=== PATIENT | female | born 1965 | race Caucasian/White ===

== ENCOUNTER 2022-08-30 11:29 | Outpatient (OUT) | payer OTHER, SELFPAY ==
--- NOTE | 2022-08-30 11:44 | XR_ITS ---
The [address] [address] Patient Name: CLARISSA BANEGAS MRN: [id number] date: 1965 Sex: F Assigned Patient Location: [facility] Current Patient Location: [facility] Accession/Order Number: [id number] Exam Date: 08/30/2022 11:44 Report Date: 08/30/2022 13:13 At the request of: EFRAIN RDZ Procedure: XR foot LT min 3V PROCEDURE: XR foot LT min 3V HISTORY: LEFT FOOT PAIN ; acute left heel pain; no known injury COMPARISON: None. FINDINGS: BONES:Small degenerative enthesophyte at the Achilles tendon insertion into the calcaneus. No calcaneal plantar spur. Mild degenerative changes of the tarsal-metatarsal joints and the first metatarsophalangeal joint. No fracture, dislocation, bone lesion. SOFT TISSUES:No visible soft tissue swelling. EFFUSION:None visible. OTHER: Negative. IMPRESSION: 1. Small Achilles tendon degenerative enthesophyte of uncertain clinical significance. 2. No acute or specific findings to account for patient's symptoms. Electronically authenticated by: YARITZA BOYER Date: 08/30/2022 13:13
== END 2022-08-30 11:30 ==
LOC: RAD 11:29
PROVIDERS: PCP Family Medicine; Visit Provider Student in an Organized Health Care Education/Training Program
DX: M79.672 Pain in left foot (principal)
CPT/HCPCS: 73630

== ENCOUNTER 2022-09-01 06:58 | Outpatient (RCR) | payer OTHER, SELFPAY | END 2022-09-22 13:20 | disposition home or self-care (01) | LOC: PT 06:58 | PROVIDERS: PCP Family Medicine; Visit Provider Student in an Organized Health Care Education/Training Program | DX: M79.672 Pain in left foot (principal) | CPT/HCPCS: 97010; 97035; 97110; 97140; 97161; 97530 ==

== ENCOUNTER 2024-01-03 08:55 | Outpatient (OUT) | payer OTHER, SELFPAY ==
[2024-01-03 09:27] LABS: Basophils Percent Auto 1.2 % (0.2-2.0); Eosinophils Absolute Auto 0.2 10^3/uL (0.0-0.7); Eosinophils Percent Auto 4.9 % (0.9-7.0); Hematocrit 40.1 % (36.0-48.0); Hemoglobin 12.9 g/dL (12.0-16.0); Immature Granulocytes Abs Auto 0.01 10^3/uL (0.00-0.03); Immature Granulocytes Pct Auto 0.3 % (0.0-0.5); Lymphocytes Absolute Auto 1.7 10^3/uL (1.2-3.8); Lymphocytes Percent Auto 48.1 % (20.5-60.0); Mean Corpuscular HGB Conc 32.2 g/dL (29.9-35.2); Mean Corpuscular Hemoglobin 29.9 pg (26.7-34.0); Mean Platelet Volume 10.3 fL (9.5-13.5); Monocytes Absolute Auto 0.4 10^3/uL (0.3-0.8); Monocytes Percent Auto 11.5 % (1.7-12.0); Neutrophils Absolute Auto 1.2 10^3/uL (1.4-6.5); Platelet Count 256 10^3/uL (150-450); Red Blood Count 4.31 10^6/uL (4.20-5.40); Red Cell Distribution Width 12.4 % (11.0-15.0); White Blood Count 3.5 10^3/uL (4.0-11.0)
[2024-01-03 10:28] LABS: Alanine Aminotransferase 21 U/L (14-59); Albumin Level 3.6 g/dL (3.4-5.0); Alkaline Phosphatase 130 U/L (46-116); Anion Gap 12.7; Aspartate Amino Transferase 20 U/L (15-37); BUN Creatinine Ratio 28.4; Bilirubin Direct 0.2 mg/dL (0.0-0.2); Calcium 9.5 mg/dL (8.5-10.1); Carbon Dioxide 28.4 mmol/L (21.0-32.0); Chloride 107 mmol/L (98-107); Chol HDL Ratio 2.9; Cholesterol 151 mg/dL (<=200); Estimated GFR (African America >60 (>=60 mL/min/1.73m^2); Estimated GFR (Non-African Ame >60 (>=60 mL/min/1.73m^2); Globulin 3.6 g/dL; Glucose 87 mg/dL (74-106); HDL Cholesterol 52 mg/dL (40-60); LDL Cholesterol Calculated 83.6 mg/dL; Potassium 4.1 mmol/L (3.5-5.1); Sodium 144 mmol/L (136-145); Thyroid Stimulating Hormone 1.369 uIU/mL (0.358-3.740); Total Protein 7.2 g/dL (6.4-8.2); Triglycerides 77 mg/dL (<=150); VLDL CHOLESTEROL 15.4 mg/dL
[2024-01-03 10:41] LABS: Bilirubin Total 0.8 mg/dL (0.2-1.0)
[2024-01-03 11:49] LABS: Estimated Average Glucose 105 mg/dL; Glycohemoglobin A1C 5.3 % (4.5-6.2)
== END 2024-01-03 08:56 | disposition home or self-care (01) ==
LOC: LAB 08:57
PROVIDERS: PCP Family Medicine; Visit Provider Family Medicine
DX: Z00.00 Encounter for general adult medical examination without abnormal findings (principal); E55.9 Vitamin D deficiency, unspecified
CPT/HCPCS: 36415; 80048; 80061; 80076; 82306; 83036; 84443; 85025

== ENCOUNTER 2024-03-18 10:41 | Outpatient (OUT) | payer OTHER, SELFPAY ==
--- NOTE | 2024-03-18 | XR_ITS ---
The [address] [address] Patient Name: CLARISSA BANEGAS MRN: [id number] date: 1965 Sex: F Assigned Patient Location: [facility] Current Patient Location: Accession/Order Number: [id number] Exam Date: 03/18/2024 10:42 Report Date: 03/19/2024 06:49 At the request of: SEPIDEH LIAO Procedure: XR foot LT min 3V PROCEDURE: XR foot LT min 3V HISTORY: LEFT FOOT PAIN ; first metatarsophalangeal joint pain COMPARISON: XR foot left 08/30/2022 FINDINGS: BONES:No fracture, acute abnormality, or significant arthropathy. Calcaneal plantar spur. SOFT TISSUES:No visible soft tissue swelling. EFFUSION:None visible. OTHER: Negative. XR/XR foot LT min 3V IMPRESSION: 1. No acute abnormality or significant degenerative joint disease. Electronically authenticated by: YARITZA BOYER Date: 03/19/2024 06:49
== END 2024-03-18 10:42 | disposition home or self-care (01) ==
LOC: RAD 10:41
PROVIDERS: PCP Family Medicine; Visit Provider Podiatrist Foot & Ankle Surgery
DX: M79.672 Pain in left foot (principal)
CPT/HCPCS: 73630

== ENCOUNTER 2024-04-16 12:48 | Outpatient (OUT) | payer OTHER, SELFPAY ==
[2024-04-16 13:05] LABS: Hematocrit 39.9 % (36.0-48.0); Hemoglobin 12.6 g/dL (12.0-16.0); Mean Corpuscular HGB Conc 31.6 g/dL (29.9-35.2); Mean Corpuscular Hemoglobin 29.9 pg (26.7-34.0); Mean Corpuscular Volume 94.8 fL (81.0-99.0); Mean Platelet Volume 10.4 fL (9.5-13.5); Platelet Count 232 10^3/uL (150-450); Red Blood Count 4.21 10^6/uL (4.20-5.40); Red Cell Distribution Width 12.2 % (11.0-15.0); White Blood Count 2.8 10^3/uL (4.0-11.0)
--- OUTSIDE RECORDS SUMMARY | 2024-04-16 13:05 | XMS_ITS | CCD ---
Author Organization [facility] ion Partnership [employer] [facility] [employer] [facility] Care Team Providers Care Historical Site Guide Name Role Phone DR KEN LARRY Admitting Unavailable NADERER, DR KEN Weiner Attending Unavailable NADERER, DR KEN Weiner Primary Care Unavailable ZIEBER, DR YARITZA White Consulting Unavailable NADERER, DR KEN Weiner Consulting Unavailable ARIEL, OTTO Referring Unavailable ARIEL, OTTO Referring Unavailable ARIEL, OTTO Referring Unavailable ARIEL, OTTO Referring Unavailable RATNA, NASHEED Referring Unavailable ARIEL, OTTO Attending Unavailable ARIEL, OTTO Admitting Unavailable ARIEL, OTTO Attending Unavailable RATNA, NASHEED Attending Unavailable ARIEL, OTTO Attending Unavailable ARIEL, OTTO Attending Unavailable Ken Larry MD Primary Care Provider [phone] Ken Larry MD Unavailable Kolanna DO, Emir Unavailable Unavailable Kolich, Emir Attending Unavailable Kolich, Emir Referring Unavailable Naderejerson, Ken Weiner Primary Care Unavailable Kolich, Emir Attending Unavailable Kolich, Emir Referring Unavailable Naderer, Ken Weiner Primary Care Unavailable Kolich DO, Emir Unavailable Unavailable Kolich DO, Emir Unavailable Unavailable Kolich DO, Emir Unavailable Unavailable NADERER, KEN Attending Unavailable NADERER, KEN Attending Unavailable NADERER, KEN Attending Unavailable Allergies Allergy Classification Reported Allergen(s) Allergy Type Date of Onset Reaction(s) Facility (1 source) TETANUS AND DIPHTHER. TOX (PF); Translations: [TETANUS AND DIPHTHER. TOX (PF)] Propensity to adverse reactions to drug (disorder) 3 [facility]ository (15 sources) Tetanus vaccine Drug Allergy 4 Unknown [facility] Healthcare (4 sources) Tetanus Vaccines and Toxoid; Translations: [Tetanus Vaccines and Toxoid] propensity to adverse reactions to drug [facility] Medications Current Medications Medication Drug Class(es) Dates Sig (Normalized) Sig (Original) acetaminophen 325 mg / HYDROcodone bitartrate 5 mg oral tablet (15 sources) Opioid Agonist Start: 03-10-2024 End: 05-01-2024 take 1 tablet by mouth four times daily as needed for pain HYDROcodone-acetami nophen ([place]) 5-325 MG tablet Indications: Fibromyalgia syndrome Take 1 tablet by mouth 4 (four) times a day as needed for severe pain for up to 15 days 60 tablet 04/16/2024 05/01/2024 Active Start: 01-07-2024 End: 01-14-2024 take 1 tablet by mouth four times daily as needed for pain HYDROcodone-acetaminophen ([place]) 5-325 MG tablet Indications: Fibromyalgia syndrome Take 1 tablet by mouth 4 (four) times a day as needed for severe pain for up to 7 days 28 tablet 01/07/2024 01/14/2024 Active [id number] 200 actuat albuterol 0.09 mg/actuat metered dose inhaler (8 sources) beta2-Adrenergic Agonist Start: 03-25-2024 take 2 puff(s) by inhalation every four hours for wheezing albuterol HFA 90 mcg/act inhaler Indications: Acute bronchitis due to other specified organisms Inhale 2 puffs every 4 (four) hours if needed for shortness of breath or wheezing 18 g 2 03/25/2024 Active amitriptyline hydrochloride 25 mg oral tablet (2 sources) Tricyclic Antidepressant Start: 04-16-2024 take 1 tablet by mouth at bedtime amitriptyline (Elavil) 25 MG tablet Indications: Fibromyalgia syndrome Take 1 tablet (25 mg) by mouth at bedtime 30 tablet 3 04/16/2024 Active Start: 04-16-2024 take 1 tablet by noah th at bedtime amitriptyline (Elavil) 25 MG tablet Indications: Fibromyalgia syndrome Take 1 tablet (25 mg) by mouth at bedtime 30 tablet 3 04/16/2024 Active amLODIPine 2.5 mg oral tablet (15 sources) Dihydropyridine Calcium Channel Suresh Start: 08-21-2023 End: 08-20-2024 take 1 tablet by mouth twice daily at bedtime amLODIPine (Norvasc) 2.5 MG tablet Indications: Essential hypertension, benign (CMS/HCC) TAKE 1 TABLET BY MOUTH TWICE DAILY IN THE MORNING and BEFORE bedtime 60 tablet 3 02/11/2024 Active atorvastatin 10 mg oral tablet (15 sources) HMG-CoA Reductase Inhibitor Start: 10-03-2023 take 1 tablet by mouth once daily atorvastatin (Lipitor) 10 MG tablet Indications: Dyslipidemia (CMS/HCC) Take 1 tablet (10 mg) by mouth Daily 90 tablet 3 10/03/2023 Active benzonatate 200 mg oral capsule (8 sources) Non-narcotic Antitussive Start: 03-25-2024 take 1 capsule by mouth three times daily as needed for cough benzonatate (Tessalon) 200 MG capsule Indications: Acute bronchitis due to other specified organisms Take 1 capsule (200 mg) by mouth 3 (three) times a day as needed for cough Do not crush or chew. 20 capsule 1 03/25/2024 Active cefdinir 300 mg oral capsule (2 sources) Cephalosporin Antibacterial Start: 03-13-2024 End: 03-25-2024 take 1 capsule by mouth in the morning cefdinir (Omnicef) 300 MG capsule Indications: Upper respiratory tract infection, unspecified type Take 1 capsule (300 mg) by mouth in the morning and 1 capsule (300 mg) before bedtime. Do all this for 10 days. 20 capsule 03/13/2024 03/25/2024 Discontinued celecoxib 200 mg oral capsule (16 sources) Nonsteroidal Anti-inflammatory Drug Start: 04-14-2024 take 1 capsule by mouth twice daily as needed for pain celecoxib (CeleBREX) 200 MG capsule Indications: Chronic pain syndrome Take 1 capsule (200 mg) by mouth 2 (two) times a day as needed for mild pain or moderate pain 180 capsule 3 04/14/2024 Active Start: 11-27-2023 End: 04-14-2024 take 1 capsule by mouth once daily celecoxib (CeleBREX) 200 MG capsule Indications: Chronic pain syndrome Take 1 capsule (200 mg) by mouth Daily 180 capsule 1 11/27/2023 04/14/2024 Discontinued (Reorder) cholecalciferol 0.05 mg oral capsule (15 sources) Vitamin D Start: 08-21-2023 End: 08-20-2024 take 1 capsule by mouth once daily cholecalciferol (Vitamin D-3) 50 MCG (1999) capsule Indications: Vitamin D deficiency Take 1 capsule (50 mcg) by mouth Daily 30 capsule 11 08/21/2023 08/20/2024 Active FLUoxetine 40 mg oral capsule (15 sources) Serotonin Reuptake Inhibitor Start: 05-21-2023 End: 05-20-2024 take 1 capsule by mouth in the morning FLUoxetine (PROzac) 40 MG capsule Indications: Generalized anxiety disorder (CMS/HCC) Take 1 capsule (40 mg) by mouth in the morning. 30 capsule 11 05/21/2023 05/20/2024 Active gabapentin 600 mg oral tablet (17 sources) Anti-epileptic Agent Start: 04-16-2024 take 1 tablet by mouth in the morning gabapentin (Neurontin) 600 MG tablet Indications: Fibromyalgia syndrome Take 1 tablet (600 mg) by mouth in the morning and 1 tablet (600 mg) before bedtime. 180 tablet 2 04/16/2024 Active Start: 04-16-2024 take 1 tablet by noah th in the morning gabapentin (Neurontin) 600 MG tablet Indications: Fibromyalgia syndrome Take 1 tablet (600 mg) by mouth in the morning and 1 tablet (600 mg) before bedtime. 180 tablet 2 04/16/2024 Active Start: 08-20-2023 End: 04-16-2024 take 1 tablet by mouth at bedtime gabapentin (Neurontin) 600 MG tablet Indications: Chronic pain syndrome take 1 tablet by mouth at bedtime 90 tablet 2 08/20/2023 04/16/2024 Discontinued (Reorder) levoFLOXacin 750 mg oral tablet (3 sources) Quinolone Antimicrobial Start: 03-25-2024 End: 04-01-2024 take 1 tablet by mouth once daily levoFLOXacin (Levaquin) 750 MG tablet Indications: Acute bronchitis due to other specified organisms Take 1 tablet (750 mg) by mouth Daily for 7 days 7 tablet 03/25/2024 04/01/2024 Active meloxicam 15 mg oral tablet (4 sources) Nonsteroidal Anti-inflammatory Drug Start: 11-13-2023 take 1 tablet by mouth once daily meloxicam 15 mg tablet take 1 tablet by oral route daily - Active metoprolol tartrate 50 mg oral tablet (15 sources) beta-Adrenergic Suresh Start: 07-17-2023 End: 07-16-2024 take 1 tablet by mouth in the morning metoprolol tartrate (Lopressor) 50 MG tablet Indications: Essential hypertension, benign (CMS/HCC) Take 1 tablet (50 mg) by mouth in the morning and 1 tablet (50 mg) before bedtime. 180 tablet 3 07/17/2023 07/16/2024 Active predniSONE 10 mg oral tablet (5 sources) Start: 04-16-2024 take 6 tablets by mouth once daily, then take 4 tablets by mouth once daily, then take 2 tablets by mouth once daily, then take 1 tablet by mouth once daily predniSONE (Deltasone) 10 MG tablet Indications: Fibromyalgia syndrome 6 PO daily x 3 days, 4 PO daily x 3 days, 2 PO daily x 3 days, 1 PO daily x 3 days 39 tablet 04/16/2024 Active Start: 04-16-2024 take 6 tablets by mo uth once daily, then take 4 tablets by mouth once daily, then take 2 tablets by mouth once daily, then take 1 tablet by mouth once daily predniSONE (Deltasone) 10 MG tablet Indications: Fibromyalgia syndrome 6 PO daily x 3 days, 4 PO daily x 3 days, 2 PO daily x 3 days, 1 PO daily x 3 days 39 tablet 04/16/2024 Active Start: 03-25-2024 End: 03-31-2024 take 1 tablet by mouth once daily predniSONE (Deltasone) 50 MG tablet Indications: Acute bronchitis due to other specified organisms Take 1 tablet (50 mg) by mouth Daily for 6 days 6 tablet 03/25/2024 03/31/2024 Active tiZANidine 4 mg oral tablet (16 sources) Central alpha-2 Adrenergic Agonist Start: 08-21-2023 End: 02-25-2024 take 2 tablets by mouth at bedtime tiZANidine (Zanaflex) 4 MG tablet Indications: Fibromyalgia syndrome Take 2 tablets (8 mg) by mouth at bedtime 60 tablet 5 02/25/2024 Active Completed/Discontinued Medications Medication Drug Class(es) Dates Sig (Normalized) Sig (Original) ibuprofen 800 mg oral tablet (3 sources) Nonsteroidal Anti-inflammatory Drug Start: 10-03-2023 End: 10-02-2024 take 1 tablet by mouth every eight hours ibuprofen 800 MG tablet Indications: Fibromyalgia syndrome Take 1 tablet (800 mg) by mouth every 8 (eight) hours 90 tablet 5 10/03/2023 01/07/2024 Discontinued Problems Active Problems Problem Classification Problem Date Documented Date Episodic/Chronic Anxiety disorders (17 sources) Generalized anxiety disorder; Translations: [Generalized anxiety disorder] Onset: 07-31-2023 07-31-2023 Chronic Disorders of lipid metabolism (15 sources) Dyslipidemia; Translations: [Hyperlipidemia, unspecified] Onset: 07-31-2023 07-31-2023 Chronic E Codes: Fall (2 sources) Unspecified fall, initial encounter; Translations: [Unspecified fall, initial encounter] Onset: 12-26-2022 Episodic Essential hypertension (19 sources) Benign essential hypertension; Translations: [Essential (primary) hypertension] Onset: 07-31-2023 07-31-2023 Chronic Fracture of upper limb (2 sources) Fracture of unspecified carpal bone, right wrist, initial encounter for open fracture; Translations: [Fracture of unspecified carpal bone, right wrist, initial encounter for open fracture] Onset: 12-29-2022 Episodic Fracture of upper limb (4 sources) Other extraarticular fracture of lower end of left radius, initial encounter for closed fracture; Translations: [Fracture of unspecified carpal bone, left wrist, initial encounter for closed fracture] Onset: 12-26-2022 Episodic Genitourinary symptoms and ill-defined conditions (15 sources) Genuine stress incontinence; Translations: [Stress incontinence (female) (male)] Onset: 02-27-2023 02-27-2023 Chronic Malaise and fatigue (15 sources) Fatigue; Translations: [Chronic fatigue, unspecified] Onset: 02-27-2023 02-27-2023 Chronic Menopausal disorders (15 sources) Atrophic vaginitis; Translations: [Postmenopausal atrophic vaginitis] Onset: 02-27-2023 02-27-2023 Chronic Nutritional deficiencies (15 sources) Vitamin D deficiency; Translations: [Vitamin D deficiency, unspecified] Onset: 02-27-2023 02-27-2023 Chronic Osteoarthritis (8 sources) Unilateral primary osteoarthritis, right hip Onset: 11-13-2023 11-13-2023 Chronic Other aftercare (4 sources) Long-term current use of drug therapy; Translations: [Other extermination supervisor (current) drug therapy] Onset: 04-16-2024 04-16-2024 Episodic Other connective tissue disease (20 sources) Fibromyalgia; Translations: [Fibromyalgia] Onset: 02-27-2023 02-27-2023 Episodic Other nervous system disorders (16 sources) Chronic pain syndrome; Translations: [Chronic pain syndrome] Onset: 02-27-2023 02-27-2023 Chronic Other non-traumatic joint disorders (8 sources) Other specified joint disorders, right hip Onset: 11-13-2023 11-13-2023 Episodic Other non-traumatic joint disorders (8 sources) Pain in right hip Onset: 11-13-2023 11-13-2023 Episodic Other non-traumatic joint disorders (4 sources) Joint pain; Translations: [Pain in unspecified joint] Onset: 04-16-2024 04-16-2024 Episodic Other nutritional; endocrine; and metabolic disorders (1 source) Morbid obesity; Translations: [Morbid (severe) obesity due to excess calories] Onset: 02-27-2023 02-27-2023 Chronic Other nutritional; endocrine; and metabolic disorders (18 sources) Severe obesity; Translations: [Class 3 severe obesity without serious comorbidity with body mass index (BMI) of 40.0 to 44.9 in adult] Onset: 02-27-2023 01-07-2024 Chronic Residual codes; unclassified (2 sources) Pain, unspecified; Translations: [Pain, unspecified] Onset: 01-02-2023 Episodic Sprains and strains (8 sources) Strain of muscle, fascia and tendon of right hip, initial encounter Episodic Thyroid disorders (20 sources) Adriane thyroiditis; Translations: [Autoimmune thyroiditis] Onset: 02-27-2023 02-27-2023 Chronic Unclassified (2 sources) Post-op; Translations: [Post-op] Onset: 01-12-2023 Past or Other Problems Problem Classification Problem Date Documented Da te Episodic/Chronic Acute bronchitis (10 sources) Acute infective bronchitis; Translations: [Acute bronchitis due to other specified organisms] Onset: 03-25-2024 Resolved: 04-16-2024 03-25-2024 Episodic Deficiency and other anemia (15 sources) Iron deficiency anemia; Translations: [Iron deficiency anemia, unspecified] Onset: 02-27-2023 02-27-2023 Episodic Lymphadenitis (15 sources) Lymphoid hyperplasia; Translations: [Enlarged lymph nodes, unspecified] Onset: 02-27-2023 02-27-2023 Episodic Other connective tissue disease (15 sources) Pain in right foot; Translations: [Pain in right foot] Onset: 07-31-2023 07-31-2023 Episodic Other non-traumatic joint disorders (15 sources) Pain in right knee; Translations: [Pain in joint, lower leg] Onset: 07-31-2023 07-31-2023 Episodic Other upper respiratory infections (15 sources) Acute pansinusitis; Translations: [Acute pansinusitis, unspecified] Onset: 07-31-2023 Resolved: 01-07-2024 07-31-2023 Episodic Results Test Name Value Interpretation Reference Range Facility ALL CBC WITH AUTO DIFFon BASOPHILS ABSOLUTE AUTO 0 [facility] Basophils/100 WBC (Bld) 1.2 % 0.2 - 2.0 % [facility] Eosinophils/100 WBC (Bld) 4.9 % 0.9 - 7.0 % [facility] Erythrocyte distribution width (RBC) [Ratio] 12.4 % 11.0 - 15.0 % [facility] Hematocrit (Bld) [Volume fraction] 40.1 % 36.0 - 48.0 % [facility] Hemoglobin (Bld) [Mass/Vol] 12.9 g/dL 12.0 - 16.0 g/dL [facility] IMMATURE GRANULOCYTES ABS AUTO 0.01 [facility] Immature granulocytes/100 WBC (Bld) 0.3 % 0.0 - 0.5 % [facility] Interpretation and review of laboratory results Abnormal [facility] LYMPHOCYTES ABSOLUTE AUTO 1.7 [facility] Lymphocytes/100 WBC (Bld) 48.1 % 20.5 - 60.0 % [facility] MCH (RBC) [Entitic mass] 29.9 pg 26.7 - 34.0 pg [facility] MCHC (RBC) [Mass/Vol] 32.2 g/dL 29.9 - 35.2 g/dL [facility] MCV (RBC) [Entitic vol] 93 fL 81.0 - 99.0 fL [facility] MONOCYTES ABSOLUTE AUTO 0.4 [facility] Monocytes/100 WBC (Bld) 11.5 % 1.7 - 12.0 % [facility] NEUTROPHILS ABSOLUTE AUTO 1.2 Low [facility] Neutrophils/100 WBC (Bld) 34 % Low 43.0 - 75.0 % [facility] Platelet mean volume (Bld) [Entitic vol] 10.3 fL 9.5 - 13.5 fL [facility] EO # 0.2 [facility] PLT 256 [facility] RBC 4.31 [facility] WBC 3.5 Low [facility] No Panel InformationOrdered By: Emir Watts on 11-20-2023 MRI Hip WO Contrast Right 1 [facility] Follow-Upon 02-08-2023 Follow-Up [id number] Danuta Hernandez 1965 F Date Provider Department Center 02/08/2023 AMBER CASTANEDA [facility] No family history on file Level of Service:09226 ID POSTOP FOLLOW UP VISIT RELATED TO ORIGINAL PX Reason for Visit and Comments: Follow-up [073608] [facility] 36on 01-29-2023 36 Patient stated that her incision has puss coming out, its red and irritate. Theres no fever. And has been going on for a few days now. Please call her back with further instructions. [facility] Orders Onlyon 01-29-2023 Orders Only [id number] Danuta Hernandez 1965 F Date Provider Department Center 01/29/2023 RENETTA PINTO MP ORTHO MPORTHO No family history on file [facility] Telephoneon 01-29-2023 Telephone [id number] Danuta Hernandez 1965 F Date Provider Department Center 01/29/2023 COLETTE DICKERSON MP ORTHO MPORTHO No family history on file Reason for Visit and Comments: Post-op Problem [[id number]] [facility] Follow-Upon 01-12-2023 Follow-Up [id number] Danuta Hernandez 1965 F Date Provider Department Center 01/12/2023 AMBER CASTANEDA [facility] No family history on file Level of Service:81044 ID POSTOP FOLLOW UP VISIT RELATED TO ORIGINAL PX Reason for Visit and Comments: Post-op [483] [facility] HPon 01-02-2023 HP H&P reviewed. The patient was examined and there are no changes to the H&P. [facility] OPNOTEon 01-02-2023 OPNOTE ORIF, FRACTURE, WRIST, distal (L) Operative Note Date: 01/02/2023 Location: [facility] OR Name: Danuta Hernandez, : 1965, Diagnosis Pre-op Diagnosis * Open fracture of right wrist, initial encounter [S62.101B] Post-op Diagnosis * Open fracture of right wrist, initial encounter [S62.101B] Procedures * ORIF, FRACTURE, WRIST, distal Surgeons * Otto Ariel - Primary Procedure Summary Anesthesia: Regional ASA: III Estimated Blood Loss: 10 mL Implants Type Name Action Serial No. Plate PLATE,DSTL-RADUS,2. 4M,6H/3H,LT - [id number] Implanted Screw SCREW,LOCKING,2.4M, 16M,STAR - [id number] Implanted Screw SCREW,LOCKING,2.4M, 18M,STAR - [id number] Implanted Screw SCREW,LOCKING,2.4M, 20M,STAR - [id number] Implanted Screw SCREW,SLF-TPNG,ED EX,2.4M,24M - [id number] Wasted Screw SCREW,CORTEX,2.7M,T 8,12M - [id number] Implanted Screw SCREW,CORTEX,2.7M,T 8,14M - [id number] Implanted Pin K-WIRE,TROCAR PT,1.11Y198GY - [id number] Used, Not Implanted Pin K-WIRE,#1,[id number] - [id number] Used, Not Implanted Staff: Operator Automated Process: Liseth Mathews RN Scrub Person: Leola Maloney Indications: Danuta Hernandez is an 57 y.o. female who is having surgery for Open fracture of right wrist, initial encounter [S62.101B]. Procedure Details: The patient was seen in the preoperative area. The risks, benefits, complications, treatment options, non-operative alternatives, expected recovery and outcomes were discussed with the patient. The possibilities of reaction to medication, pulmonary aspiration, injury to surrounding structures, bleeding, recurrent infection, the need for additional procedures, failure to diagnose a condition, and creating a complication requiring transfusion or operation were discussed with the patient. The patient concurred with the proposed plan, giving informed consent. The site of surgery was properly noted/marked if necessary per policy. The patient has been actively warmed in preoperative area. Preoperative antibiotics have been ordered and given within 1 hours of incision. Venous thrombosis prophylaxis are not indicated. Findings: Comminution at the metaphyseal level of the distal radius with significant loss of the appropriate volar tilt as well as radial translation of the distal fragment Under regional anesthetic, patient's left upper extremity was prepped and draped for the proposed procedure. Tourniquet applied to the proximal humerus was inflated to 250 mmHg following examination of the limb for application of an Esmarch bandage. Standard FCR approach was used. A longitudinal incision was made along the course of the FCR, hemostasis obtained with cautery. FCR subsheath incised and the FCR was retracted ulnarly to protect the median nerve. Pronator quadratus was then elevated from the radial border. Fracture site was then irrigated and debrided. Provisional open reduction was achieved with traction and manipulation of the fracture and provisionally secured with a 0.062 inch Isaac wire. A [employer] distal radius plate was then positioned and secured with 2 pins. Radiographs confirmed excellent positioning of the plate and fixation achieved to the shaft followed with a cortical nonlocking screw distally to bring the distal fragment against the plate. As it was tightened the 2 pins to the plate as well as the transfixion pin were removed. Excellent reduction was achieved restoring volar tilt. At this time the remaining screws were filled in appropriate fashion and final radiographs demonstrated excellent fixation have been achieved with essentially anatomical reduction. Wound irrigated with normal saline solution and closed subcutaneous tissue with 0 Vicryl and skin closed with a 4-0 Biosyn. Sterile bulky hand dressing was applied. Complications: None; patient tolerated the procedure well. Disposition: PACU - hemodynamically stable. Condition: stable Otto Ariel Normal [facility] POCT GLUCOSE METER UNSOLICIT ED RESULTSon 01-02-2023 Glucose [Mass/Vol] 80 mg/dL Normal 70-105 [facility] Comment on above: Order Comment: Waive d Testing in the ED is performed under the ED CLIA certificate #[id number]. Result Comment: jenc [email or web address] Performed By: #### L [id number] ####[facility] ([facility])[address] [place] [address] on 12-29-2022 HP ---- Attestation signed by Otto George MD at 01/02/2023 9:05 AM I personally saw and examined the patient on the same date of service as resident/fellow . I discussed the findings and therapeutic plan with the resident/fellow . I agree with the documentation, except for any edits/updates below. Teaching Physician's Revisions: ---- Orthopedic Surgery Subjective Follow-up of the Left Wrist (ED follow up ) 12/29/22 Danuta Hernandez is a 57 y.o. year old female presenting for evaluation of left distal radius fracture after a fall sustained on . Radiographs at that time showed a distal radius fracture with apex volar angulation and dorsal comminution. The fracture was well reduced and splinted in the ED in neutral position. Patient denies any new concerns at this time. Patient has noted decrease in her swelling in her fingers. Patient denies any new pains or other injuries. Patient denies any numbness or tingling or fevers. Patient History Past Surgical History: Procedure Laterality Date APPENDECTOMY CHOLECYSTECTOMY JOINT REPLACEMENT TONSILLECTOMY Past Medical History: Diagnosis Date Hypertension Allergies Allergen Reactions Tetanus And Diphther. Tox (Pf) Current Outpatient Medications Medication Instructions amLODIPine (NORVASC) 2.5 mg, oral, 2 times daily RT atorvastatin (Lipitor) 10 mg tablet Take 1 (one) Tablet by mouth at bedtime celecoxib (CeleBREX) 200 mg capsule take 1 capsule by mouth twice a day if needed cholecalciferol, vitamin D3, 50 mcg (2,000 unit) capsule 1 capsule, oral, Daily FLUoxetine (PROZAC) 40 mg, oral, Daily gabapentin (NEURONTIN) 600 mg, oral, Nightly HYDROcodone-acetami nophen ([place]) 5-325 mg tablet 1 tablet, oral, Every 6 hours PRN ibuprofen 600 mg, oral, Every 6 hours PRN metoprolol tartrate (LOPRESSOR) 50 mg, oral, 2 times daily RT tiZANidine (ZANAFLEX) 8 mg, oral, Nightly traMADol (Ultram) 50 mg tablet take 1 tablet by mouth four times a day if needed Objective General: Body mass index is 44.48 kg/m???. 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 year old female with Open fracture of right wrist, initial encounter Plan: - Plan for OR on Sunday01/02/23 for ORIF Left distal radius - Patient educated on procedure, benefits and risks. Patient is amenable to the procedure and was consented in clinic - Continue Pain control - Patient educated on splint care and NWB LUE - Patient educated on preoperative instructions including no thing by mouth after midnight, arrive 2 hours prior to procedure, keep site clean and dry. Renetta Kinsey MD Orthopaedic Surgery PGY-[address] [facility] 12/29/22 10:57 AM [facility] Labon 12-29-2022 Lab [id number] Danuta Hernandez 1965 F Date Provider Department [facility] 12/29/2022 [id number] MP LAB RESOURCE MP DRAW Medical Pavi No family history on file [facility] MRSA/MSSA DNA NASALon 2022 MRSA DNA Negative Normal Negative [facility] Comment on above: Order Comment: Testi ng methodology is an automated qualitative in vitro diagnostic test for the directdetection and differentiation of Staphylococcus aureus (SA) DNA and methicillin-resistant Staphylococcus aureus (MRSA) DNA from nasal swabs in patients at risk for nasal colonization. The test utilizes real-time polymerase chain reaction (PCR) for the amplification of MRSA/SA DNA and fluorogenic target-specific hybridization probes for the detection of the amplified DNA. A negative result does not preclude nasal colonization. Performed By: #### L [id number] ####[facility] [place] [address] MSSA DNA Positive Abnormal Negative [facility] Comment on above: Order Comment: Testi ng methodology is an automated qualitative in vitro diagnostic test for the directdetection and differentiation of Staphylococcus aureus (SA) DNA and methicillin-resistant Staphylococcus aureus (MRSA) DNA from nasal swabs in patients at risk for nasal colonization. The test utilizes real-time polymerase chain reaction (PCR) for the amplification of MRSA/SA DNA and fluorogenic target-specific hybridization probes for the detection of the amplified DNA. A negative result does not preclude nasal colonization. Performed By: #### L [id number] ####[facility] [place] [address] Office Visiton 12-29-2022 Follow-up visit [id number] Danuta Hernandez 1965 F Date Provider Department Center 12/29/2022 [facility] No family history on file Level of Service:[id number] ID OFFICE/OUTPATIENT [facility] 30-44 MINUTES Reason for Visit and Comments: Follow-up [999676] - ED follow up [facility] EDNURSon 12-26-2022 EDNURS Mode of arrival (squad #, walk in, police, etc): private auto Chief complaint(s): possible left wrist broken Arrival Note (brief scenario, treatment 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 Pt also states her left hip is hurting. Pt had sling at home put that on and is icing her wrist. [facility] EDPROVon 12-26-2022 EDPROV HPI Chief Complaint Patient presents with Wrist Injury Initial evaluation completed by Dr. Moncada at 9:15 PM. Danuta Hernandez is a 57 y/o female presenting to the ED with c/o wrist injury. The pt states that she had a fall around 5:30 PM today tripping on the crevice between her concrete driveway and sidewalk, after which her daughter brought her in to the ER. She notes pain with movement, as well as, not being able to rotate her left wrist. Additionally, the pt notes an obvious deformity and right hip pain. The pt denies numbness or tingling, nausea, vomiting, anticoagulants, and leg pain. The pt notes right hip pain, able to bear weight, and a Hx of high blood pressure. The pt notes taking acetaminophen at 6:00 PM. History provided by: Patient Wrist Injury Location: Wrist Wrist location: L wrist Injury: yes Time since incident: 4 hours Mechanism of injury: fall Fall: Fall occurred: Tripped Impact surface: [place] Point of impact: Hands Entrapped after fall: no Pain details: Severity: Moderate Onset quality: Sudden Duration: 4 hours Timing: Constant Dislocation: no Foreign body present: No foreign bodies Relieved by: Acetaminophen Associated symptoms: no fever [place] Coma Scale Score: 15 Patient History Past Medical History: Diagnosis Date Hypertension Past Surgical History: Procedure Laterality Date APPENDECTOMY CHOLECYSTECTOMY JOINT REPLACEMENT TONSILLECTOMY No family history on file. Social History Tobacco Use Smoking status: Never Smokeless tobacco: Never Vaping Use Vaping Use: Never used Substance Use Topics Alcohol use: Not Currently Drug use: Never Review of Systems Review of Systems Constitutional: Negative for chills and fever. HENT: Negative for ear discharge and ear pain. Eyes: Negative for discharge and redness. Respiratory: Negative for cough and shortness of breath. Cardiovascular: Negative for chest pain and palpitations. Gastrointestinal: Negative for nausea and vomiting. Genitourinary: Negative for dysuria and frequency. Musculoskeletal: Positive for arthralgias (right hip pain, left wrist pain with obvious deformity). Negative for myalgias. Obvious deformity Skin: Negative for color change and wound. Neurological: Negative for dizziness and numbness. Physical Exam ED Triage Vitals Temp Heart Rate Resp BP 12/26/22194612/26/22194812/26/22194612/26/221948 (!) 2.7 ???C (36.8 ???F) 67 20 (!) 193/97 SpO2 Temp Source Heart Rate Source Patient Position 12/26/22194812/26/221946 -- 12/26/221946 100 % Oral Sitting BP Location FiO2 (%) 12/26/221946 -- Left arm Physical Exam Procedures ED Course & MDM Diagnoses as of 01/01/23722 Fall, initial encounter Closed fracture of left wrist, initial encounter I, Sophie Richmond scribe, documented on behalf of Dr. Moncada. Chief complaint wrist injury Differential Diagnosis includes but is not limited to Wrist sprain, wrist fracture, other orthopedic injury. Plan of Care: inpatient consult to orthopaedic surgery, apply ice, ibuprofen tablet 800 mg, and Xray of left wrist. Medical Decision Making Attestation: Provider Statement DIOGENES: Provider Statement 2nd Scribe. By electronically signing this emergency patient record, the Emergency Physician/UPPER CUTTER/PA-C attests that all entries made into the electronic medical record by the scribe prior to the Physician/UPPER CUTTER/PA-C signature reflect an accurate accounting of the evaluation and care rendered by that Emergency Physician/UPPER CUTTER/PA-C. The Emergency Physician/UPPER CUTTER/PA-C assumes full responsibility for those entries. The Emergency Physician/UPPER CUTTER/PA-C also attests that any patient testing or treatment that was instituted by nursing staff. Bandar Moncada MD 01/01/23 0741 [facility] MM screening mammo BI w/CADo n 08-19-2021 MM screening mammo BI w/CAD [facility] [address] Mammography Report Signed Patient: Danuta Hernandez MR#: [id number] 802 : 1965 Acct:[id number] Age/Sex: 56 / F ADM Date: 08/18/21 Loc: IN Room: Type: [facility] Attending Dr: Abhi Glass DO Ordering Provider: Abhi Glass DO Date of Service: 08/18/21 MM/MM screening mammo BI w/CAD: screening;Encounter for screening mammogram for malignant ne Copies to: MD Abhi Wade DO CLINICAL DATA: Screening for malignancy. BILATERAL SCREENING MAMMOGRAMS - FULL FIELD DIGITAL WITH TOMOSYNTHESIS AND CAD Tomosynthesis craniocaudal and mediolateral oblique views of both breasts were obtained using low- dose digital technique. Comparison is made to prior studies from 07/15/2020, 10/09/2017, 08/27/2016, and 01/05/2015. This examination was reviewed with the aid of CAD. The breast parenchyma has been largely replaced by fat. There is a similar focal asymmetry in the upper outer right breast. Scattered punctate benign-appearing calcifications are present bila terally. There are no dominant masses, typically malignant calcifications or architectural distortion. There has been no significant interval change. MM/MM screening mammo BI w/CAD IMPRESSION: NO MAMMOGRAPHIC EVIDENCE OF MALIGNANCY. ROUTINE FOLLOW-UP IS RECOMMENDED IN ONE YEAR. RESULT CODE: 2 Benign Findings(s) DENSITY CODE: 1 (<25% glandular) FOLLOW UP: 1YR The false-negative rate of mammography is approximately 10-percent. Management of a palpable abnormality must be based on clinical grounds. Patient was entered into a reminder system with a target due date for the next mammogram. Impression dictated by: Emir Elizondo M.D.08/19/2021 9:21 AM Dictation Location: [facility] Transcribed By: [facility] 08/19/21920 Dictated By: Emir Elizondo II, MD 08/19/21914 Signed By: 08/19/21920 [facility] Vital Signs Date Time Vital Sign Value Performing Clinician Facility 04-16-2024 08:010500 Body height 177.8 cm Ken Larry MD Work Phone: [facility] 04-16-2024 08:01-0500 Body mass index (BMI) [Ratio] 45.05 kg/m2 Ken Larry MD Work Phone: [facility] 04-16-2024 08:01-0500 Body temperature 97.11 [degF] Ken Larry MD Work Phone: [facility] 04-16-2024 08:01-0500 Body weight 142.43 kg Ken Larry MD Work Phone: [facility] 04-16-2024 08:01-0500 Diastolic blood pressure 90 mm[Hg] Ken Larry MD Work Phone: [facility] 04-16-2024 08:01-0500 Heart rate 76 /min Ken Larry MD Work Phone: [facility] 04-16-2024 08:01-0500 Respiratory rate 22 /min Ken Larry MD Work Phone: [facility] 04-16-2024 08:01-0500 SaO2% (BldA) [Mass fraction] 96 % Ken Larry MD Work Phone: [facility] 04-16-2024 08:01-0500 Systolic blood pressure 164 mm[Hg] Ken Larry MD Work Phone: [facility] 03-25-2024 10:22-0500 Body height 177.8 cm Ken Larry MD Work Phone: [facility] 03-25-2024 10:22-0500 Body mass index (BMI) [Ratio] 44.19 kg/m2 Ken Larry MD Work Phone: [facility] 03-25-2024 10:22-0500 Body temperature 96.6 [degF] Ken Larry MD Work Phone: [facility] 03-25-2024 10:22-0500 Body weight 139.71 kg Ken Larry MD Work Phone: [facility] 03-25-2024 10:22-0500 Diastolic blood pressure 86 mm[Hg] Ken Larry MD Work Phone: [facility] 03-25-2024 10:22-0500 Heart rate 93 /min Ken Larry MD Work Phone: [facility] 03-25-2024 10:22-0500 Respiratory rate 20 /min Ken Larry MD Work Phone: [facility] 03-25-2024 10:22-0500 SaO2% (BldA) [Mass fraction] 98 % Ken Larry MD Work Phone: [facility] 03-25-2024 10:22-0500 Systolic blood pressure 140 mm[Hg] Ken Larry MD Work Phone: [facility] 01-07-2024 14:19-0400 Body height 177.8 cm Ken Larry MD Work Phone: [facility] 01-07-2024 14:19-0400 Body mass index (BMI) [Ratio] 44.48 kg/m2 Ken Larry MD Work Phone: [facility] 01-07-2024 14:19-0400 Body temperature 97.11 [degF] Ken Larry MD Work Phone: [facility] 01-07-2024 14:19-0400 Body weight 140.62 kg Ken Larry MD Work Phone: [facility] 01-07-2024 14:19-0400 Diastolic blood pressure 70 mm[Hg] Ken Larry MD Work Phone: [facility] 01-07-2024 14:19-0400 Heart rate 57 /min Ken Larry MD Work Phone: [facility] 01-07-2024 14:19-0400 Respiratory rate 22 /min Ken Larry MD Work Phone: [facility] 01-07-2024 14:19-0400 SaO2% (BldA) [Mass fraction] 99 % Ken Larry MD Work Phone: [facility] 01-07-2024 14:19-0400 Systolic blood pressure 124 mm[Hg] Ken Larry MD Work Phone: [facility] 11-13-2023 11:55-0400 Body height 176.53 cm Emir Watts DO [facility] 11-13-2023 11:55-0400 Body mass index (BMI) [Ratio] 45.35 kg/m2 Emir Watts DO [facility] 11-13-2023 11:55-0400 Body weight 141.34 kg Emir Watts DO [facility] Encounters Encounter Date Encounter Type Care Provider Facility Start: 04-16-2024 End: 04-16-2024 Bamboo flowsheet Ken Larry MD Work Phone: [facility] Start: 04-16-2024 End: 04-16-2024 Bamboo flowsheet Ken Larry MD Work Phone: [facility] Start: 04-16-2024 End: 04-16-2024 Office outpatient visit 25 minutes Ken Larry MD Work Phone: [facility] Comment on above: Essential hypertensi on, benign (CMS/HCC) (Primary Dx); Fibromyalgia syndrome; Generalized anxiety disorder (CMS/HCC); Arthralgia, unspecified joint; Class 3 severe obesity due to excess calories without serious comorbidity with body mass index (BMI) of 40.0 to 44.9 in adult (CMS/HCC); Encounter for long-term (current) use of medications Start: 04-14-2024 End: 04-14-2024 Refill Ken Larry MD Work Phone: [facility] Comment on above: Chronic pain syndrom e Start: 04-04-2024 End: 04-04-2024 Refill Ken Larry MD Work Phone: [facility] Comment on above: Fibromyalgia syndrom e Start: 03-25-2024 End: 03-25-2024 Bamboo flowschristophe Larry MD Work Phone: [facility] Start: 03-25-2024 End: 03-25-2024 Bamboo flowsheet Ken Larry MD Work Phone: [facility] Start: 03-25-2024 End: 03-25-2024 Office outpatient visit 15 minutes Ken Larry MD Work Phone: [facility] Comment on above: Acute bronchitis due to other specified organisms (Primary Dx); Class 3 severe obesity due to excess calories without serious comorbidity with body mass index (BMI) of 40.0 to 44.9 in adult (CMS/HCC) Start: 03-25-2024 End: 03-25-2024 Refill Ken Larry MD Work Phone: [facility] Comment on above: Fibromyalgia syndrom e Start: 03-11-2024 End: 03-13-2024 Refill Ken Larry MD Work Phone: [facility] Comment on above: Fibromyalgia syndrom e Start: 03-10-2024 End: 03-10-2024 Refill Ken Larry MD Work Phone: [facility] Comment on above: Fibromyalgia syndrom e Start: 02-25-2024 End: 02-25-2024 Refill Ken Larry MD Work Phone: [facility] Comment on above: Fibromyalgia syndrom e Start: 01-08-2024 End: 01-08-2024 Encounter identifier Emir Watts Work Phone: [facility] Start: 01-08-2024 ambulatory Emir Watts [facility] Start: 01-08-2024 End: 01-08-2024 Encounter identifier Emir Watts Work Phone: [facility] Start: 01-08-2024 ambulatory Emir Watts [facility] Start: 01-07-2024 End: 01-07-2024 Periodic preventive med est patient 40-64yrs Ken Larry MD Work Phone: [facility] Comment on above: Annual physical exam (Primary Dx); Essential hypertension, benign (CMS/[facility]); Fibromyalgia syndrome Start: 01-07-2024 End: 01-07-2024 ambulatory KEN LARRY Not Available Start: 01-07-2024 End: 01-07-2024 Patient encounter procedure Ken Larry MD Work Phone: [facility] Work Phone: Start: 01-03-2024 End: 01-03-2024 Clinisync Result Encounter Ken Larry MD Work Phone: [facility] Unsolicited Start: 01-03-2024 End: 01-03-2024 Clinisync Result Encounter Ken Larry MD Work Phone: [facility] Unsolicited Start: 11-20-2023 End: 11-20-2023 Encounter identifier Emir Watts Work Phone: [facility] Start: 11-13-2023 End: 11-13-2023 Office outpatient new 45 minutes Emir Watts Work Phone: [facility] Start: 07-31-2023 End: 07-31-2023 ambulatory KEN LARRY Not Available Start: 02-08-2023 End: 02-09-2023 ambulatory [facility] Start: 01-12-2023 End: 01-12-2023 ambulatory [facility] Start: 01-02-2023 End: 01-03-2023 ambulatory [facility] Start: 01-02-2023 End: 01-02-2023 ambulatory [facility] Start: 12-29-2022 ambulatory [facility] Start: 12-29-2022 End: 12-29-2022 ambulatory [facility] Start: 12-27-2022 Emergency department patient visit [facility] Start: 12-26-2022 End: 12-27-2022 Emergency department patient visit [facility] Start: 12-19-2021 End: 12-20-[address] KEN LARRY Facility:[facility]1 Procedures Date Procedure Procedure Detail Performing Clinician Start: 01-03-2024 ALL CBC WITH AUTO DIFF Ken Larry MD Work Phone: Start: 11-20-2023 End: 11-20-2023 MRI Lwr Ext Joint wo Contrast Emir Watts DO Start: 11-13-2023 End: 11-13-2023 Radex hip unilateral with pelvis 2-3 views Emir Watts DO Start: 08-19-2021 Mammography Ken melton MD Work Phone: Start: 08-18-2019 Colonoscopy Ken melton MD Work Phone: Plan of Treatment Date Care Activity Detail Author Start: 08-17-2029 Screening for malign ant neoplasm of colon [facility] Start: 07-15-2026 Screening for malign ant neoplasm of cervix [facility] Start: 07-08-2024 End: 07-08-2024 Patient encounter procedure 07/08/2024 1:00 PM EDT Office Visit [facility] [address] [place] [phone] Ken Larry MD [address] [place] [phone] [facility] Start: 05-12-2024 End: 05-12-2024 Patient encounter procedure 05/12/2024 8:45 AM EST Office Visit [facility] [address] [place] [phone] eKn Larry MD [address] [place] [phone] [facility] Start: 04-16-2024 End: 04-16-2025 Basic metabolic 1998 panel - Serum or Plasma Basic metabolic panel Lab Routine Encounter for long-term (current) use of medications Expected: 04/16/2024 (Approximate), Expires: 04/16/2025 [facility] Comment on above: Expected: 04/16/2024 (Approximate), Expires: 04/16/2025 Start: 04-16-2024 End: 04-16-2025 C reactive protein [Mass/volume] in Serum or Plasma C-reactive protein Lab Routine Arthralgia, unspecified joint Expected: 04/16/2024 (Approximate), Expires: 04/16/2025 [facility] Comment on above: Expected: 04/16/2024 (Approximate), Expires: 04/16/2025 Start: 04-16-2024 End: 04-16-2025 CBC W Auto Differential panel - Blood CBC and differential Lab Routine Encounter for long-term (current) use of medications Expected: 04/16/2024 (Approximate), Expires: 04/16/2025 [facility] Comment on above: Expected: 04/16/2024 (Approximate), Expires: 04/16/2025 Start: 04-16-2024 End: 04-16-2025 Erythrocyte sedimentation rate Sedimentation rate, automated Lab Routine Arthralgia, unspecified joint Expected: 04/16/2024 (Approximate), Expires: 04/16/2025 [facility] Work Phone: Comment on above: Expected: 04/16/2024 (Approximate), Expires: 04/16/2025 Start: 04-16-2024 End: 04-16-2025 Nuclear Ab [Titer] in Serum by Immunofluorescence KRISTIN Lab Routine Arthralgia, unspecified joint Expected: 04/16/2024 (Approximate), Expires: 04/16/2025 [facility] Comment on above: Expected: 04/16/2024 (Approximate), Expires: 04/16/2025 Start: 04-16-2024 End: 04-16-2025 Rheumatoid factor [Units/volume] in Serum or Plasma Rheumatoid factor Lab Routine Arthralgia, unspecified joint Expected: 04/16/2024 (Approximate), Expires: 04/16/2025 [facility] Comment on above: Expected: 04/16/2024 (Approximate), Expires: 04/16/2025 Start: 04-16-2024 End: 04-16-2025 TSH W/REFLEX TO FT4 TSH W/REFLEX TO FT4 Lab Routine Class 3 severe obesity due to excess calories without serious comorbidity with body mass index (BMI) of 40.0 to 44.9 in adult ([facility]) Expected: 04/16/2024 (Approximate), Expires: 04/16/2025 [facility] Comment on above: Expected: 04/16/2024 (Approximate), Expires: 04/16/2025 Start: 04-16-2024 End: 04-16-2025 Urate [Mass/volume] in Serum or Plasma Uric acid Lab Routine Arthralgia, unspecified joint Expected: 04/16/2024 (Approximate), Expires: 04/16/2025 [facility] Comment on above: Expected: 04/16/2024 (Approximate), Expires: 04/16/2025 Start: 04-16-2024 End: 04-16-2024 Patient encounter procedure 04/16/2024 7:45 AM EST Office Visit [facility] [address] [place] [address] Ken Larry MD [address] [place] [phone] [facility] Start: 03-25-2024 End: 03-25-2024 Patient encounter procedure 03/25/2024 10:15 AM EST Office Visit [facility] [address] [place] [address] Ken Larry MD [address] [place] [phone] [facility] Comment on above: Arrived Start: 01-07-2024 End: 01-07-2024 Patient encounter procedure 01/07/2024 2:15 PM EDT Office Visit [facility] [address] [place] [address] Ken Larry MD [address] [place] [phone] [facility] Start: 11-11-2023 Influenza vaccination Influenza Vacc ine (#1) [facility] Start: 08-19-2022 Screening for malign ant neoplasm of breast Mammogram [facility] Start: 1986 Screening for malign ant neoplasm of cervix Pap Smear [facility] Start: 1965 Screening for malign ant neoplasm of colon [facility] Immunizations Immunization Date Immunization Notes Care Provider Fa cility 12-12-2018 influenza virus vacc ine, unspecified formulation Ken Larry MD Work Phone: [facility] Payers Date Payer Category Payer Private Health Insurance [employer] [id number] 1965 Unknown [id number] 1965 Unknown [id number] 1965 Unknown [id number] 1965 Unknown [id number] .[id number] 1965 Unknown [id number] .[id number] 1965 Unknown [id number] 1959 Unknown [id number] Social History Date Type Detail Facility Start: 07-31-2023 Tobacco smoking stat [facility] Never smoked tobacco [facility] Start: 07-31-2023 Tobacco use and exposure Smokeless tobacco non-user [facility] Start: 07-31-2023 End: 04-16-2024 History of Social function [facility] Start: 07-31-2023 End: 04-16-2024 Social connection and isolation panel [facility] Do you belong to any clubs or organizations such as jewish groups, unions, fraternal or athletic groups, or school groups? Yes [facility] Are you now , , , , never or living with a partner? [facility] How often to you hav e a drink containing alcohol? Never [facility] How many standard drinks containing alcohol do you have on a typical day? Patient does not drink [facility] Do you feel stress - tense, restless, nervous, or anxious, or unable to sleep at night because your mind is troubled all the time - these days [OSQ] Not at all [facility] (I/We) worried wheth er (my/our) food would run out before (I/we) got money to buy more. Never true [facility] In the past 12 month s, was there a time when you were not able to pay the mortgage or rent on time? No [facility] Start: 1965 Sex assigned at Not on file [facility] Sex Assigned At Female [facility] Tobacco smoking stat us NHIS Unknown if ever smoked [facility] Work Phone: Start: 08-07-2023 Sexual Orientation Choose not to disclose [facility] Start: 11-13-2023 Alcohol intake Alcohol Use Details [facility] Start: 11-13-2023 Tobacco use and exposure Non-Smoking Tobacco Use Details [facility] NEGATED: Highlighted rowStart: 11-13-2023 Tobacco smoking status NHIS Never smoker [facility] Functional Status Date Assessment Result Facility 11-13-2023 Pain severity - 0-10 verbal numeric rating [Score] - Reported 08/19 [facility] Clinical Notes 12-19-2021 to 04-16-2024 Ken Larry MD - 04/16/2024 8:36 AM Jeancarlos Larry MD - 04/16/2024 8:36 AM Jeancarlos Larry MD - 04/16/2024 8:36 AM Jeancarlos Larry MD - 04/16/2024 8:35 AM EST Note Date & Type Note Facility 04-16-2024 History of Presen t illness Narrative Associated Problem(s): Generalized anxiety disorder (CMS/HCC) Symptoms stable and continue prozac. Associated Problem(s): Fibromyalgia syndrome Worsening pain and treat with prednisone. Increase neurontin to BID and add elavil. Associated Problem(s): Essential hypertension, benign ([facility]) BP elevated but previously controlled and monitor PRN. Associated Problem(s): Class 3 severe obesity due to excess calories without serious comorbidity with body mass index (BMI) of 40.0 to 44.9 in adult ([facility]) Weight loss indicated. Images from the original note were not included. Subjective Patient ID: Danuta Hernandez is a 59 y.o. female who presents for Follow-up (Wide spread pain ). Follow up HTN, fibromyalgia, and anxiety. Patient not doing well today. C/o overall worsening pain since pneumonia. Increased pain in hips, legs, back, shoulders, and neck. Following with chiropractor. Increased sensitivity to touch and light touch causes severe pain. Severe pain having BP checked today. Taking neurontin and mild relief. Checking BP PRN and typically controlled. BP elevated today. Taking medication daily and tolerating without side effects. Anxiety stable. Not as stressed out or overwhelmed. Not as nervous or worry as much. Not as aparicio or irritable. Weight up 6 pounds. Not as active and not exercising. Review of Systems Respiratory: Negative for cough, shortness of breath and wheezing. Cardiovascular: Negative for chest pain and palpitations. Gastrointestinal: Negative for abdominal pain, diarrhea, nausea and vomiting. Genitourinary: Negative for dysuria. Objective Physical Exam Constitutional: General: She is not in acute distress. Appearance: Normal appearance. HENT: Head: Normocephalic. Right Ear: Tympanic membrane normal. Left Ear: Tympanic membrane normal. Eyes: Extraocular Movements: Extraocular movements intact. Pupils: Pupils are equal, round, and reactive to light. Cardiovascular: Rate and Rhythm: Normal rate and regular rhythm. Heart sounds: No murmur heard. No friction rub. No gallop. Pulmonary: Effort: Pulmonary effort is normal. Breath sounds: Normal breath sounds. No wheezing, rhonchi or rales. Abdominal: General: Bowel sounds are normal. There is no distension. Palpations: Abdomen is soft. Tenderness: There is no abdominal tenderness. There is no guarding or rebound. Musculoskeletal: Cervical back: Neck supple. Right lower leg: No edema. Left lower leg: No edema. Neurological: Mental Status: She is alert. Assessment/Plan Problem List Items Addressed This Visit Fibromyalgia syndrome Worsening pain and treat with prednisone. Increase neurontin to BID and add elavil. Relevant Medications gabapentin (Neurontin) 600 MG tablet amitriptyline (Elavil) 25 MG tablet HYDROcodone-acetaminophen ([place]) 5-325 MG tablet predniSONE (Deltasone) 10 MG tablet Class 3 severe obesity due to excess calories without serious comorbidity with body mass index (BMI) of 40.0 to 44.9 in adult ([facility]) Weight loss indicated. Relevant Orders TSH W/REFLEX TO FT4 Essential hypertension, benign ([facility]/HCC) - Primary BP elevated but previously controlled and monitor PRN. Generalized anxiety disorder ([facility]) Symptoms stable and continue prozac. Arthralgia Relevant Orders Sedimentation rate, automated C-reactive protein KRISTIN Rheumatoid factor Uric acid Encounter for long-term (current) use of medications Relevant Orders Basic metabolic panel CBC and differential documented in this encounter [facility] 04-04-2024 Telephone encounter Note Form atting of this note might be different from the original. [facility] 04-04-2024 Miscellaneous Notes Formattin g of this note might be different from the original. documented in this encounter [facility] 03-25-2024 History of Presen t illness Narrative Associated Problem(s): Class 3 severe obesity due to excess calories without serious comorbidity with body mass index (BMI) of 40.0 to 44.9 in adult ([facility]) Weight loss indicated. Associated Problem(s): Acute bronchitis due to other specified organisms Take antibiotics for 7 days. Use prednisone for inflammation. Use sudafed or other decongestants as needed. Use Robitussin or Robitussin-DM for cough. Can use afrin for congestion but no longer than 3 days. Can use Mucinex to bring up phlegm. Use Motrin or Tylenol as needed for fever, aches, or pains. Increase fluid intake and rest. Should improve over next 5-7 days and if no better or worse call for re-evaluation. Images from the original note were not included. Subjective Patient ID: Danuta Hernandez is a 58 y.o. female who presents for Cough and Hip Pain (Right hip down leg). C/o cough, congestion, and rhinorrhea for almost 3 weeks. Afebrile. Severe fatigue and no energy. Frequent cough productive green sputum. Chest tight and SOB. PLUNKETT and sinus pressure in forehead and cheeks along with postnasal drip. Ears plugged and popping. Sore throat and pain to swallow. Mild nausea. Grandson recently sick. Using OTC medication and mild relief. Started cefdinir 1/2 and seemed to help then symptoms worsened. No improvement in symptoms since onset and frequent coughing spells. Sciatica much worse with continued cough. Review of Systems Respiratory: Negative for cough, shortness of breath and wheezing. Cardiovascular: Negative for chest pain and palpitations. Gastrointestinal: Negative for abdominal pain, diarrhea, nausea and vomiting. Genitourinary: Negative for dysuria. Objective Physical Exam Constitutional: General: She is not in acute distress. Appearance: Normal appearance. HENT: Head: Normocephalic. Right Ear: Tympanic membrane normal. Left Ear: Tympanic membrane normal. Eyes: Extraocular Movements: Extraocular movements intact. Pupils: Pupils are equal, round, and reactive to light. Cardiovascular: Rate and Rhythm: Normal rate and regular rhythm. Heart sounds: No murmur heard. No friction rub. No gallop. Pulmonary: Effort: Pulmonary effort is normal. Breath sounds: Normal breath sounds. No wheezing, rhonchi or rales. Abdominal: General: Bowel sounds are normal. There is no distension. Palpations: Abdomen is soft. Tenderness: There is no abdominal tenderness. There is no guarding or rebound. Musculoskeletal: Cervical back: Neck supple. Right lower leg: No edema. Left lower leg: No edema. Neurological: Mental Status: She is alert. Assessment/Plan Problem List Items Addressed This Visit Acute bronchitis due to other specified organisms - Primary Take antibiotics for 7 days. Use prednisone for inflammation. Use sudafed or other decongestants as needed. Use Robitussin or Robitussin-DM for cough. Can use afrin for congestion but no longer than 3 days. Can use Mucinex to bring up phlegm. Use Motrin or Tylenol as needed for fever, aches, or pains. Increase fluid intake and rest. Should improve over next 5-7 days and if no better or worse call for re-evaluation. Relevant Medications levoFLOXacin (Levaquin) 750 MG tablet predniSONE (Deltasone) 50 MG tablet albuterol HFA 90 mcg/act inhaler benzonatate (Tessalon) 200 MG capsule documented in this encounter [facility] 03-13-2024 Telephone encounter Note Form atting of this note might be different from the original. Patient called been sick since merced, cough, sore throat, congestion. Would like something called in. an [facility] 03-13-2024 Miscellaneous Notes Formattin g of this note might be different from the original. Patient called been sick since merced, cough, sore throat, congestion. Would like something called in. an documented in this encounter [facility] 01-07-2024 History of Presen t illness Narrative Associated Problem(s): Class 3 severe obesity without serious comorbidity with body mass index (BMI) of 40.0 to 44.9 in adult ([facility]) Discussed proper diet and regular aerobic exercise. Recommend Weight Watchers and need to limit calories and smaller portions. Need to increase activity and regular aerobic exercise several days a week for 30 minutes at a time. Associated Problem(s): Fibromyalgia syndrome Pain unchanged and use celebrex PRN. Add norco PRN. Associated Problem(s): Essential hypertension, benign (CMS/HCC) BP controlled and monitor PRN. Associated Problem(s): Annual physical exam Reviewed labs. Discussed proper diet and regular aerobic exercise. Need aerobic exercise 5-6 days a week for 30 minutes at a time. Smaller portions and limit total calories. Cologuard normal in July 2023. Tetanus every 10 years. Advised not to smoke. Discussed daily Aspirin therapy. Images from the original note were not included. Subjective Patient ID: Danuta Hernandez is a 58 y.o. female who presents for Follow-up (6m ) and Cough. Presents for annual PE. Patient feels well today. Weight unchanged over the past year. Active at work but no regular exercise or activity. Tries to watch diet and eat healthy. Increased fruits and vegetables. Smaller portions and limits snacking. Tries to limit total daily calories. Reviewed recent labs. Checking BP PRN and typically controlled. BP normal today. Taking medication daily and tolerating without side effects. Pain unchanged. Still pain in hip and seen by ortho. On celebrex and ortho added mobic. Ultram not helping. Review of Systems Respiratory: Negative for cough, shortness of breath and wheezing. Cardiovascular: Negative for chest pain and palpitations. Gastrointestinal: Negative for abdominal pain, diarrhea, nausea and vomiting. Genitourinary: Negative for dysuria. Objective Physical Exam Constitutional: General: She is not in acute distress. Appearance: Normal appearance. HENT: Head: Normocephalic. Right Ear: Tympanic membrane normal. Left Ear: Tympanic membrane normal. Eyes: Extraocular Movements: Extraocular movements intact. Pupils: Pupils are equal, round, and reactive to light. Cardiovascular: Rate and Rhythm: Normal rate and regular rhythm. Heart sounds: No murmur heard. No friction rub. No gallop. Pulmonary: Effort: Pulmonary effort is normal. Breath sounds: Normal breath sounds. No wheezing, rhonchi or rales. Abdominal: General: Bowel sounds are normal. There is no distension. Palpations: Abdomen is soft. Tenderness: There is no abdominal tenderness. There is no guarding or rebound. Musculoskeletal: General: No swelling or tenderness. Cervical back: Neck supple. Right lower leg: No edema. Left lower leg: No edema. Skin: Findings: No erythema or rash. Neurological: General: No focal deficit present. Mental Status: She is alert and oriented to person, place, and time. Cranial Nerves: No cranial nerve deficit. Motor: No weakness. Gait: Gait normal. Assessment/Plan Problem List Items Addressed This Visit Fibromyalgia syndrome Pain unchanged and use celebrex PRN. Add norco PRN. Relevant Medications HYDROcodone-acetaminophen ([place]) 5-325 MG tablet Essential hypertension, benign (CMS/HCC) BP controlled and monitor PRN. Annual physical exam - Primary Reviewed labs. Discussed proper diet and regular aerobic exercise. Need aerobic exercise 5-6 days a week for 30 minutes at a time. Smaller portions and limit total calories. Cologuard normal in July 2023. Tetanus every 10 years. Advised not to smoke. Discussed daily Aspirin therapy. documented in this encounter [facility] 11-13-2023 History of Presen t illness Narrative Encounter Date New Problem Right Hip The patient is a pleasant 58-year-old female presenting today in the office for evaluation of her right hip pain. Patient reports pain in her right hip at this point in time. She reports she has sustained several falls on her knees due to instability and brain related issues. Most of her pain is in the anterior groin region. She notes that she has fractured her arm during a recent fall. She also has limitations on hip flexion and internal rotation at this point in time. She states that the pain is affecting the quality of her life and activities of her daily living. Patient denies any recent injury, fall, fever, chills, numbness or tingling. [facility] Work Phone: [phone]) 673-738011-30-2023 Note Attestation signed by Otto George MD at 02/11/2023 10:09 AM I personally saw and examined the patient on the same date of service as resident/fellow . I discussed the findings and therapeutic plan with the resident/fellow . I agree with the documentation, except for any edits/updates below. Teaching Physician's Revisions: Orthopedic Surgery Subjective 01/02/2023 - ORIF, FRACTURE, WRIST, distal - Left 02/08/2023 Patient is following up for her left wrist ORIF distal radius on 12/29/2022. Patient reports she had some erythema and swelling of her wrist and called and was prescribed 10 days of doxycycline she completed her last dose yesterday. Incision appears to be healing appropriately with mild erythema. 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 No other reported concerns or problems. Patient radiographically has healed her fracture. 01/12/23 Danuta Hernandez is a 57 y.o. female 10 days s/p ORIF, FRACTURE, WRIST, distal - Left. Today she is doing well and has no unexpected complaints. Patient has been weightbearing no more than the weight of a coffee cup left upper extremity. Patient has been immobilized in a short arm splint. Patient has not started physical therapy. Denies fevers, chills and other constitutional symptoms. Denies drainage from incision. Patient History Past Surgical History: Procedure Laterality Date APPENDECTOMY CHOLECYSTECTOMY JOINT REPLACEMENT ORIF WRIST FRACTURE Left 01/02/2023 ORIF, FRACTURE, WRIST, distal TONSILLECTOMY Past Medical History: Diagnosis Date Hypertension Objective Exam: -Splint was removed. Incision clean, dry, and intact and healing appropriately. No drainage or erythema. - Reasonable post-surgical ROM, swelling, and tenderness - Sensation grossly intact distally - Brisk capillary refill -Right wrist flexion 30 degrees - Right wrist extension 45 degrees - Full pronation/supination Imaging X-rays left wrist today: Show well-maintained alignment following hardware fixation, appropriate radial height, volar tilt and radial inclination Assessment/Plan Danuta Hernandez is a 57 y.o. female s/p ORIF, FRACTURE, WRIST, distal - Left (01/02/2023). -Patient has made great progress following her surgery, do not believe she will need any formal therapy as she is regained significant range of motion. Radiographic findings show her fracture has healed and no concerns for any hardware pullout. Patient can follow-up as needed Umberto Barrientos, DO Orthopedic Surgery, PGY1 Ortho Pager [phone] 02/08/23 2:49 PM I am available via [employer] 6a-6p. May contact the on-call resident with any concerns via the Orthopaedic pager at any time. By using the attestations below, the signing clinician agrees that I have read and verify that the documentation has been personally reviewed by me and ensure that the documentation accurately reflects the encounter. GC: I personally saw this patient on the day of the encounter, performed the khan portion(s) of the service and participated in the management and confirm the resident's documentation. Please note there may be an additional personal documentation from me.[facility]11-03-2023 Note Attestation signed by Otto George MD at 01/14/2023 10:14 AM I personally saw and examined the patient on the same date of service as resident/fellow . I discussed the findings and therapeutic plan with the resident/fellow . I agree with the documentation, except for any edits/updates below. Teaching Physician's Revisions: Orthopedic Surgery Subjective 01/02/2023 - ORIF, FRACTURE, WRIST, distal - Left 01/12/23 Danuta Hernandez is a 57 y.o. female 10 days s/p ORIF, FRACTURE, WRIST, distal - Left. Today she is doing well and has no unexpected complaints. Patient has been weightbearing no more than the weight of a coffee cup left upper extremity. Patient has been immobilized in a short arm splint. Patient has not started physical therapy. Denies fevers, chills and other constitutional symptoms. Denies drainage from incision. Patient History Past Surgical History: Procedure Laterality Date APPENDECTOMY CHOLECYSTECTOMY JOINT REPLACEMENT ORIF WRIST FRACTURE Left 01/02/2023 ORIF, FRACTURE, WRIST, distal TONSILLECTOMY Past Medical History: Diagnosis Date Hypertension Objective Exam: -Splint was removed. Incision clean, dry, and intact and healing appropriately. No drainage or erythema. - Reasonable post-surgical ROM, swelling, and tenderness - Sensation grossly intact distally - Brisk capillary refill Imaging None taken today Assessment/Plan Danuta Hernandez is a 57 y.o. female s/p ORIF, FRACTURE, WRIST, distal - Left (01/02/2023). -Discussed the patient's clinical findings in detail and answered all questions. We are very pleased with the patient's progress as she is healing appropriately postoperatively. At this time the patient is allowed to shower but we recommend that she not soak the incision in water. Patient no longer needs immobilization and we provided an Pavan wrap for comfort. We provided a work note with restrictions at no more than the weight of a laptop computer with the left upper extremity. -Follow up in in 4 weeks where she will obtain an x-ray of her left wrist before her appointment Nilson Christianson MD Orthopaedic Surgery PGY-2 01/12/23 11:05 AM By using the attestations below, the signing clinician agrees that I have read and verify that the documentation has been personally reviewed by me and ensure that the documentation accurately reflects the encounter. GC: I personally saw this patient on the day of the encounter, performed the khan portion(s) of the service and participated in the management and confirm the resident's documentation. Please note there may be an additional personal documentation from me.[facility]10-25-2023 NoteSpoke with patient regarding her recent procedure with Dr. George (01/02) and patient states that she is doing good . Patient denies any unusual drainage, major swelling, and/or fever at this time and states that she has been icing and elevating as recommended. Patient was also able to confirm her post-operative appointment with Dr. George on 01/12. I provided my contact information and encouraged the patient to call if any questions/concerns arise in the meantime. [facility]10-24-2023 NotePatient: Danuta Hernandez Procedure Summary Date: 01/02/23 Room / Location: [address] OR Anesthesia Start: 1218 Anesthesia Stop: 1350 Procedure: ORIF, FRACTURE, WRIST, distal (Left: Wrist) Diagnosis: Open fracture of right wrist, initial encounter (Open fracture of right wrist, initial encounter [S62.101B]) Surgeons: Otto George MD Responsible Provider: Mary Duenas MD Anesthesia Type: regional ASA Status: 3 Anesthesia Type: regional [id number] Value Taken Time BP 184/83 01/02/23 1422 Temp 35.5 01/02/23 1422 Pulse 73 01/02/23 1422 Resp 18 01/02/23 1422 SpO2 100 01/02/23 1422 Anesthesia Post Evaluation Patient location during evaluation: PACU Patient participation: complete - patient participated Level of consciousness: awake Pain score: 0 Pain management: adequate Airway patency: patent Cardiovascular status: acceptable Respiratory status: acceptable Patient is hemodynamically stable and is able to be discharged from PACU per anesthesia protocol. No notable events documented.[facility]10-24-2023 Note Peripheral Block Patient location during procedure: pre-op Start time: 01/02/2023 11:54 AM End time: 01/02/2023 12:05 PM Reason for block: primary anesthetic and at surgeon's request Staffing Performed: anesthesiologist Anesthesiologist: Mary Duenas MD Preanesthetic Checklist Completed: patient identified, IV checked, site marked, risks and benefits discussed, surgical consent, monitors and equipment checked, pre-op evaluation and timeout performed Peripheral Block Patient position: supine Prep: ChloraPrep Patient monitoring: continuous pulse ox Block type: axillary Laterality: left Injection technique: single-shot Guidance: ultrasound guided Needle Needle type: short-bevel Needle gauge: 22 G Needle length: 2 in Needle localization: ultrasound guidance Medications Administered bupivacaine HCl (Marcaine) 0.5 % (5 mg/mL) injection - injection 150 mg - 01/02/2023 11:54:00 AM fentaNYL (SUBLIMAZE) IV - intravenous 100 mcg - 01/02/2023 11:54:00 AM midazolam (VERSED) IV - intravenous 2 mg - 01/02/2023 11:54:00 AM Assessment Injection assessment: negative aspiration for heme, no paresthesia on injection, incremental injection and local visualized surrounding nerve on ultrasound Paresthesia pain: none Heart [facility] NotePatient: Danuta Hernandez Procedure Information Date/Time: 01/02/23 1215 Procedure: ORIF, FRACTURE, WRIST, distal (Left: Wrist) - C-arm, Synthes NOTIFIED 12/29 DINA Location: [facility] OR [address] [place] [address] OR Surgeons: Otto George MD Past Medical History: Diagnosis Date ??? Hypertension Relevant Problems No relevant active problems Clinical information reviewed: Tobacco Allergies Meds Med Hx Surg Hx Fam Hx Soc Hx Physical Exam Airway Mallampati: II TM distance: >3 FB Neck ROM: full Cardiovascular - normal exam Rhythm: regular Rate: normal Dental - normal exam Pulmonary - normal exam Abdominal - normal exam (+) obese Anesthesia Plan ASA 3 regional The patient is not a current smoker. Patient was not previously instructed to abstain from smoking on day of procedure. Patient did not smoke on day of procedure. Education provided regarding risk of obstructive sleep apnea. intravenous induction Anesthetic plan and risks discussed with patient. Plan discussed with BUSINESS ACCOUNT LEADER. [facility] Note Attestation signed by Otto George MD at 01/02/2023 9:05 AM I personally saw and examined the patient on the same date of service as resident/fellow . I discussed the findings and therapeutic plan with the resident/fellow . I agree with the documentation, except for any edits/updates below. Teaching Physician's Revisions: Orthopedic Surgery Subjective Follow-up of the Left Wrist (ED follow up ) 12/29/22 Danuta Hernandez is a 57 y.o. year old female presenting for evaluation of left distal radius fracture after a fall sustained on . Radiographs at that time showed a distal radius fracture with apex volar angulation and dorsal comminution. The fracture was well reduced and splinted in the ED in neutral position. Patient denies any new concerns at this time. Patient has noted decrease in her swelling in her fingers. Patient denies any new pains or other injuries. Patient denies any numbness or tingling or fevers. Patient History Past Surgical History: Procedure Laterality Date APPENDECTOMY CHOLECYSTECTOMY JOINT REPLACEMENT TONSILLECTOMY Past Medical History: Diagnosis Date Hypertension Allergies Allergen Reactions Tetanus And Diphther. Tox (Pf) Current Outpatient Medications Medication Instructions amLODIPine (NORVASC) 2.5 mg, oral, 2 times daily RT atorvastatin (Lipitor) 10 mg tablet Take 1 (one) Tablet by mouth at bedtime celecoxib (CeleBREX) 200 mg capsule take 1 capsule by mouth twice a day if needed cholecalciferol, vitamin D3, 50 mcg (2,000 unit) capsule 1 capsule, oral, Daily FLUoxetine (PROZAC) 40 mg, oral, Daily gabapentin (NEURONTIN) 600 mg, oral, Nightly HYDROcodone-acetaminophen ([place]alakekua) 5-325 mg tablet 1 tablet, oral, Every 6 hours PRN ibuprofen 600 mg, oral, Every 6 hours PRN metoprolol tartrate (LOPRESSOR) 50 mg, oral, 2 times daily RT tiZANidine (ZANAFLEX) 8 mg, oral, Nightly traMADol (Ultram) 50 mg tablet take 1 tablet by mouth four times a day if needed Objective General: Body mass index is 44.48 kg/m???. 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 year old female with Open fracture of right wrist, initial encounter Plan: - Plan for OR on Sunday01/02/23 for ORIF Left distal radius - Patient educated on procedure, benefits and risks. Patient is amenable to the procedure and was consented in clinic - Continue Pain control - Patient educated on splint care and NWB LUE - Patient educated on preoperative instructions including no thing by mouth after midnight, arrive 2 hours prior to procedure, keep site clean and dry. Renetta Kinsey MD Orthopaedic Surgery PGY-[address] [facility] 12/29/22 10[facility] Note[facility]thopedic Surgery Procedure Note: Pre-Procedure Diagnosis: closed distal radius fracture Post-Procedure Diagnosis: Reduced closed distal radius Procedure: Close reduction closed distal radius A closed reduction with manipulation is to be performed with fracture site hematoma block. Informed consent was obtained and proper patient and site were identified. The fracture site was identified and confirmed. Planned injection site was marked approximately 1cm proximal to the fracture site on the dorsal aspect of the forearm. Area was thoroughly cleaned and prepped with betadine. The fracture was then injected with 5mL Lidocaine 1% using a 25 needle. Once pain control was adequate the left wrist was reduced with standard reduction technique. A well padded sugar tong splint was placed with the patient being molded into appropriate position. Post reduction/splint X-Rays (AP and Lateral views) left wrist were obtained revealing satisfactory alignment of the left wrist fracture. Patient tolerated the procedure well. Patient was able to AROM 1-5 digits left hand s/p closed reduction. Motor innervation to AIN/PIN/M/U/R n.distriubtion intact. Intact sensation to light touch M/U/R nerve innervations left upper extremity s/p closed reduction. Fingers were pink and warm with cap refill < 2 seconds s/p closed. The patient tolerated the procedure well and there were no immediate apparent complications. Patient was extensively educated on concerning signs and symptoms including pain with passive range of motion, intolerable pain, new numbness/tingling, and increased swelling/redness. Quintin Priest II MD Orthopedic Surgery Resident, PGY-3 [facility] NoteORTHOPEDIC SURGERY CONSULTATION CHIEF COMPLAINT: Left distal radius fracture HPI: Danuta Hernandez is a 57 y.o. qejg-ibhn-uwwdpanp female with complaint of pain in left wrist after a fall. Pain began after she fell earlier this evening, patient sate she had uneven ground and just lost her footing. She has known low vitamin D and is on 2000 units per her PCP. They presented to the [facility] Emergency Department where x-rays were obtained which demonstrated comminuted displaced R distal radius fracture. Had 1 previous fracture on her right shoulder as a child. Otherwise she said she has never had any orthopedic injuries in the last 30 years. Has fibromyalgia and hypertension but is otherwise generally healthy. She denies any additional injuries, she said she did not her head and denies any weakness, numbness or tingling. PMH: Hypertension, fibromyalgia Pertinent Surgical Hx: Noncontributory Pertinent Social Hx: Noncontributory Currently taking any blood thinners: None Personal or family history of bleeding or clotting disorders: None Personal or family history of problems with anesthesia: None Past Medical History: Diagnosis Date Hypertension Past Surgical History: Procedure Laterality Date APPENDECTOMY CHOLECYSTECTOMY JOINT REPLACEMENT TONSILLECTOMY Allergies Allergen Reactions Tetanus And Diphther. Tox (Pf) No current facility-administered medications for this encounter. Current Outpatient Medications: HYDROcodone-acetaminophen (Kealakekua) 5-325 mg tablet, Take 1 tablet by mouth every 6 (six) hours if needed for severe pain (8-10 pain score) for up to 3 days., Disp: 12 tablet, Rfl: 0 ibuprofen 600 mg tablet, Take 1 tablet (600 mg) by mouth every 6 (six) hours if needed for mild pain (1-3 pain score) or moderate pain (4-7 pain score) for up to 10 days., Disp: 40 tablet, Rfl: 0 Social History Socioeconomic History Marital status: Spouse name: Not on file Number of children: Not on file Years of education: Not on file Highest education level: Not on file Occupational History Not on file Tobacco Use Smoking status: Never Smokeless tobacco: Never Vaping Use Vaping Use: Never used Substance and Sexual Activity Alcohol use: Not Currently Drug use: Never Sexual activity: Not on file Other Topics Concern Not on file Social History Narrative Not on file Social Determinants of Health Financial Resource Strain: Not on file Food Insecurity: Not on file Transportation Needs: Not on file Physical Activity: Not on file Stress: Not on file Social Connections: Not on file Intimate Partner Violence: Not on file Housing Stability: Not on file No family history on file. Pertinent review of systems negative except for what is documented in the HPI. Physical exam: Vitals: 12/26/221951 BP: Pulse: Resp: Temp: SpO2: 100% General: No acute distress, comfortable Respiratory: Unlabored breathing with normal rate, no cough Cardiovascular: Warm well perfused extremities Psych: Appropriate mood behavior MSK: LUE - swollen apex volar deformity distal radius, TTP - ROM: not tested at wrist, appropriate, shoulder, elbow, fingers/hand - Compartments of left forearm and hand are soft/compressible - SILT intact in median, ulnar, radial distributions - Motor function intact in median, ulnar, radial, AIN, PIN - 5/5 strength to EPL/FPL/IO - Hand is WWP with BCR x 5, 2+ RP Labs: No results found for: WBC, HGB, HCT, MCV, PLT No results found for: GLU, CALCIUM, NA, K, CO2, CL, BUN, CREATININE No results found for: INR, PROTIME Imaging: Radiographs of the Left distal radius were reviewed and demonstrate apex volar displaced, angulated, comminuted distal radius fracture, no obvious additional fractures, dislocations or acute bony pathology. Post reduction x-rays left distal radius, improved angulation, and reduction L distal radius fracture. No additional acute bony pathology appreciated Post Splint x-rays: personally reviewed demonstrating reduced, comminuted distal radius fracture Assessment: Danuta Hernandez is a 57 y.o.female with Left displaced comminuted distal radius fracture. Plan: -After speaking at length with patient regarding conservative and operative options including risks/benefits/alternatives/indications, she is agreeable to closed reduction and splinting with outpatient follow up with Dr. George. -She will undergo aggressice ice elevation LUE for the next several days -continue vitamin D supplementation, follow up with PCP for DEXA scan -Weight bearing & activity status: NWB LUE -Pain control, ice, and elevation of extremity -Keep splint clean, dry, intact -Pain control, norco, ibuprofen, tylenol. -Patient aware to return to ED with any new onset weakness, numbness, tingling, CP, SOB, pain out of proportion, cold fingers, additional/systemic symptoms This plan was discussed in detail with Dr. Jett (more content not included)... [facility]10-10-2022 NotePROCEDURE: XR FOOT RT MIN 3 VIEWS HISTORY: Pain in right foot ; acute anterior foot pain for 3 weeks COMPARISON: None. FINDINGS: BONES:No fracture, acute abnormality, or significant arthropathy. SOFT TISSUES:No visible soft tissue swelling. EFFUSION:None visible. OTHER: Negative. IMPRESSION: 1. No acute bone abnormality or significant degenerative changes. Electronically authenticated by: YARITZA BOYER Date: 2021-12-19 16:30[facility] note* Clinical Note Date No Information [facility] Work Phone: Discharge summary* Clinical Note Date No Information [facility] Work Phone: Evaluation note* Diagnosis Breast cancer screening by mammogram- Primary Annual physical exam Routine general medical examination at a health care facility Vitamin D deficiency Essential hypertension, benign (CMS/HCC) Essential hypertension, benign Fibromyalgia syndrome Unspecified myalgia and myositis Generalized anxiety disorder (CMS/HCC) Generalized anxiety disorder Acute non-recurrent pansinusitis Annual physical exam- Primary Routine general medical examination at a health care facility Essential hypertension, benign (CMS/HCC) Essential hypertension, benign Fibromyalgia syndrome Unspecified myalgia and myositis [facility] Type Assessment Date No Information [facility] Work Phone: Evaluation note* Diagnosis Breast cancer screening by mammogram- Primary Annual physical exam Routine general medical examination at a health care facility Vitamin D deficiency Essential hypertension, benign (CMS/HCC) Essential hypertension, benign Fibromyalgia syndrome Unspecified myalgia and myositis Generalized anxiety disorder (CMS/HCC) Generalized anxiety disorder Acute non-recurrent pansinusitis Annual physical exam- Primary Routine general medical examination at a health care facility Essential hypertension, benign (CMS/HCC) Essential hypertension, benign Fibromyalgia syndrome Unspecified myalgia and myositis Fibromyalgia syndrome Unspecified myalgia and myositis [facility]* Diagnosis Breast cancer screening by mammogram- Primary Annual physical exam Routine general medical examination at a health care facility Vitamin D deficiency Essential hypertension, benign (CMS/HCC) Essential hypertension, benign Fibromyalgia syndrome Unspecified myalgia and myositis Generalized anxiety disorder (CMS/HCC) Generalized anxiety disorder Acute non-recurrent pansinusitis Annual physical exam- Primary Routine general medical examination at a health care facility Essential hypertension, benign (CMS/HCC) Essential hypertension, benign Fibromyalgia syndrome Unspecified myalgia and myositis Fibromyalgia syndrome Unspecified myalgia and myositis [facility]* Diagnosis Breast cancer screening by mammogram- Primary Annual physical exam Routine general medical examination at a health care facility Vitamin D deficiency Essential hypertension, benign (CMS/HCC) Essential hypertension, benign Fibromyalgia syndrome Unspecified myalgia and myositis Generalized anxiety disorder (CMS/HCC) Generalized anxiety disorder Acute non-recurrent pansinusitis Annual physical exam- Primary Routine general medical examination at a health care facility Essential hypertension, benign (CMS/HCC) Essential hypertension, benign Fibromyalgia syndrome Unspecified myalgia and myositis Acute bronchitis due to other specified organisms- Primary Class 3 severe obesity due to excess calories without serious comorbidity with body mass index (BMI) of 40.0 to 44.9 in adult (CMS/HCC) documented [facility]* Diagnosis Breast cancer screening by mammogram- Primary Annual physical exam Routine general medical examination at a health care facility Vitamin D deficiency Essential hypertension, benign (CMS/HCC) Essential hypertension, benign Fibromyalgia syndrome Unspecified myalgia and myositis Generalized anxiety disorder (CMS/HCC) Generalized anxiety disorder Acute non-recurrent pansinusitis Annual physical exam- Primary Routine general medical examination at a health care facility Essential hypertension, benign (CMS/HCC) Essential hypertension, benign Fibromyalgia syndrome Unspecified myalgia and myositis Acute bronchitis due to other specified organisms- Primary Class 3 severe obesity due to excess calories without serious comorbidity with body mass index (BMI) of 40.0 to 44.9 in adult ([facility]) Fibromyalgia syndrome Unspecified myalgia and myositis [facility]* Diagnosis Breast cancer screening by mammogram- Primary Annual physical exam Routine general medical examination at a health care facility Vitamin D deficiency Essential hypertension, benign (CMS/HCC) Essential hypertension, benign Fibromyalgia syndrome Unspecified myalgia and myositis Generalized anxiety disorder (CMS/HCC) Generalized anxiety disorder Acute non-recurrent pansinusitis Annual physical exam- Primary Routine general medical examination at a health care facility Essential hypertension, benign (CMS/HCC) Essential hypertension, benign Fibromyalgia syndrome Unspecified myalgia and myositis Acute bronchitis due to other specified organisms- Primary Class 3 severe obesity due to excess calories without serious comorbidity with body mass index (BMI) of 40.0 to 44.9 in adult ([facility]) Fibromyalgia syndrome Unspecified myalgia and myositis documented [facility]* Diagnosis Breast cancer screening by mammogram- Primary Annual physical exam Routine general medical examination at a health care facility Vitamin D deficiency Essential hypertension, benign (CMS/HCC) Essential hypertension, benign Fibromyalgia syndrome Unspecified myalgia and myositis Generalized anxiety disorder ([facility]/HCC) Generalized anxiety disorder Acute non-recurrent pansinusitis Annual physical exam- Primary Routine general medical examination at a health care facility Essential hypertension, benign (CMS/HCC) Essential hypertension, benign Fibromyalgia syndrome Unspecified myalgia and myositis Acute bronchitis due to other specified organisms- Primary Class 3 severe obesity due to excess calories without serious comorbidity with body mass index (BMI) of 40.0 to 44.9 in adult ([facility]) Chronic pain syndrome documented in this encounter [facility]* Diagnosis Breast cancer screening by mammogram- Primary Annual physical exam Routine general medical examination at a health care facility Vitamin D deficiency Essential hypertension, benign (CMS/HCC) Essential hypertension, benign Fibromyalgia syndrome Unspecified myalgia and myositis Generalized anxiety disorder (CMS/HCC) Generalized anxiety disorder Acute non-recurrent pansinusitis Annual physical exam- Primary Routine general medical examination at a health care facility Essential hypertension, benign (CMS/HCC) Essential hypertension, benign Fibromyalgia syndrome Unspecified myalgia and myositis Acute bronchitis due to other specified organisms- Primary Class 3 severe obesity due to excess calories without serious comorbidity with body mass index (BMI) of 40.0 to 44.9 in adult ([facility]) Essential hypertension, benign (CMS/HCC)- Primary Essential hypertension, benign Fibromyalgia syndrome Unspecified myalgia and myositis Generalized anxiety disorder (CMS/HCC) Generalized anxiety disorder Arthralgia, unspecified joint Class 3 severe obesity due to excess calories without serious comorbidity with body mass index (BMI) of 40.0 to 44.9 in adult ([facility]) Encounter for long-term (current) use of medications Encounter for long-term (current) use of other medications documented [facility] this encounter [facility] Clinical Note Date No Information [facility] Phone: Instructions* Date Instruction Additional Infor mation No Information [facility] Phone: Progress note* Clinical Note Date No Information [facility] Phone: Reason for referral (narrative)* Reason For Referral No Information [facility] Phone: Summary Purpose Family History Family Member Type Diagnosis Age At Onset Mother Problem (finding) Cancer Brother Problem (finding) Family history of Blood clots Brother Problem (finding) Congenital heart diseas e Father Problem (finding) Congenital heart diseas e Brother Problem (finding) Cancer Advance Directives Directive Yes / No Effective Date File Name No Information Additional Source Comments INFORMATION SOURCE (unrecogn ized section and content) DATE CREATED AUTHOR 08/19/2021 [facility] DATE CREATED AUTHOR AUTHOR'S ORGANIZ ATION [facility]20[facility]2021 [facility] DATE CREATED AUTHOR AUTHOR'S ORGANIZ ATION 03/01/2023 [facility] DATE CREATED AUTHOR AUTHOR'S ORGANIZ ATION 01/09/2024 [facility] DATE CREATED AUTHOR AUTHOR'S ORGANIZ ATION 01/10/2024 [facility] DATE CREATED AUTHOR AUTHOR'S ORGANIZ ATION 03/28/2024 [facility] Care Teams (unrecognized sec tion and content) Historical Site Guide Relationship Specialty Start Date End Date Ken Larry MD [address] [place] [address] PCP - General Family Medicine 07/31/23 Ken Larry MD [address] [place] [phone] PCP - Medical [facility] 09/09/18 03/11/99 Historical Site Guide Relationship Specialty Start Date End Date Ken Larry MD [address] [place] [phone] PCP - General Family Medicine 07/31/23 Ken Larry MD [address] [place] [phone] PCP - Medical [facility] 09/09/18 03/11/99 Name Effective Dates (start - stop) Status Members No Information Historical Site Guide Relationship Specialty Start Date End Date Ken Larry MD [address] [place] [phone] PCP - General Family Medicine 07/31/23 Ken Larry MD [address] [place] [phone] PCP - Medical [facility] 09/09/18 03/11/99 Historical Site Guide Relationship Specialty Start Date End Date Ken Larry MD [address] [place] [phone] PCP - General Family Medicine 07/31/23 Ken Larry MD [address] [place] [address] PCP - Medical [facility] 09/09/18 03/11/99 Historical Site Guide Relationship Specialty Start Date End Date Ken Larry MD [address] [place] [address] PCP - General Family Medicine 07/31/23 Ken Larry MD [address] [place] [address] PCP - Medical [facility] 09/09/18 03/11/99 Historical Site Guide Relationship Specialty Start Date End Date Ken Larry MD [address] [place] [address] PCP - General Family Medicine 07/31/23 Ken Larry MD [address] [place] [address] PCP - Medical [facility] 09/09/18 03/11/99 Historical Site Guide Relationship Specialty Start Date End Date Ken Larry MD [address] [place] [address] PCP - General Family Medicine 07/31/23 Ken Larry MD [address] [place] [address] PCP - Medical [facility] 09/09/18 03/11/99 Historical Site Guide Relationship Specialty Start Date End Date Ken Larry MD [address] [place] [phone] PCP - General Family Medicine 07/31/23 Ken Larry MD [address] [place] [phone] PCP - [facility] 09/09/18 03/11/99 Historical Site Guide Relationship Specialty Start Date End Date Ken Larry MD [address] [place] [phone] PCP - General [facility] 07/31/23 Ken Larry MD [address] [place] [phone] PCP - [facility] 09/09/18 03/11/99 Historical Site Guide Relationship Specialty Start Date End Date Ken Larry MD [address] [place] [phone] PCP - General Family Medicine 07/31/23 Ken Larry MD [address] [place] [phone] PCP - [facility] 09/09/18 03/11/99 Reason for Visit (unrecogniz ed section and content) Reason Comments Follow-up 6m Cough Reason Onset Date Comments Med Refill 02/25/2024 Reason Onset Date Comments Med Refill 03/10/2024 Reason Onset Date Comments Med Refill 03/11/2024 Reason Comments Cough Hip Pain Right hip down leg Reason Onset Date Comments Med Refill 03/25/2024 Reason Onset Date Comments Med Refill 04/04/2024 Reason Onset Date Comments Med Refill 04/14/2024 Reason Comments Follow-up Wide spread pain FOR RECORDS PERTAINING TO PATIENTS WHO ARE OR HAVE BEEN ENROLLED IN A CHEMICAL DEPENDENCY/SUBSTANCEABUSE PROGRAM, SOME INFORMATION MAY BE OMITTED. This clinical summary was aggregated from multiple sources. Caution should be exercised in using it in the provision of clinical care. This summary normalizes information from multiple sources, and as a consequence, information in this document may materially change the coding, format and clinical context of patient data. In addition, data may be omitted in some cases. CLINICAL DECISIONS SHOULD BE BASED ON THE PRIMARY CLINICAL RECORDS. [facility] [facility]. provides no warranty or guarantee of the accuracy or completeness of information in this document.
[2024-04-16 13:24] LABS: Erythrocyte Sedimentation Rate 43 mm/hr (<=30)
[2024-04-16 13:31] LABS: Atypical Lymphocytes Abs Man 0.11; Eosinophils Absolute Manual 0.16 10^3/uL (0.00-0.70); Lymphocytes Absolute Manual 1.56 10^3/uL (1.20-3.80); Segmented Neut Absolute Manual 0.44 10^3/uL (1.4-6.5)
[2024-04-16 13:37] LABS: Anion Gap 8.3; BUN Creatinine Ratio 22.2; Calcium 9.1 mg/dL (8.5-10.1); Carbon Dioxide 33.7 mmol/L (21.0-32.0); Chloride 104 mmol/L (98-107); Estimated GFR (African America >60 (>=60 mL/min/1.73m^2); Estimated GFR (Non-African Ame >60 (>=60 mL/min/1.73m^2); Glucose 111 mg/dL (74-106); Sodium 142 mmol/L (136-145); TSH W/ REFLEX FT4 1.486 uIU/mL (0.358-3.740); Uric Acid 3.4 mg/dL (2.6-6.0)
[2024-04-17 08:10] LABS: Rheumatoid Factor (RF) 10.2 IU/mL (<14.0)
[2024-04-18 18:07] LABS: Antinuclear Antibodies, IFA Negative (.)
== END 2024-04-16 12:49 | disposition home or self-care (01) ==
LOC: LAB 12:52
PROVIDERS: PCP Family Medicine; Visit Provider Family Medicine
DX: M25.50 Pain in unspecified joint (principal); Z79.899 Other long term (current) drug therapy; E66.813 Obesity, class 3; E66.01 Morbid (severe) obesity due to excess calories; Z68.41 Body mass index [BMI] 40.0-44.9, adult
CPT/HCPCS: 36415; 80048; 84443; 84550; 85007; 85027; 85652; 86038; 86140; 86431

== ENCOUNTER 2025-01-29 08:03 | Outpatient (OUT) | payer OTHER, SELFPAY ==
--- OUTSIDE RECORDS SUMMARY | 2024-02-20 05:15 | XMS_ITS ---
Author Organization The [facility] in [place] Address [address] [place] [address] Care Team Providers Care Deicer Inspector Electric Name Role Phone Ken Evangelista MD Primary Care Provider Unavailab Stephane Berkowitz [phone] REASON FOR VISIT LT foot bunionette Encounters Encounter Location Date Provider Diagnosis [facility] (PODIATRY) [address] [place] [address] [place] [address] 02/20/2024 Stephane Palafox Pain in left foot M79.672 Assessments Encounter Date Diagnosis (ICD Code) Assessment Notes Treatment Notes Treatment Clinical Notes Section Notes 02/20/2024 Pain in left foot (ICD-10 - M79. 672) Plan Of Treatment Pending Test Test Name Order Date XR Foot LT (3 views) * 02/20/2024 Progress Notes * Danuta BANEGAS DinaDOB:[birth year] (59 yo F)Acc No.[id number]:02/20/2024 UNLOCKED PROGRESS NOTE Follow Up Patient: Danuta TURK :?Stephane Palafox DPM, MSDOB:1965???Age: 58 Y???Sex:FemaleDate:4Phone:[phone]:[address] [place] [address]Pcp:Ken Evangelista MD Subjective: * Chief Complaints: * 1 . LT foot bunionette. * Medical History: Objective: * Vitals: Assessment: * Assessment: 1.?Pain in left foot - M79.672??? Plan: * Treatment: ?Imaging: XR Foot LT (3 views) * * * Electronic signature of Stephane Palafox DPM on 01/29/2025 at 08:09 AM ESTSign off status: PendingVisit Status:?CANC (Cancelled) * Provider: Arturo Palafox DPM, MS Date: 1 04/22/2023 Generated for Printing/Faxing/eTransmitting on:?01/29/2025 08:09 AM EST
--- OUTSIDE RECORDS SUMMARY | 2024-03-19 05:30 | XMS_ITS ---
Author Organization The [facility] in [place] Address [address] [place] [address] Care Team Providers Care Governor Assembler Hydraulic Name Role Phone Ken Evangelista MD Primary Care Provider Unavailab Stephane Berkowitz Sanjuana [phone] REASON FOR VISIT LT foot bunion Encounters Encounter Location Date Provider Diagnosis [facility] (PODIATRY) [address] [place] [address] [place] [address] 03/19/2024 Stephane Palafox Pain in left foot M79.672 Assessments Encounter Date Diagnosis (ICD Code) Assessment Notes Treatment Notes Treatment Clinical Notes Section Notes 03/19/2024 Pain in left foot (ICD-10 - M79. 672) Plan Of Treatment Pending Test Test Name Order Date XR Foot LT (3 views) * 03/19/2024 Progress Notes * Danuta BANEGAS DinaDOB:[birth year] (59 yo F)Acc No.[id number]:03/19/2024 UNLOCKED PROGRESS NOTE Follow Up Patient: Danuta TURK :?Stephane Palafox DPM, MSDOB:1965???Age: 58 Y???Sex:FemaleDate:03/19/2024Phone:[phone]:[address] [place] [phone]:Ken Evangelista MD Subjective: * Chief Complaints: * 1 . LT foot bunion. * Medical History: Objective: * Vitals: Assessment: * Assessment: 1.?Pain in left foot - M79.672??? Plan: * Treatment: ?Imaging: XR Foot LT (3 views) * * * Electronic signature of Stephane Palafox DPM on 01/29/2025 at 08:09 AM ESTSign off status: PendingVisit Status:?CANC (Cancelled) * Provider: Arturo Palafox DPM, MS Date: 0 03/19/2024 Generated for Printing/Faxing/eTransmitting on:?01/29/2025 08:09 AM EST
--- OUTSIDE RECORDS SUMMARY | 2025-01-29 08:09 | XMS_ITS | Patient Health Record ---
Author Organization [facility] in [place] Address [address] [place] [address] Care Team Providers Care Pattern Hanger Name Role Phone Ken Evangelista MD Primary Care Provider UnavailSepideh Krishna [phone] Allergies Allergen (clinical drug ingredient) Drug/Non Drug Allergy documented on EMR Reaction Allergy Type Onset Date Status tetanus immune globulin Tetanus Immune Globulin Unknown Drug Allergy Active Results Component Value Reference Range Notes XR foot LT min 3V (Not yet r eviewed by provider) Interpretation: Performing Lab: Notes/Report: Source Facility: [place] [address] XRay Report Signed Patient: Flakita Banegas MR#: [id number] : 1965 Acct:[id number] Age/Sex: 58 / F ADM Date: 03/18/24 Loc: RAD Attending Dr: Sepideh Palafox D.P.M. Ordering Physician: Sepideh Palafox D.P.M. Date of Service: 03/18/24 Procedure(s): XR foot LT min 3V Accession Number(s): [id number] cc: Sepideh Palafox D.P.M.; Ken Evangelista M.D. [place] [address] Patient Name: FLAKITA BANEGAS MRN: [id number] date: 1965 Sex: F Assigned Patient Location: RAD Current Patient Location: Accession/Order Number: [id number] Exam Date: 03/18/2024 10:42 Report Date: 03/19/2024 06:49 At the request of: SEPIDEH PALAFOX Procedure: XR foot LT min 3V PROCEDURE: XR foot LT min 3V HISTORY: LEFT FOOT PAIN ; first metatarsophalangeal joint pain COMPARISON: XR foot left 08/30/2022 FINDINGS: BONES:No fracture, acute abnormality, or significant arthropathy. Calcaneal plantar spur. SOFT TISSUES:No visible soft tissue swelling. EFFUSION:None visible. OTHER: Negative. XR/XR foot LT min 3V IMPRESSION: 1. No acute abnormality or significant degenerative joint disease. Electronically authenticated by: CRAIG LEMONS Date: 03/19/2024 06:49 Dictated By: Craig Lemons M.D. 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 Take 2 tablets daily for 3 days. Take 1 tablet daily for 3 days.10/18/2022Not-TakingCeleBREXActiveVitamin D ActiveZanaflexActive Social History Tobacco Use: Social History Observation Description Date Details (start date - stop date) Never Smoker NA - NA Tobacco Use/Smoking Question Answer Notes Patient is a nonsmoker Problems Problem Type SNOMED Code ICD Code Onset Dates Problem Status W/U Status Risk Notes Problem Acquired hammer toe of left foot (1554578377382993) Other hammer toe(s) (acquired), left foot (M20.42) ActiveconfirmedProblemAcquired deformity of left lower leg (disorder) (748549526019135)Other specified acquired deformities of left lower leg (M21.862)ActiveconfirmedProblemPain in left foot (765844727186881)Pain in left foot (M79.672)Activeconfirmed Vital Signs Heart Rate 78 /min 03/18/2024 Vaozwbamicv20.7 degrees Hitrdiragc89/07/6598Dtvcybbv00 %03/18/20247062Aglloy13 in 03/18/2024 Encounters Encounter Location Date Provider Diagnosis [facility] (PODI[facility]) [address] [place] [address] [place] [address] 03/18/2024 Sepideh Romanander Bunionette of left foot M21.622 ; Other hammer toe(s) (acquired), left foot M20.42 ; Other specified disorders of the skin and subcutaneous tissue L98.8 and Pain in left foot M79.672 Assessments Encounter Date Diagnosis (ICD Code) Assessment Notes Treatment Notes Treatment Clinical Notes Section Notes 03/18/2024 Bunionette of left foot (ICD-10 - M21.622) Patient seen and evaluated. Patient education provided. Patient has had worsening pain over the lateral eminence of the fifth metatarsal head and associated with the fifth toe and skin lesion for over a year. I recommend a pumice stone and moisturizer for the porokeratosis which was trimmed without incident to patient satisfaction today. I provided a alternative net toe sleeve for her to try. Wide fitting shoes and OTC pain medicine asneeded. I did discuss potential need for surgical correction and the recovery associated with tailor's bunionectomy and arthroplasty of the fifth toe. Patient would like to consider her options and will call if she would like to proceed or if anything changes. 03/18/2024Other hammer toe(s) (acquired), left foot (ICD-10 - M20.42)03/18/2024 Other specified disorders of the skin and subcutaneous tissue (ICD-10 - L98.8) 03/18/2024Pain in left foot (ICD-10 - M79.672) Plan Of Treatment Pending Test Test Name Order Date XR Foot LT (3 views) * 03/18/2024 XR foot LT min 3V 03/19/2024 Insurance Providers Payer Name Payer Address Payer Phone Subscriber Number Group Number Insured Name Patient Relationship to Insured Coverage Start Date Coverage End Date MMO [address] [place], [place] [id number] Danuta Banegas Ann Self - patient is the insured 3 Medical (General) History Medical History History ICD Code Hypertension I10 Fibromyalgia M79.7 Surgical History Surgery Date(Month/Year) wisdom teeth 1985 gastric sleeve 2016 appendectomy 1973 cholecystectomy 1988 tonsilectomy 1993
--- OUTSIDE RECORDS SUMMARY | 2025-01-29 08:09 | XMS_ITS | Clinical Summary ---
Author Organization [facility] Address [address] [place] [address] Care Team Providers Care Assistant Professor Nurse Education Name Role Phone Unavailable Primary Care Provider Unavailabl e Social History Tobacco UseTypesPacks/DayYears UsedDateSmoking Tobacco: Never Assessed CommentsUnknownSex and Gender InformationValueDate RecordedSex Assigned at Not on fileLegal ZsoLqkypp01/03/2013 2:38 PM ESTGender IdentityNot on fileSexual OrientationNot on file Plan of Treatment Health MaintenanceDue DateLast DoneCommentsHEPATITIS C VIRUS ZNXWHJGTS17/22/1966 JDPELTR56 1965HIV SCREENING ZUHQSVJKBI56/22/1981HEP B VACCINE (1 of 3 - 19+ 3-dose series)1984TDAP (ADULT)1984CERVICAL CANCER SCREENING VVFFQJMMFP98/22/1987LIPID TLDWWSHUX56/22/2006MAMMOGRAM SCREENING DISCUSSION 2005COLORECTAL CANCER SCREENING EUIXHNVXDK42/22/2011PNEUMOCOCCAL VACCINE SERIES (1 of 1 - PCV)2015ZOSTER (SHINGLES) VACCINE (1 of 2)2015 COVID-19 VACCINE (1 - 2024- season)2024INFLUENZA VACCINE (#1)2024
--- OUTSIDE RECORDS SUMMARY | 2025-01-29 08:09 | XMS_ITS | Clinical Summary ---
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 Tox (Pf)12/26/2022 Medications MedicationSigDispense QuantityRefillsLast FilledStart DateEnd DateStatus amLODIPine (Norvasc) 2.5 mg tablet Take 2.5 mg by mouth in the morning and at bedtime.10/26/2022ctive atorvastatin (Lipitor) 10 mg tablet Take 1 (one) Tablet by mouth at pkkbbvb1810/26/2022ctive celecoxib (CeleBREX) 200 mg capsule take 1 capsule by mouth twice a day if kyxjxk2012/27/2022ctive cholecalciferol, vitamin D3, 50 mcg (2,000 unit) capsule Take 1 capsule by mouth in the morning.12/21/2022ctive FLUoxetine (PROzac) 40 mg capsule Take 40 mg by mouth in the morning.12/20/2022ctive gabapentin (Neurontin) 600 mg tablet Take 600 mg by mouth at bedtime.12/20/2022ctive metoprolol tartrate (Lopressor) 50 mg tablet Take 50 mg by mouth in the morning and at bedtime.10/26/2022ctive tiZANidine (Zanaflex) 4 mg tablet Take 8 mg by mouth at bedtime.12/27/2022ctive traMADol (Ultram) 50 mg tablet take 1 tablet by mouth four times a day if bhakmp4108/30/2022ctive docusate sodium (Colace) 100 mg capsule TAKE 1 TABLET BY MOUTH IN THE MORNING AND AT BEDTIME IF NEEDED FOR CONSTIPATION FOR 10 DAYS01/02/2023ctive Active Problems ProblemNoted DateDiagnosed DateOpen fracture of right wrist12/29/2022 Social History Tobacco UseTypesPacks/DayYears UsedDateSmoking Tobacco: NeverSmokeless Tobacco: Never Tobacco Cessation:Counseling Given: Not Answered Alcohol UseStandard Drinks/WeekCommentsNot Currently0 (1 standard drink = 0.6 oz pure alcohol)Humiliation, Afraid, Rape, and Kick questionnaireAnswerDate RecordedWithin the last year, have you been afraid of your partner or ex-partner?No12/29/2022Within the last year, have you been humiliated or emotionally abused in other ways by your partner or ex-partner?No12/29/2022 Within the last year, have you been kicked, hit, slapped, or otherwise physically hurt by your partner or ex-partner?No12/29/2022Within the last year, have you been raped or forced to have any kind of sexual activity by your part ner or ex-partner?No12/29/2022UDIT-CAnswerDate RecordedQ1: How often do you have a drink containing alcohol?Never01/12/2023Q2: How many drinks containing alcohol do you have on a typical day when you are drinking?Patient does not drink01/12/2023Q3: How often do you have six or more drinks on one occasion? Never01/12/2023HQ-2AnswerDate RecordedPatient Health Questionnaire-2 Score0 12/29/2022[facility] [place] [facility] Occup[facility] - Occupational Stress QuestionnaireAnswerDate RecordedDo you feel stress - tense, restless, nervous, or anxious, or unable to sleep at night because yourmind is troubled all the time - these days?Not at all01/12/2023Exercise Vital SignAnswerDate RecordedOn average, how many days per week do you engage in moderate to strenuous exercise (like a brisk walk)?0 days01/12/2023On average, how many minutes do you engage in exercise at this level?0 min01/12/2023UT Safety & EnvironmentAnswerDate RecordedWithin the last year, have you been afraid of your partner or ex-partner?No12/29/2022Within the last year, have you been humiliated or emotionally abused in other ways by your partner or ex-partner?No12/29/2022 Within the last year, have you been kicked, hit, slapped, or otherwise physically hurt by your partner or ex-partner?No12/29/2022Within the last year, have you been raped or forced to have any kind of sexual activity by your part ner or ex-partner?No12/29/2022hysically or Sexually AbusedNot on file12/29/2022 TransportationAnswerDate RecordedIn the past 12 months, has lack of transportation kept you from medical appointments or from getting medications?No 01/12/2023In the past 12 months, has lack of transportation kept you from meetings, work, or from getting things needed for daily living?No01/12/2023 Housing Stability Vital SignAnswerDate RecordedIn the last 12 months, was there a time when you were not able to pay the mortgage or rent on time?No01/12/2023 Number of Places Lived in the Last YearNot on file01/12/2023In the last 12 months, was there a time when you did not have a steady place to sleep or slept in [facility] (including now)?No01/12/2023Hunger Vital SignAnswerDate Recorded Within the past 12 months, you worried that your food would run out before you got the money to buymore.Never true01/12/2023Within the past 12 months, the food you bought just didn't last and you didn't have money to get more.Never true 01/12/2023CommentsNoSex and Gender InformationValueDate RecordedSex Assigned at BirthNot on fileLegal SjvEfhrtq80/17/2023 7:17 PM EDTGender Identity Not on fileSexual OrientationNot on file Last Filed Vital Signs Vital SignReadingTime TakenCommentsBlood Sglnqyys265/8201/02/2023 2:15 PM EDT Bokdh8431 2:15 PM OGVNkbxxipkjoc06.2 ??C (97.2 ??F)01/02/2023 2:15 PM EDTRespiratory Waaw8680/ 2:15 PM EDTOxygen Upewjekkri684%01/02/2023 2:15 PM EDTInhaled Oxygen Concentration--Guiopi231 kg (295 lb)02/08/2023 2:16 PM EST Subnvk299.8 cm (5' 10 )02/08/2023 2:16 PM ESTBody Mass Index42.33104/10/2022 2:16 PM EST Plan of Treatment Health MaintenanceDue DateLast DoneCommentsCT Bopucjkjhluw61/22/1966Colonoscopy 1965Colorectal Cancer Nlmcbhhvs10/22/1966FIT-DNA1965FIT1965 FOBT1965 0858Oxthfdjodrcwn91/22/1966Depression Dhnjuuoyx39/22/1978Hepatitis B Vaccines (1 of 3 - 19+ 3-dose series)1984Pap Smear1986Adult Tetanus 1987Cervical Cancer Bjpsgaiqs51/22/1996HPV/Jadfmw9604/02/1995Mammogram 2005Zoster Vaccines (1 of 2)2015COVID-19 Vaccine ( season)509/, 11/10/2020Influenza Vaccine (#1)2024 12/12/2018, 12/19/2017, 12/20/2015, Additional history existsPneumococcal Vaccine: Pediatrics (0 to 5 Years) and At-Risk Patients (6 to 64 Years)Aged Out 11/10/2013No longer eligible based on patient's age to complete this topicHIB VaccinesAged OutNo longer eligible based on patient's age to complete this topic HPV VaccinesAged OutNo longer eligible based on patient's age to complete this topicIPV VaccinesAged OutNo longer eligible based on patient's age to complete this topicMeningococcal B VaccineAged OutNo longer eligible based on patient's age to complete this topicMeningococcal VaccineAged OutNo longer eligible based on patient's age to complete this topicRotavirus VaccinesAged OutNo longer eligible based on patient's age to complete this topic Medical Devices ImplantedTypeAreaManufacturerDevice IdentifierShelf Expiration DateModel / Serial / LotPlate,Dstl-Radus,2.4m,6h/3h,Lt - [id number] Implanted:Qty: 1 on 01/02/2023 [facility] WristJOHNSON/JAMES ORTHO02.111.631 / / Screw,Locking,2.4m,16m,Star - [id number] Implanted:Qty: 1 on 01/02/2023 [facility] Otto [facility]: WristJOHNSON/JAMES ORTHO02.210.116 / / Screw,Locking,2.4m,18m,Star - [id number] Implanted:Qty: 2 on 01/02/2023 by Otto George [facility]: WristJOHNSON/JAMES ORTHO02.210.118 / / Screw,Locking,2.4m,20m,Star - [id number] Implanted:Qty: 1 on 01/02/2023 by Otto George [facility]: WristJOHNSON/JAMES ORTHO02.210.120 / / Screw,Cortex,2.7m,T8,12m - [id number] Implanted:Qty: 2 on 01/02/2023 by Otto George [facility]: WristJOHNSON/JAMES [id number] / / Screw,Cortex,2.7m,T8,14m - [id number] Implanted:Qty: 1 on 01/02/2023 by Otto George [facility]Left: WristJOHNSON/JAMES [id number] / / Insurance Care Teams Team MemberRelationshipSpecialtyStart DateEnd Date Ken Evangelista MD [address] [place] [address] PCP - Ipvckly34/17/23
--- OUTSIDE RECORDS SUMMARY | 2025-01-29 08:14 | XMS_ITS | CCD ---
Author Organization [facility] [place] CliniSynv Care Team Providers Care Sprigger Name Role Phone DR KEN LARRY Admitting Unavailable NADERER, DR KEN Weiner Attending Unavailable NADERER, DR KEN Weiner Primary Care Unavailable ZIEBER, DR YARITZA White Consulting Unavailable NADERER, DR KEN Weiner Consulting Unavailable GIANNI, OTTO Referring Unavailable GIANNI, OTTO Referring Unavailable GIANNI, OTTO Referring Unavailable GIANNI, OTTO Referring Unavailable RATNA, NASHEED Referring Unavailable GIANNI, OTTO Attending Unavailable GIANNI, OTTO Admitting Unavailable GIANNI, OTTO Attending Unavailable RATNA, AHMETEED Attending Unavailable GIANNI, OTTO Attending Unavailable GIANNI, OTTO Attending Unavailable Ken Larry MD Primary Care Provider Ken Larry MD Unavailable Ayanna Watts DO Unavailable Unavailable Daria GOFF, Ayanna Unavailable Unavailable Daria GOFF, Ayanna Unavailable Unavailable Daria GOFF, Ayanna Unavailable Unavailable Ken Larry MD Primary Care Provider Janet Shetty APRN Emergency Provider Ayanna Watts Attending Unavailable Ayanna Watts Referring Unavailable Ken Larry Primary Care Unavailable Joel Rhoades Jr Attending Unavailable Ayanna Watts Referring Unavailable Ken Larry Primary Care Unavailable Ayanna Watts Attending Unavailable Ayanna Watts Referring Unavailable Ken Larry Primary Care Unavailable KEN LARRY Attending Unavailable KEN LARRY Attending Unavailable KEN LARRY Attending Unavailable HAZEL TREJO Attending Unavailable KOLKARIN, AYANNA Referring Unavailable BETSY BLUE Attending Unavailable DARIA, AYANNA Referring Unavailable CIRILO KAPLAN Attending Unavailable DARIA, AYANNA Referring Unavailable CIRILO KAPLAN Attending Unavailable DARIA, AYANNA Referring Unavailable CIRILO KAPLAN Attending Unavailable KOLICH, AYANNA Referring Unavailable CIRILO KAPLAN Attending Unavailable KOLICH, AYANNA Referring Unavailable ROSAURA, CIRILO Ryan Attending Unavailable KOLICH, AYANNA Referring Unavailable BLUE, BETSY Attending Unavailable KOLICH, AYANNA Referring Unavailable NADERER, KEN Attending Unavailable BLUE, BETSY Attending Unavailable KOLICH, AYANNA Referring Unavailable BLUE, BETSY Attending Unavailable KOLICH, AYANNA Referring Unavailable NADERER, KEN Attending Unavailable NADERER, KEN Attending Unavailable BLUE, BETSY Attending Unavailable KOLICH, AYANNA Referring Unavailable YULISSA GARCIA Attending Unavailable KOLICH, AYANNA Referring Unavailable HAZEL TREJO Attending Unavailable KOLICH, AYANNA Referring Unavailable BLUE, BETSY Attending Unavailable KOLICH, AYANNA Referring Unavailable BLUE, BETSY Attending Unavailable KOLICH, AYANNA Referring Unavailable BLUE, BETSY Attending Unavailable KOLICH, AYANNA Referring Unavailable NADERER, KEN Attending Unavailable Kolich, Ayanna Attending Unavailable Kolich, Ayanna Referring Unavailable Naderer, Ken A Primary Care Unavailable Kolich, Ayanna Attending Unavailable Kolich, Ayanna Referring Unavailable Naderer, Ken A Primary Care Unavailable Kolich, Ayanna Attending Unavailable Kolich, Ayanna Referring Unavailable Naderer, Ken A Primary Care Unavailable Joel Rhoades Jr Attending Unavailable Kolich, Ayanna Referring Unavailable Naderer, Ken A Primary Care Unavailable Kolich, Ayanna Referring Unavailable Naderer, Ken A Primary Care Unavailable Sloane Mari Attending Unav ailable Kolich, Ayanna Attending Unavailable Kolich, Ayanna Referring Unavailable Naderer, Ken A Primary Care Unavailable Kolich, Ayanna Attending Unavailable Kolich, Ayanna Referring Unavailable Naderer, Ekn A Primary Care Unavailable Kolich, Ayanna Attending Unavailable Kolich, Ayanna Referring Unavailable Naderer, Ken A Primary Care Unavailable Kolich, Ayanna Attending Unavailable Kolich, Ayanna Referring Unavailable Naderer, Ken A Primary Care Unavailable Ken Larry MD Primary Care Provider Manolo Gonzalez MD Attending Provider Janet Shetty Attending Unavailable Janet Shetty Admitting Unavailable Ken Larry Primary Care Unavailable Ken Larry Primary Care Unavailable Manolo Gonzalez II Attending UnavailManolo Garibay II Admitting UnavailKen Wiseman MD Primary Care Provider Ken Larry MD Unavailable Ken Larry MD Primary Care Provider [phone] Manolo Gonzalez MD Attending Provider Ken Larry MD Attending Provider Allergies Allergy ClassificationReported Allergen(s)Allergy TypeDate of OnsetReaction(s) Facility (1 source)TETANUS AND DIPHTHER. TOX (PF); Translations: [TETANUS AND DIPHTHER. TOX (PF)]Propensity to adverse reactions to drug (disorder)[id number] (20 sources)Tetanus vaccineDrug [id number] Healthcare (5 sources)Tetanus Vaccines and Toxoid; Translations: [Tetanus Vaccines and Toxoid]propensity to adverse reactions to [id number] [place] (1 source)Tetanus Toxoid-Containing VaccinesDrug Afjhhik82-36-8082OqoxlmwPFFD Healthcare Medications Current Medications MedicationDrug Class(es)DatesSig (Normalized)Sig (Original)acetaminophen 325 mg / HYDROcodone bitartrate 5 mg oral tablet (20 sources)Opioid AgonistStart: 11-14-2024 End: 92-86-2843ftrr 1 tablet by mouth every six hours as needed for pain Hydrocodone-Acetaminophen 5-325 mg tablet Active 1 TAB PO Every 6 hours as needed for pain 60 15 0 January 05, 2025 Degenerative lumbar spinal stenosis Spinal stenosis, lumbar region without neurogenic claudication Complies with drug therapyStart: 10-20-2024 End: 13-26-6871snzk 1 tablet by mouth four times daily as needed for pain HYDROcodone-acetaminophen ([place]) 5-325 MG tablet Indications: Degenerative lumbar spinal stenosis Take 1 tablet by mouth 4 (four) times a day as needed for severe pain for up to 15 days 60 tablet 10/20/2024 11/04/2024 ActiveStart: 09-23-2024 End: 54-98-1704oefi 1 tablet by mouth four times daily as needed for pain HYDROcodone-acetaminophen ([place]) 5-325 MG tablet Indications: Degenerative lumbar spinal stenosis Take 1 tablet by mouth 4 (four) times a day as needed for severe pain for up to 15 days 60 tablet 09/23/2024 10/08/2024 ActiveStart: 08-28-2024 End: 58-25-2717lgug 1 tablet by mouth four times daily as needed for pain HYDROcodone-acetaminophen ([place]) 5-325 MG tablet Indications: Degenerative lumbar spinal stenosis Take 1 tablet by mouth 4 (four) times a day as needed for severe pain for up to 15 days 60 tablet 08/28/2024 09/12/2024 ActiveStart: 08-05-2024 End: 14-29-8897hycy 1 tablet by mouth four times daily as needed for pain HYDROcodone-acetaminophen ([place]) 5-325 MG tablet Indications: Fibromyalgia syndrome Take 1 tablet by mouth 4 (four) times a day as needed for severe pain for up to 15 days 60 tablet 08/05/2024 08/20/2024 ActiveStart: 07-08-2024 End: 08-47-9377aggx 1 tablet by mouth four times daily as needed for pain HYDROcodone-acetaminophen ([place]) 5-325 MG tablet Indications: Fibromyalgia syndrome Take 1 tablet by mouth 4 (four) times a day as needed for severe pain for up to 15 days 60 tablet 07/08/2024 07/23/2024 ActiveStart: 06-09-2024 End: 09-99-4873owht 1 tablet by mouth four times daily as needed for pain HYDROcodone-acetaminophen ([place]) 5-325 MG tablet Indications: Fibromyalgia syndrome Take 1 tablet by mouth 4 (four) times a day as needed for severe pain for up to 15 days 60 tablet 06/09/2024 06/24/2024 ActiveStart: 03-10-2024 End: 95-44-3309epyp 1 tablet by mouth four times daily as needed for pain HYDROcodone-acetaminophen ([place]) 5-325 MG tablet Indications: Fibromyalgia syndrome Take 1 tablet by mouth 4 (four) times a day as needed for severe pain for up to 15 days 60 tablet 05/05/2024 05/20/2024 ActiveStart: 01-07-2024 End: 40-54-9637ihlu 1 tablet by mouth four times daily as needed for pain HYDROcodone-acetaminophen ([place]) 5-325 MG tablet Indications: Fibromyalgia syndrome Take 1 tablet by mouth 4 (four) times a day as needed for severe pain for up to 7 days 28 tablet 01/07/2024 01/14/2024 ActiveStart: 07-15-2020 End: 66-44-2368Jnfuxrelqoq-Acetaminophen 5-325 mg tablet Discontinued July 14, 2020 11:00pm July 15, 2020 1:32pmamitriptyline hydrochloride 25 mg oral tablet (10 sources)Tricyclic AntidepressantStart: 04-16-2024 End: 81-32-0732jhyi 1 tablet by mouth at bedtimeamitriptyline (Elavil) 25 MG tablet Indications: Fibromyalgia syndrome Take 1 tablet (25 mg) by mouth at bedtime 30 tablet 3 04/16/2024 07/08/2024 DiscontinuedamLODIPine 5 mg oral tablet (20 sources)Dihydropyridine Calcium Channel BlockerStart: 62-67-9642dexw 1 tablet by mouth once dailyAmlodipine 5 mg tablet Active 5 MG PO Daily 08 08January 12, 2025 9:14am Complies with drug therapyStart: 01-08-2025 End: 59-96-0380brfj 1 tablet by mouth once dailyAmlodipine 2.5 mg tablet Discontinued 2.5 MG PO Daily January 08, 2025 9:51am January 12, 2025 9:15am Start: 10-13-2024 End: 03-20-8036wvtl 1 tablet by mouth once dailyamLODIPine (Norvasc) 2.5 MG tablet Indications: Essential hypertension, benign Take 1 tablet (2.5 mg) by mouth Daily 90 tablet 3 10/20/2024 ActiveStart: 07-15-2020 End: 28-13-6585pmws 1 tablet by mouth twice dailyAmlodipine 2.5 mg tablet Discontinued 2.5 MG PO Twice daily July 14, 2020 11:00pm January 08, 2025 9:52amatorvastatin 10 mg oral tablet (20 sources)HMG-CoA Reductase InhibitorStart: 07-15-2020 End: 43-76-5983klzf 1 tablet by mouth once daily at bedtimeAtorvastatin 10 mg tablet Active 10 MG PO Daily at bedtime July 14, 2020 11:00pm Complies with drug therapycefdinir 300 mg oral capsule (2 sources)Cephalosporin AntibacterialStart: 03-13-2024 End: 00-70-0630mozk 1 capsule by mouth in the morningcefdinir (Omnicef) 300 MG capsule Indications: Upper respiratory tract infection, unspecified type Take 1 capsule (300 mg) by mouth in the morning and 1 capsule (300 mg) before bedtime. Do all this for 10 days. 20 capsule 03/13/2024 03/25/2024 Discontinuedcelecoxib 200 mg oral capsule (20 sources)Nonsteroidal Anti-inflammatory DrugStart: 96-86-9318gpuo 1 capsule by mouth twice daily as needed for painCelecoxib 200 mg capsule Active 200 MG PO Twice daily as needed for pain January 07, 2025 11:00pmComplies with drug therapyStart: 08-86-9560qaes 1 capsule by mouth twice daily as needed for pain celecoxib (CeleBREX) 200 MG capsule Indications: Chronic pain syndrome Take 1 capsule (200 mg) by mouth 2 (two) times a day as needed for mild pain or moderate pain 180 capsule 3 08/21/2024 ActiveStart: 04-14-2024 End: 72-74-0990rxat 1 capsule by mouth twice daily as needed for paincelecoxib (CeleBREX) 200 MG capsule Indications: Chronic pain syndrome Take 1 capsule (200 mg) by mouth 2 (two) times a day as needed for mild pain or moderate pain 180 capsule 3 04/14/2024 07/08/2024 DiscontinuedStart: 11-27-2023 End: 02-21-5816bzfo 1 capsule by mouth once dailycelecoxib (CeleBREX) 200 MG capsule Indications: Chronic pain syndrome Take 1 capsule (200 mg) by mouth Daily 180 capsule 1 11/27/2023 04/14/2024 Discontinued (Reorder)FLUoxetine 40 mg oral capsule (20 sources)Serotonin Reuptake InhibitorStart: 30-80-5522ohdj 1 capsule by mouth once daily in the morningFluoxetine 40 mg capsule Active 40 MG PO Every morning January 07, 2025 11:00pm Complies with drug therapyStart: 10-13-2024 End: 77-87-5778jlav 1 capsule by mouth in the morningFLUoxetine (PROzac) 40 MG capsule Indications: Generalized anxiety disorder Take 1 capsule (40 mg) by mouth in the morning. 90 capsule 3 10/20/2024 ActiveStart: 05-21-2023 End: 52-55-8230anve 1 capsule by mouth once daily in the morningFLUoxetine (PROzac) 40 MG capsule Indications: Generalized anxiety disorder TAKE 1 CAPSULE BY MOUTHEVERY MORNING 30 capsule 6 04/22/2024 ActiveStart: 07-15-2020 End: 80-50-6459kphh 1 capsule by mouth once daily at bedtimeFluoxetine 20 mg capsule Discontinued 20 MG PO Daily at bedtime July 14, 2020 11:00pm December 9:27amgabapentin 600 mg oral tablet (20 sources)Anti-epileptic AgentStart: 05-13-2024 End: 21-66-0039qqyo 1 tablet by mouth at bedtimegabapentin (Neurontin) 600 MG tablet Indications: Fibromyalgia syndrome TAKE 1 TABLET BY MOUTH AT BEDTIME 90 tablet 1 05/13/2024 07/08/2024 DiscontinuedStart: 08-20-2023 End: 43-68-9037puzz 1 tablet by mouth in the morninggabapentin (Neurontin) 600 MG tablet Indications: Fibromyalgia syndrome Take 1 tablet (600 mg) by mouth in the morning and 1 tablet (600 mg) before bedtime. 180 tablet 2 04/16/2024 Active Start: 07-15-2020 End: 63-95-3492foep 1 capsule by mouth once daily at bedtimeGabapentin 300 mg capsule Discontinued 300 MG PO Daily at bedtime July 14, 2020 11:00pm January 08, 2025 9:29amlevoFLOXacin 750 mg oral tablet (3 sources)Quinolone AntimicrobialStart: 03-25-2024 End: 68-16-0256zwnf 1 tablet by mouth once dailylevoFLOXacin (Levaquin) 750 MG tablet Indications: Acute bronchitis due to other specified organisms Take 1 tablet (750 mg) by mouth Daily for 7 days 7 tablet 03/25/2024 04/01/2024 Active lidocaine 0.04 mg/mg medicated patch (4 sources)Antiarrhythmic, Amide Local AnestheticStart: 78-76-2739tgyae 1 dose topically once daily as needed for painLidocaine 4 % adhesive patch,medicated Active 1 PATCH TOPICAL Daily as needed for pain 15 0 May 03, 2024 12:00am Complies with drug therapymeloxicam 15 mg oral tablet (4 sources)Nonsteroidal Anti-inflammatory DrugStart: 06-39-2694dzes 1 tablet by mouth once dailymeloxicam 15 mg tablet take 1 tablet by oral route daily - Activemetoprolol tartrate 50 mg oral tablet (20 sources)beta-Adrenergic BlockerStart: 07-15-2020 End: 23-06-2327ytsp 1 tablet by mouth twice dailyMetoprolol Tartrate 50 mg tablet Active 50 MG PO Twice daily July 14, 2020 11:00pm Complies with drug therapypredniSONE 50 mg oral tablet (14 sources)Start: 08-28-2024 End: 47-47-0039yoqp 1 tablet by mouth once dailypredniSONE (Deltasone) 50 MG tablet Indications: Degenerative lumbar spinal stenosis Take 1 tablet (50 mg) by mouth Daily for 6 days 6 tablet 08/28/2024 09/03/2024 ActiveStart: 04-16-2024 End: 35-37-6369gpdi 6 tablets by mouth once daily, then take 4 tablets by mouth once daily, then take 2 tablets bymouth once daily, then take 1 tablet by mouth once dailypredniSONE (Deltasone) 10 MG tablet Indications: Fibromyalgia syndrome 6 PO daily x 3 days, 4 PO daily x 3 days, 2 PO daily x 3 days, 1 PO daily x 3 days 39 tablet 04/16/2024 05/12/2024 DiscontinuedStart: 03-25-2024 End: 07-11-5486dmhd 1 tablet by mouth once dailypredniSONE (Deltasone) 50 MG tablet Indications: Acute bronchitis due to other specified organisms Take 1 tablet (50 mg) by mouth Daily for 6 days 6 tablet 03/25/2024 03/31/2024 Active Completed/Discontinued Medications MedicationDrug Class(es)DatesSig (Normalized)Sig (Original)[id number] 200 actuat albuterol 0.09 mg/actuat metered dose inhaler (20 sources)beta2-Adrenergic AgonistStart: 03-25-2024 End: 74-36-7111icsd 2 puff(s) by inhalation every four hours for wheezing albuterol HFA 90 mcg/act inhaler Indications: Acute bronchitis due to other specified organisms Inhale 2 puffs every 4 (four) hours if needed for shortness of breath or wheezing 18 g 2 03/25/2024 08/28/2024 Discontinuedbenzonatate 200 mg oral capsule (20 sources)Non-narcotic AntitussiveStart: 03-25-2024 End: 08-90-6020mdpz 1 capsule by mouth three times daily as needed for cough benzonatate (Tessalon) 200 MG capsule Indications: Acute bronchitis due to other specified organisms Take 1 capsule (200 mg) by mouth 3 (three) times a day as needed for cough Do not crush or chew. 20 capsule 1 03/25/2024 08/28/2024 Discontinuedcholecalciferol 0.05 mg oral capsule (20 sources)Vitamin DStart: 07-15-2020 End: 83-86-8451qsni 1 capsule by mouth once daily in the morningCholecalciferol (Vitamin D3) (Vitamin D3) 50 mcg (2,000 unit) capsule Discontinued 50 MCG PO Every morning July 14, 2020 11:00pm January 08, 2025 9:51amibuprofen 800 mg oral tablet (7 sources)Nonsteroidal Anti-inflammatory DrugStart: 10-03-2023 End: 85-56-8754euuh 1 tablet by mouth every eight hoursibuprofen 800 MG tablet Indications: Fibromyalgia syndrome Take 1 tablet (800 mg) by mouth every 8 ( eight) hours 90 tablet 5 10/03/2023 01/07/2024 DiscontinuedStart: 07-15-2020 End: 39-51-2804jgtn 1 tablet by mouth three times daily as needed for pain Ibuprofen 800 mg Tablet Discontinued 800 MG PO Three times daily as needed for Pain July 14, 2020 11:00pm May 03, 2024 8:40pmnabumetone 750 mg oral tablet (7 sources)Nonsteroidal Anti-inflammatory DrugStart: 05-03-2024 End: 68-86-5339poch 1 tablet by mouth twice dailyNabumetone 750 mg tablet Discontinued 750 MG PO Twice daily 10 0 May 03, 2024 12:00am December 05, 2024 7:46am24 hr oxybutynin chloride 10 mg extended release oral tablet (4 sources)Cholinergic Muscarinic AntagonistStart: 07-15-2020 End: 69-77-4177cdas 1 tablet by mouth once daily at bedtimeOxybutynin Chloride 10 mg tablet extended release 24hr Discontinued 10 MG PO Daily at bedtime July 11:00pm December 05, 2024 7:47amtiZANidine 4 mg oral tablet (20 sources)Central alpha-2 Adrenergic AgonistStart: 05-03-2024 End: 90-13-4649smqf 1 tablet by mouth three times daily as neededTizanidine (Zanaflex) 4 mg tablet Discontinued 4 MG PO Three times daily as needed for muscle spasticity 9 0 May 03, 2024 12:00am November 20, 2024 7:03am Start: 07-15-2020 End: 81-66-5390Rktdjowhsc (Zanaflex) 4 mg tablet Active 8 MG PO Daily at bedtime as needed for muscle spasticity 60 30 0 December 25, 2024 8:32am Complies with drug therapytraMADol hydrochloride 50 mg oral tablet (4 sources)Opioid AgonistStart: 07-23-2020 End: 13-80-8852auoy 1 tablet by mouth every four to six hours as needed for pain Tramadol 50 mg tablet Discontinued 50 MG PO EVERY 4-6 HOURS as needed for pain 20 7 0 July 22, 2020 11:00pm December 05, 2024 7:47am Postoperative pain Other acute postprocedural pain Problems Active Problems Problem ClassificationProblemDateDocumented DateEpisodic/ChronicAnxiety disorders (20 sources)Generalized anxiety disorder; Translations: [Generalized anxiety disorder]Onset: 145661-63-9690RabigjuFynibsogbl and other anemia (20 sources)Iron deficiency anemia; Translations: [Iron deficiency anemia, unspecified]Onset: 267185-93-2339XhylqdpxQntsyhcvc of lipid metabolism (20 sources)Dyslipidemia; Translations: [Hyperlipidemia, unspecified]Onset: 665052-35-2843UfahmxvM Codes: Fall (2 sources)Unspecified fall, initial encounter; Translations: [Unspecified fall, initial encounter]Onset: 75-41-5278NupdkcbqHvwllcwra hypertension (20 sources)Benign essential hypertension; Translations: [Essential (primary) hypertension]Onset: 709510-06-9364NplxnrmDmhblgcg of upper limb (2 sources)Fracture of unspecified carpal bone, right wrist, initial encounter for open fracture; Translations: [Fracture of unspecified carpal bone, right wrist, initial encounter for open fracture]Onset: 16-07-1818MzbjjkpiTdtfqwxd of upper limb (4 sources)Other extraarticular fracture of lower end of left radius, initial encounter for closed fracture; Translations: [Fracture of unspecified carpal bone, left wrist, initial encounter for closed fracture]Onset: 12-26-2022 EpisodicGenitourinary symptoms and ill-defined conditions (20 sources)Genuine stress incontinence; Translations: [Stress incontinence (female) (male)]Onset: 960907-44-7542JoaemngFvqavykqieltv (20 sources)Lymphoid hyperplasia; Translations: [Enlarged lymph nodes, unspecified]Onset: 831500-96-4908YgeuaytsOrdmglk and fatigue (20 sources)Fatigue; Translations: [Chronic fatigue, unspecified]Onset: 537916-70-5335HsumnqjFznvlkfjjb disorders (20 sources)Atrophic vaginitis; Translations: [Postmenopausal atrophic vaginitis]Onset: 338602-69-5494YxfpxceNebcptppfrc deficiencies (20 sources)Vitamin D deficiency; Translations: [Vitamin D deficiency, unspecified]Onset: 522825-45-9709IvjjfrlBwpiyonoimiigu (20 sources)Unilateral primary osteoarthritis, right hip; Translations: [Osteoarthritis of bilateral hip joints]Onset: 824907-73-4714HyvyzygZfcto circulatory disease (4 sources)H/O: hypertension; Translations: [Personal history of other diseases of the circulatory system]86-68-9166YnzycjyzQobdm connective tissue disease (20 sources)Fibromyalgia; Translations: [Fibromyalgia]Onset: 02-27-2023 77-46-3905ZwmxfddoXvweb connective tissue disease (20 sources)Pain in right foot; Translations: [Pain in right foot]Onset: 632407-12-1523RxlonmgwBikyy nervous system disorders (20 sources)Chronic pain syndrome; Translations: [Chronic pain syndrome]Onset: 147620-64-4891XtmjiakQsbsz nervous system disorders (4 sources)Postoperative pain ; Translations: [Other acute postprocedural pain] 45-42-9759PouutzbcDxvfh non-traumatic joint disorders (20 sources)Pain in right knee; Translations: [Pain in joint, lower leg]Onset: 058719-95-5219NiqxunffQgdqk non-traumatic joint disorders (10 sources)Pain in right hip; Translations: [Pain in right hip]Onset: 442682-48-2564RrvekfvwMhglf non-traumatic joint disorders (20 sources)Joint pain; Translations: [Pain in unspecified joint]Onset: 615712-42-4452NshjxvdqRltey non-traumatic joint disorders (20 sources)Arthropathy of right hip joint; Translations: [Other specified joint disorders, right hip]Onset: 324205-02-8998NbxutikjUmitg non-traumatic joint disorders (20 sources)Pain in right hip joint; Translations: [Pain in right hip]Onset: 463966-54-0096OeoqfhtdFjtuh non-traumatic joint disorders (20 sources)Pain in wrist; Translations: [Pain in left wrist]Onset: 08-28-2024 24-69-0646OqvkeqzzGlnur nutritional; endocrine; and metabolic disorders (1 source)Morbid obesity; Translations: [Morbid (severe) obesity due to excess calories]Onset: 857139-17-3800TqehkfmActaq nutritional; endocrine; and metabolic disorders (20 sources)Severe obesity; Translations: [Class 3 severe obesity without serious comorbidity with body mass index (BMI) of 40.0 to 44.9 in adult]Onset: 888817-13-8559MksmvrrMzpok nutritional; endocrine; and metabolic disorders (2 sources)Body mass index 40+ - severely obese; Translations: [Body mass index (BMI) 45.0-49.9, adult]83-81-7248YopjnofWfmzlynp codes; unclassified (2 sources)Pain, unspecified; Translations: [Pain, unspecified]Onset: 01-02-2023 EpisodicSpondylosis; intervertebral disc disorders; other back problems (20 sources)Sciatica; Translations: [Sciatica, unspecified side]Onset: 904733-32-3897YohtcpicBtkvyzj and strains (8 sources)Strain of muscle, fascia and tendon of right hip, initial encounter EpisodicThyroid disorders (20 sources)Adriane thyroiditis; Translations: [Autoimmune thyroiditis]Onset: 987678-83-4439MlfdomqEudozlqrjwgu (2 sources)Post-op; Translations: [Post-op]Onset: 08-57-2632Escrtpzwwiwu (1 source)Patient on antidepressant monitoring planOnset: 793545-21-0058 Unclassified (1 source)Baseline PHQ-9Onset: 898684-61-9270Wkemxqhmdwbx (1 source)Other low back pain; Translations: [Other low back pain]Onset: 05-03-2024 Past or Other Problems Problem ClassificationProblemDateDocumented DateEpisodic/ChronicAcute bronchitis (20 sources)Acute infective bronchitis; Translations: [Acute bronchitis due to other specified organisms]Onset: 03-25-2024 Resolved: 768827-27-7177BdvvxqkgOfppj aftercare (20 sources)Long-term current use of drug therapy; Translations: [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]Onset: 339296-63-4735DzmkewbhMlwkc non- traumatic joint disorders (9 sources)Other specified joint disorders, right hip; Translations: [Other specified joint disorders, right hip]Onset: 324855-82-5039AcmmaurbLfizj upper respiratory infections (20 sources)Acute pansinusitis; Translations: [Acute pansinusitis, unspecified] Onset: 07-31-2023 Resolved: 334734-85-6417FaznxqvwZiajvdifdop; intervertebral disc disorders; other back problems (20 sources)Degeneration of lumbar intervertebral disc; Translations: [Degeneration of intervertebral disc of lumbar region with discogenic back pain and lower extremity pain]Onset: 05-12-2024 Resolved: hronic Results Test NameValueInterpretationReference RangeFacilityX-ray reportOrdered By: Panda Bates on [id number] reportFIRGENESIS [facility] [address] [place] [address] XRay Report Signed Patient: Danuta Banegas MR#: [id number] : 1965 Acct:[id number] Age/Sex: 59 / F ADM Date: 5 Loc: [facility] [facility] Room: Type: [facility] CLI Attending Dr: Manolo Gonzalez II, MD Copies to: Manolo Gonzalez MD~ Ordering Provider: Manolo Gonzalez MD Date of Service: 12/05/24 XR/XR hip RT min 2V(w/wo pelvis)*: M25.551 - Pain in right hip RIGHT HIP - 2 views: CLINICAL HISTORY: Right hip pain no new injury. COMPARISON: None FINDINGS: Moderate left and severe right degenerative changes of the hips without acute bony process. XR/XR hip RT min 2V(w/wo pelvis)* IMPRESSION: MODERATE LEFT AND SEVERE RIGHT DEGENERATIVE CHANGES OF THE HIPS WITHOUT ACUTE BONY PROCESS.. Impression dictated by: Panda Bates Jr., D.O. 12/05/2024 10:39 AM Dictation Location: [place] [address] Transcribed By: [facility] 12/05/24 1039 Dictated By: Panda Bates Jr, DO 12/05/24 1038 Signed By: 12/05/24 1039 [facility] min 2V(w/wo pelvis)*on 49-74-1416VM hip RT min 2V(w/wo pelvis)*[facility] [address] [place] [facility] [address] [place] [address] XRay Report Signed Patient: Danuta Banegas MR#: [id number] : 1965 Acct:[id number] Age/Sex: 59 / F ADM Date: 12/05/24 Loc: [facility] Room: Type: [facility] CLI Attending Dr: Manolo Gonzalez II, MD Copies to: Manolo Gonzalez MD Ordering Provider: Manolo Gonzalez MD Date of Service: 12/05/24 XR/XR hip RT min 2V(w/wo pelvis)*: M25.551 - Pain in right hip RIGHT HIP - 2 views: CLINICAL HISTORY: Right hip pain no new injury. COMPARISON: None FINDINGS: Moderate left and severe right degenerative changes of the hips without acute bony process. XR/XR hip RT min 2V(w/wo pelvis)* IMPRESSION: MODERATE LEFT AND SEVERE RIGHT DEGENERATIVE CHANGES OF THE HIPS WITHOUT ACUTE BONY PROCESS.. Impression dictated by: Panda Bates Jr., D.O. 12/05/2024 10:39 AM Dictation Location: [place] [address] Transcribed By: [facility] 12/05/24 1039 Dictated By: Panda Bates Jr, DO 12/05/24 1038 Signed By: 12/05/24 [facility] GroupXR FOOT LT MIN 3Von 03-19-2024 [place] [address] XRay Report Signed Patient: Flakita Banegas MR#: [id number] : 1965 Acct:[id number] Age/Sex: 58 / F ADM Date: 03/18/24 Loc: RAD Attending Dr: Sepideh Palafox D.P.M. Ordering Physician: Sepideh Palafox D.P.M. Date of Service: 03/18/24 Procedure(s): XR foot LT min 3V Accession Number(s): [id number] cc: Sepideh Palafox D.P.M.; Ken Larry M.D. [place] [id number] Patient Name: FLAKITA BANEGAS MRN: [id number] date: 1965 Sex: F Assigned Patient Location: [facility] Current Patient Location: Accession/Order Number: [id number] Exam Date: 03/18/2024 10:42 Report Date: 03/19/2024 [...] significant degenerative joint disease. Electronically authenticated by: YARITZA LEMONS Date: 03/19/2024 06:49 Dictated By: Yaritza Lemons M.D. Signed By: 03/19/2452 DD/ 8 TD/TT: Ignition Expert:TAQUERIAHRadiology, Radiologist, - 03/19/2024 [place] [address] XRay Report Signed Patient: Flakita Banegas MR#: [id number] : 1965 Acct:[id number] Age/Sex: 58 / F ADM Date: 03/18/24 Loc: RAD Attending Dr: Sepideh Palafox D.P.M. Ordering Physician: Sepideh Palafox D.P.M. Date of Service: 03/18/24 Procedure(s): XR foot LT min 3V Accession Number(s): [id number] cc: Sepideh Palafox D.P.M.; Ken Larry M.D. [place] [address] Patient Name: FLAKITA BANEGAS MRN: [id number] date: 1965 Sex: F Assigned Patient Location: [facility] Current Patient Location: Accession/Order Number: [id number] Exam Date: 03/18/2024 10:42 Report Date: 03/19/2024 [...] significant degenerative joint disease. Electronically authenticated by: YARITZA LEMONS Date: 03/19/2024 06:49 Dictated By: Yaritza Lemons M.D. Signed By: 03/19/2452 DD/ 8 TD/TT: Ignition Expert: [place] HealthcareRadiology Study observation (narrative)[facility] HealthcareXR FOOT LT MIN 3VOrdered By: Radiologist Radiology on 75-22-6610CCCHBo[facility] Center Work Phone: all CBC WITH AUTO DIFFon 40-27-8419YTNSLBWKW ABSOLUTE IZZV4DPOP HealthcareBasophils/100 WBC (Bld)1.2 %0.2 - 2.0 %[facility] Eosinophils/100 WBC (Bld)4.9 %0.9 - 7.0 %[facility] CenterErythrocyte distribution width (RBC) [Ratio]12.4 %11.0 - 15.0 %[facility] CenterHematocrit (Bld) [Volume fraction]40.1 %36.0 - 48.0 %[facility] CenterHemoglobin (Bld) [Mass/Vol]12.9 g/dL 12.0 - 16.0 g/dLBoone Hospital CenterIMMATURE GRANULOCYTES ABS AUTO0.01NOCameron Regional Medical Center Immature granulocytes/100 WBC (Bld)0.3 %0.0 - 0.5 %[facility] CenterInterpretation and review of laboratory resultsAbnormalNOCameron Regional Medical CenterLYMPHOCYTES ABSOLUTE AUTO1.7NOMS [facility] HospitalLymphocytes/100 WBC (Bld)48.1 %20.5 - 60.0 %[facility] CenterMCH (RBC) [Entitic mass]29.9 pg26.7 - 34.0 pgBoone Hospital CenterMCHC (RBC) [Mass/Vol]32.2 g/dL29.9 - 35.2 g/dLBoone Hospital CenterMCV (RBC) [Entitic vol]93 fL 81.0 - 99.0 fLBoone Hospital CenterMONOCYTES ABSOLUTE AUTO0.4N[facility]S [facility] Monocytes/100 WBC (Bld)11.5 %1.7 - 12.0 %[facility] CenterNEUTROPHILS ABSOLUTE AUTO1.2LowNOMS HealthcareNeutrophils/100 WBC (Bld)34 %Low43.0 - 75.0 %[facility] CenterPlatelet mean volume (Bld) [Entitic vol]10.3 fL9.5 - 13.5 fLBoone Hospital CenterTBH EO #0.2NOMS HealthcareTBH EBX200PAUN HealthcareTB RBC4.31NOMS [facility] HospitalTB WBC3.5LowNOSC HealthcareCLINISYNCNOMS HealthcareNo Panel InformationOrdered By: Ayanna Daria on 25-09-1978TEH Hip WO Contrast Right 1 [facility] 42-14-3890Ovizmz-[id number] Danuta Banegas 1965 F Date Provider Department Center 02/08/2023 AMBER CASTANEDA ORTHO MPORTHO No family history on file Level of Service:12455 DE POSTOP FOLLOW UP VISIT RELATED TO ORIGINAL PX Reason for Visit and Comments: Follow-up [908472][facility]36on Patient stated that her incision has puss coming out, its red and irritate. Theres no fever. And has been going on for a few days now. Please call her back with further instructions.[facility] HospitalOrders Onlyon 39-44-4773Ljnomu [id number] Danuta Banegas 1965 Date Provider Department [place] 01/29/2023 29336-EKZGYQORENETTA KINSEY MP ORTHO MPORTHO No family history on fileNormalUniversElyria Memorial HospitalTelephoneon [id number] Danuta Banegas 1965 F Date Provider Department Center 01/29/2023 COLETTE DICKERSON MP ORTHO MPORTHO No family history on file Reason for Visit and Comments: Post-op Problem [712700][facility] Hospital[facility] 12-18-4655Dmpaqf-[id number] Danuta Banegas 1965 Date Provider Department Center 01/12/2023 AMBER CASTANEDA ORTHO MPORTHO No family history on file Level of Service:45742 DE POSTOP FOLLOW UP VISIT RELATED TO ORIGINAL PX Reason for Visit and Comments: Post-op [483][facility] HospitalHPon 81-00-9013EXP&P reviewed. The patient was examined and there are no changes to the H&P.Normal [facility]. Elizabeth HospitalOPNOTEon 79-82-0353LBSYTZMXLO, FRACTURE, WRIST, distal (L) Operative Note Date: 01/02/2023 Location: [facility] OR Name: Danuta Banegas, : 1965, Diagnosis Pre-op Diagnosis * Open fracture of right wrist, initial encounter [S62.101B] Post-op Diagnosis * Open fracture of right wrist, initial encounter [S62.101B] Procedures * ORIF, FRACTURE, WRIST, distal Surgeons * Otto Gianni - Primary Procedure Summary Anesthesia: Regional ASA: III Estimated Blood Loss: 10 mL Implants Type Name Action Serial No. Plate PLATE,DSTL-RADUS,2.4M,6H/3H,LT - [id number] Implanted Screw SCREW,LOCKING,2.4M,16M,STAR - [id number] Implanted Screw SCREW,LOCKING,2.4M,18M,STAR - [id number] Implanted Screw SCREW,LOCKING,2.4M,20M,STAR - [id number] Implanted Screw SCREW,SLF-TPNG,CORTEX,2.4M,24M - [id number] Wasted Screw SCREW,CORTEX,2.7M,T8,12M - [id number] Implanted Screw SCREW,CORTEX,2.7M,T8,14M - [id number] Implanted Pin K-WIRE,TROCAR PT,1.41I207GI - [id number] Used, Not Implanted Pin K-WIRE,#1,1.6D083RS - [id number] Used, Not Implanted Staff: Lead Installer: Liseth Mathews RN Scrub Person: Leola Maloney Indications: Danuta Banegas is an 57 y.o. female who is [...] PACU - hemodynamically stable. Condition: stable Otto Gianni PichexNduwwwbmrb of [facility] Medical CenterPOCT GLUCOSE METER UNSOLICITED RESULTSon 62-32-4488Tebweht [Mass/Vol]80 mg/qZWftepa20-546 St. [facility] HospitalComment on above:Order Comment: Waived Testing in the ED is performed under the ED CLIA certificate #[id number].Result Comment: cykvz6Ppafbowua By: #### [id number] ####[facility] (BEAKER)[address] GÓMEZCOATESVILLE VETERANS AFFAIRS MEDICAL CENTERAnnabelleSHE[place]ERDST[place], [place] [address]GTzi 71-05-3779FR Attestation signed by Otto George MD at [...] Wrist (ED follow up ) 12/29/22 Danuta Banegas is a 57 y.o. year old female [...] gabapentin (NEURONTIN) 600 mg, oral, Nightly HYDROcodone-acetaminophen ([place]) 5-325 mg tablet 1 tablet, oral, Every [...] Psych: Appropriate mood behavior Left Upper Extremity: Ncgajionin-sjikh-vgiv splint in place without any damage ROM Left hand digits: full AROM and PROM with pain at extremes of thumb ROM Strength: business control manager 5/5, thumb 5/5, interossei 5/5 Sensation: intact over median, ulnar, and radial nerve distributions Cardiovascular: Well-perfused digits Imaging personally reviewed and our interpretation: XR Left wrist shows a reduced distal radius fracture with comminution and neutral alignment Assessment/Plan Danuta Banegas is a 57 y.o. year old female [...] dry. Renetta Kinsey MD Orthopaedic Surgery PGY-1 [facility] 12/29/22 10:57 AMNormalUnCleveland Clinic Union HospitalLabon 90-39-1518Trz [id number] Danuta Banegas 1965 F Date Provider Department [place] 12/29/2022 2244-[facility] MP LAB RESOURCE MP DRAW Medical Pavi No family history on fileNormalUniversElyria Memorial HospitalMRSA/MSSA DNA NASALon 37-60-5883BLAV DNANegativeNormalNegativeUnCleveland Clinic Union HospitalComment on above:Order Comment: Testing methodology is an automated qualitative in vitro [...] A negative result does not preclude nasal colonization.Performed By: #### [id number] ####[facility] (BEAKER)[address] [place], [place] [address]AOET DNAPositiveAbnormalNegative St. Elizabeth HospitalComment on above:Order Comment: Testing methodology is an automated qualitative in vitro diagnostic test for the dire ctdetection and differentiation of Staphylococcus aureus (SA) DNA and methicillin-resistant Staphylococcus aureus (MRSA) DNA from nasal swabs in patients at risk for nasal colonization. The test utilizes real-time polymerase chain reaction (PCR) for the amplification of MRSA/SA DNA and fluorogenic t arget-specific hybridization probes for the detection of the amplified DNA. A negative result does not preclude nasal colonization.Performed By: #### [id number] ####[facility] ([employer] [facility] [employer])[address] [place], [place] [address]Hgzjsl Visiton 92-63-9791Ieqskn-up [id number] Danuta Banegas 1965 F Date Provider Department Center 12/29/2022 373-OTTO GEORGE MP ORTHO MPORTHO No family history on file Level of Service:68103 DE OFFICE/OUTPATIENT NEW LOW MDM 30-44 MINUTES Reason for Visit and Comments: Follow-up [225469] - ED follow upNormalUniversMcCullough-Hyde Memorial Hospital on 17-31-0975MTCTGFTewl of arrival (squad #, walk in, police, etc): private auto Chief complaint(s): possible left wrist broken Arrival Note (brief scenario, 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 Pt also states her left hip is hurting. Pt had sling at home put that on and is icing her wrist.[facility] HospitalPROH[facility] 76-26-0705XNDIIBCOV Chief Complaint Patient presents with Wrist Injury Initial evaluation completed by Dr. Moncada at 9:15 PM. Danuta Banegas is a 57 y/o female presenting to [...] fall Fall: Fall occurred: Tripped Impact surface: [place] Point of impact: Hands Entrapped after fall: no Pain details: Severity: Moderate Onset quality: Sudden Duration: 4 hours Timing: Constant Dislocation: no Foreign body present: No foreign bodies Relieved by: Acetaminophen Associated symptoms: no fever [place] Coma Scale Score: 15 Patient History Past [...] ED Course & MDM Diagnoses as of 01/01/23 0723 Fall, initial encounter Closed fracture of left [...] signing this emergency patient record, the Emergency Physician/DIRECTOR BUSINESS DEVELOPMENT/PA-C attests that all entries made into the electronic medical record by the scribe prior to the Physician/DIRECTOR BUSINESS DEVELOPMENT/PA-C signature reflect an accurate accounting of the evaluation and care rendered by that Emergency Physician/DIRECTOR BUSINESS DEVELOPMENT/PA-C. The Emergency Physician/DIRECTOR BUSINESS DEVELOPMENT/PA-C assumes full responsibility for those entries. The Emergency Physician/DIRECTOR BUSINESS DEVELOPMENT/PA-C also attests that any patient testing or treatment that was instituted by nursing staff. Bandar Moncada MD 01/01/23 0741NormalUniversity [facility] Vital Signs Date TimeVital SignValuePerforming ItmknwazeLiogrrgt82-91-9844 08:34-0500Body caxqjf331.8 cmKen Larry MD Work Phone: [facility]11-03-2025 08:34-0500 Body mass index (BMI) [Ratio]44.7 kg/m2Ken Larry MD Work Phone: [facility]11-03-2025 08:34-0500 Body jpmicamdyrq50.1 [degF]Ken Larry MD Work Phone: [facility]11-03-2025 08:34-0500 Body ffekzl727.52 kgKen Larry MD Work Phone: [facility]11-03-2025 08:34-0500 Diastolic blood ignfoszc61 mm[Hg]Ken Larry MD Work Phone: 1(956)638-[address] [place], [place] [address]11-03-2025 08:34-0500 Heart rate82 /minKen Larry MD Work Phone: [phone])[address]11-03-2025 08:34-0500 Respiratory rate20 /minKen Larry MD Work Phone: [phone])[address]11-03-2025 08:34-0500 SaO2% (BldA) [Mass fraction]94 %Ken Larry MD Work Phone: [phone])[address]11-03-2025 08:34-0500 Systolic blood arzfcnfe623 mm[Hg]Ken Larry MD Work Phone: [phone])[address]09-26-2025 08:53-0400 Diastolic blood afbibyyg974 mm[Hg]Ken Larry MD Work Phone: [phone])[address]09-26-2025 08:53-0400 Systolic blood zljygogs685 mm[Hg]Ken Larry MD Work Phone: [phone])[address]09-26-2025 08:38-0400 Body yfmwnu486.8 cmKen Larry MD Work Phone: [phone]09-26-2025 08:38-0400 Body mass index (BMI) [Ratio]45.1 kg/m2Ken Larry MD Work Phone: [phone])[address]09-26-2025 08:38-0400 Body zojbhi382.7 kgKen Larry MD Work Phone: [phone]07-29-2025 15:46-0400 Body aomlav652.8 cmKen Larry MD Work Phone: [facility] CenterQcpgqlweat56-92-6145 15:46-0400Body mass index (BMI) [Ratio]44.77 kg/m2Ken Larry MD Work Phone: [facility] CenterTzvwudlpuu59-88-1657 15:46-0400Body temperature 97.3 [degF]Ken Larry MD Work Phone: [facility] CenterYjquooqqbg91-20-9859 15:46-0400Body pewhrd669.52 kgKen Larry MD Work Phone: [facility] CenterXwazoyixiq55-47-6038 15:46-0400Diastolic blood mm[Hg]Ken Larry MD Work Phone: [facility] CenterZoiksnlqrw07-05-4736 15:46-0400Heart rate71 /min Ken Larry MD Work Phone: [facility] CenterNocqnogyic68-82-6991 15:46-0400Respiratory rate18 /minKen Larry MD Work Phone: [facility] CenterWnuzwesfza23-94-3358 15:46-3809XqA8% (BldA) [Mass fraction]92 %Ken Larry MD Work Phone: [facility] CenterJmzfkdqubv01-36-1010 15:46-0400Systolic blood nzcrzquz310 mm[Hg]Ken Larry MD Work Phone: [facility] CenterHkwyhzljlu65-34-6538 14:54-0400Body equzax377.8 cmKen Larry MD Work Phone: [facility] CenterLsjrspuxyi43-33-8999 14:54-0400Body mass index (BMI) [Ratio]44.62 kg/m2Ken Larry MD Work Phone: [facility] CenterPchmepgudc97-24-2457 14:54-0400Body temperature 97.5 [degF]Ken Larry MD Work Phone: [facility] CenterFowzjbdcas97-46-6903 14:54-0400Body fsdlid969.07 kgKen Larry MD Work Phone: [facility] CenterGrztpnqlkp33-62-2165 14:54-0400Diastolic blood bwtavuas04 mm[Hg]Ken Larry MD Work Phone: [facility] CenterUbslvhvtxl77-89-1610 14:54-0400Heart rate87 /min Ken Larry MD Work Phone: [facility] CenterGnxcuvqyvx81-20-0764 14:54-0400Respiratory rate20 /minKen Larry MD Work Phone: [facility] CenterSnujpbxmuw62-95-6258 14:54-1617ViR6% (BldA) [Mass fraction]97 %Ken Larry MD Work Phone: [facility] CenterIiwmsonkmy77-30-2335 14:54-0400Systolic blood mm[Hg]Ken Larry MD Work Phone: [facility] CenterZsnhgpumwa34-39-8869 13:10-0400Body bbqowm640.8 cmKen Larry MD Work Phone: [facility] CenterGgbvhnvyyj92-88-2422 13:10-0400Body mass index (BMI) [Ratio]43.91 kg/m2Ken Larry MD Work Phone: [facility] CenterOgkmoogpzb74-91-6208 13:10-0400Body alimqcbsvsf69 [degF]Ken Larry MD Work Phone: [facility] CenterChntrrczji93-42-7819 13:10-0400Body pbidgt032.8 kgKen Larry MD Work Phone: [facility] CenterQnidhuybnd21-05-1015 13:10-0400Diastolic blood cwmqafpv67 mm[Hg]Ken Larry MD Work Phone: [facility] CenterWombxztuaq19-91-9754 13:10-0400Heart rate80 /min Ken Larry MD Work Phone: [facility] CenterSeryzfxgzk67-16-5106 13:10-0400Respiratory rate20 /minKen Larry MD Work Phone: [place] [address]Ppgdjbrmld39-66-6185 13:10-0782XfE3% (BldA) [Mass fraction]91 %Ken Larry MD Work Phone: [facility] CenterLadlrwfotk43-98-3765 13:10-0400Systolic blood zayucgsc769 mm[Hg]Ken Larry MD Work Phone: [facility] CenterLyyspcztob31-44-8251 08:52-0500Body xssgde853.8 cmKen Larry MD Work Phone: [facility] CenterTborofixeb52-87-0531 08:52-0500Body mass index (BMI) [Ratio]45.05 kg/m2Ken Larry MD Work Phone: [facility] CenterZzmpqvahsi88-13-8338 08:52-0500Body temperature 97.11 [degF]Ken Larry MD Work Phone: [facility] CenterIgmqsyipaq09-52-8805 08:52-0500Body ulefyj326.43 kgKen Larry MD Work Phone: [facility] CenterWwuljvinex02-87-1248 08:52-0500Diastolic blood dgwyxxaf07 mm[Hg]Ken Larry MD Work Phone: [facility] CenterFtevnyrilp79-01-2587 08:52-0500Heart rate94 /min Ken Larry MD Work Phone: [facility] CenterObpndvpqxd41-54-8455 08:52-0500Respiratory rate20 /minKen Larry MD Work Phone: [facility] CenterTwrlxcpkgx77-24-1638 08:52-5208RzE6% (BldA) [Mass fraction]98 %Ken Larry MD Work Phone: [facility] CenterWmmkhxlguv16-10-4634 08:52-0500Systolic blood tlobjohf812 mm[Hg]Ken Larry MD Work Phone: [facility] CenterDbpsjjumun72-10-1803 18:20-0500Diastolic blood cuqutpxt415 mm[Hg]Ken Larry MD Work Phone: [facility]02-22-2025 18:20-0500 Systolic blood gktywqev682 mm[Hg]Ken Larry MD Work Phone: [facility]02-22-2025 14:20-0500 Body twjizl344.8 cmKen Larry MD Work Phone: [phone] [place], [place] [address]02-22-2025 14:20-0500 Body tdbiuufjpwk92.1 [degF]Ken Larry MD Work Phone: [phone])913-[address] [place], [place] 201[address]02-22-2025 14:20-0500 Body ezngah195.1 kgKen Larry MD Work Phone: [phone] [place], [place] [address]02-22-2025 14:20-0500 Heart rate83 /minKen Larry MD Work Phone: [phone])[address]02-22-2025 14:20-0500 Respiratory rate18 /minKen Larry MD Work Phone: [phone])[address]02-22-2025 14:20-0500 SaO2% (BldA) [Mass fraction]97 %Ken Larry MD Work Phone: 1(616)666-[address] [place], [place] [address]02-05-2025 08:01-0500 Body vedsrg669.8 cmKen Larry MD Work Phone: [facility] CenterKbrrkexwry17-71-0365 08:01-0500Body mass index (BMI) [Ratio]45.05 kg/m2Ken Larry MD Work Phone: [facility] CenterZkyqrrygcv92-57-3502 08:01-0500Body temperature 97.11 [degF]Ken Larry MD Work Phone: [facility] CenterRmqzporgme40-75-5654 08:01-0500Body .43 kgKen Larry MD Work Phone: [facility] CenterDcbjghbzyg53-30-5980 08:01-0500Diastolic blood awbrmkrx49 mm[Hg]Ken Larry MD Work Phone: [facility] CenterFunuyykfve58-32-7909 08:01-0500Heart rate76 /min Ken Larry MD Work Phone: [facility] CenterCzsolayhld34-39-9617 08:01-0500Respiratory rate22 /minKen Larry MD Work Phone: [facility] CenterKbtdkzjewl57-13-7379 08:01-3463UcA5% (BldA) [Mass fraction]96 %Ken Larry MD Work Phone: [facility] CenterRvxcbxanxi45-06-2111 08:01-0500Systolic blood tuxxcfqx245 mm[Hg]Ken Larry MD Work Phone: 1([phone] [place], [place] [address]Anhmqrgeno47-75-1340 10:22-0500Body qjhbuy520.8 cmKen Larry MD Work Phone: [phone] [place], [place] [address]Uscfxezcbd77-49-8778 10:22-0500Body mass index (BMI) [Ratio]44.19 kg/m2Ken Larry MD Work Phone: 1(779)891-[address] [place], [place] [address]Erruizsrjj26-92-6970 10:22-0500Body temperature 96.6 [degF]Ken Larry MD Work Phone: [facility] CenterYggoardreo28-70-9439 10:22-0500Body wqkiji474.71 kgKen Larry MD Work Phone: 1([phone] [place], [place] [address]Lypxnijnvv77-55-6610 10:22-0500Diastolic blood tgajtyxv44 mm[Hg]Ken Larry MD Work Phone: 1(960)456-[address] [place], [place] [address]Qdzeiikcdc96-15-2868 10:22-0500Heart rate93 /min Ken Larry MD Work Phone: 1(284)478-[address] [place], [place] [address]Dvfhankgxk06-64-5602 10:22-0500Respiratory rate20 /minKen Larry MD Work Phone: [facility] CenterExpdqpaane71-40-1275 10:22-1304DyU8% (BldA) [Mass fraction]98 %Ken Larry MD Work Phone: [facility] CenterGzlzonxlur59-99-6261 10:22-0500Systolic blood bqejbulw584 mm[Hg]Ken Larry MD Work Phone: 1([phone] [place], [place] [address]Sryvtbohyv05-15-8816 14:19-0400Body ukfnre737.8 cmKen Larry MD Work Phone: [phone] [place], [place] [address]Okxjywuati88-51-4754 14:19-0400Body mass index (BMI) [Ratio]44.48 kg/m2Ken Larry MD Work Phone: [phone] CenterJuohiwmhbq56-88-0265 14:19-0400Body temperature 97.11 [degF]Ken Larry MD Work Phone: 1(651)[facility] [place], [place] [address]Rstcaizdli74-76-7292 14:19-0400Body rvqkhu135.62 kgKen Larry MD Work Phone: 1(472)[facility] [place], [place] [address]Hdcpzccmzz53-47-5509 14:19-0400Diastolic blood rhaaunyv76 mm[Hg]Ken Larry MD Work Phone: 1(366)[facility] [place], [place] [address]Sfgcjgdhyc96-92-9632 14:19-0400Heart rate57 /min Ken Larry MD Work Phone: [phone])[facility] [place], [place] [address]Kkdoeqjfcx92-63-6764 14:19-0400Respiratory rate22 /minKen Larry MD Work Phone: [facility] CenterEgwyqntfux78-83-1111 14:19-2579OwS4% (BldA) [Mass fraction]99 %Ken Larry MD Work Phone: [facility] CenterJjzgtfiaxl33-40-3708 14:19-0400Systolic blood bigknebh092 mm[Hg]Ken Larry MD Work Phone: 1(097)[facility] [place], [place] [address]Sugnnfuxqp90-50-3951 11:55-0400Body ogqqut186.53 cmMark [facility] DOOrthoAlliance [facility]'s Health CenterLasq48-03-1383 11:55-0400Body mass index (BMI) [Ratio]45.35 kg/m2Mark [facility] DOOrthoAlliance of Mdme88-90-4253 11:55-0400Body hrfmde689.34 kgMark [facility] DOOroAlliQuinlan Eye Surgery & [facility] Center Encounters Encounter DateEncounter TypeCare ProviderFacilityStart: 01-12-2025 End: 82-87-9234lzaqijdghnDkbi Naderer MD Work Phone: -[facility] ClydeStart: 01-12-2025 End: 00-52-7240Ucypqub encounter procedureKen Larry MD-[facility] [place] Work Phone: Start: 12-05-2024 End: 65-44-8461Bzffipt encounter procedureRobert Carlos Almaguer MD-[facility] Work Phone: Start: 12-05-2024 End: 81-80-2332wsicckqcrdFeop Naderer MD Work Phone: [facility] Work Phone: Start: 40-26-3827bkhjeemahvYtdj T[facility]il HospitalOrthoNeuroStart: 10-19-2024 End: 23-10-2738FxkjqbBoxt Naderer MD Work Phone: noms CWM FMComment on above:Degenerative lumbar spinal stenosis; Generalized anxiety disorder ; Essential hypertension, benign ; DyslipidemiaStart: 24-06-2729ibsctrsetbFbsa KolichOrthoNeuroStart: 10-13-2024 ambulatoryMark KolichOrthoNeuroStart: 10-07-2024 End: 13-58-4309kncgidzrxpMGLE NADERERNot AvailableStart: 10-07-2024 End: 54-41-6040Kltmen outpatient visit 15 minutesKen Larry MD Work Phone: NOWM CWM FMComment on above:Pain of right hip joint (Primary Dx)Start: 10-07-2024 End: 40-45-4749Weceqj Juliana Larry MD Work Phone: NOMX CWM FMStart: 10-07-2024 End: 87-39-2782Thknce Juliana Larry MD Work Phone: NOKK CWM FMStart: 09-25-2024 End: 41-61-7836BlvupgvjoTkmjqxud Mirza BEYER Work Phone: NONG FB PTComment on above:Other specified joint disorders, right hip (Primary Dx); Primary localized osteoarthritis of hips, bilateral; Pain of right hip jointStart: 09-25-2024 End: 82-02-1010Dgifzk [employer] Technologies InternationalRaquel Blue MASTER PRINTER Work Phone: NOPG FB PTStart: 09-25-2024 End: 76-25-7859Cezjgi Donell Blue MASTER PRINTER Work Phone: noms FB PTStart: 09-23-2024 End: 37-39-1681KfqdwoRkzh Naderer MD Work Phone: noms CWM FMComment on above:Degenerative lumbar spinal stenosisOther specified joint disorders, right hip (Primary Dx); Primary localized osteoarthritis of hips, bilateral; Pain of right hip jointStart: 09-18-2024 End: 17-05-9132GoxkkctjxSnqbmlfh Wright MASTER PRINTER Work Phone: noms FB PTComment on above:Other specified joint disorders, right hip (Primary Dx); Primary localized osteoarthritis of hips, bilateral; Pain of right hip jointStart: 09-11-2024 End: 78-77-0211OrgloivuqPdpmzo J Evans PT Work Phone: NORP FB PTComment on above:Other specified joint disorders, right hip (Primary Dx); Primary localized osteoarthritis of hips, bilateral; Pain of right hip jointStart: 09-11-2024 End: 59-47-6929Nvyibx Mariela Trejo PT Work Phone: NOMS FB PTStart: 09-11-2024 End: 91-58-3244Cjbqcb Mariela Trejo PT Work Phone: NOVP FB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 2x/week x 6 weeks Treatment: therapeutic exercises, manual therapy, neuromuscular re-ed, modalities as needed for pain and inflammation: ice, heat, e-stim documented in this encounterBoone Hospital [id number] History of Present illness Narrative* Hazel Trejo, PT - 07/22/2024 5:00 PM EDT Time In: 5:00 pm Time Out: 6:00 pm Supervised Time: 60 min Total Time: 60 min Evaluation Time: 20 min Visit Number: 1, 20% co-insurance, 25 visits per year Chief Complaint: M25.851: Other specified joint disorder right hip M25.551: Pain right hip joint M16.11: Unilateral primary OA right hip From Dr. Watts: MRI hips: Chronic right intermediate grade undersurface partial tearing of gluteusminimus on the background of moderate gluteus minimus and medius tendinosis. Moderate right conjoined hamstring tendinosis. No labral tear. Mild to moderate bilateral acetabular OA. Report scanned on05/28/24. On 07/15/24 pt saw aviation medicine specialist Joel Rhoades Jr, and diagnosed with Degenerative disc diseased lumbar spine Discogenic back pain and LE pain, and Spondylolisthesis lumbar region. No reports scanned in from this visit. Pt is scheduled for MRI lumbar spine 07/30/24 Precautions: progress as tolerated PMHx: fibromyalgia, L wrist fracture with ORIF, 2 arthroscopic left knee surgeries, fracture of right 5th metatarsal Subjective Mechanism of injury: 1.5 years ago pt fell in driveway injuring hip and back and fracturing left wrist. Then a second fall 1 year ago re-injuring hip. She was seen by Dr. Watts in [place] for hippain to include stretching and strengthening Location of Symptoms: Right hip Pain level: 6/10 average What increases symptoms: bending forward to reach foot, walking, stairs, lifting right leg. What decreases symptoms: rest Pain radiates: R LE groin pain, radiating pain from lumbar spine Timing of pain: constant Numbness/tingling: no Imaging: as above Objective: Lumbar spine AROM: Flexion: fingertips to knees. Ext, bilateral sidebend: WFL Right Hip ROM: AAROM: Hip flexion: 65 deg Hip abduction: 25 deg Hip extension: 5 deg Prone hip IR: 15 deg Prone hip ER: 25 deg Muscle Strength: R knee extension: 4/5 R knee flexion: 4/5 R hip flexion: pain R hip abduction: 4-/5 Left Hip ROM: AROM: Hip flexion: 100 deg Hip abduction: 30 deg Prone hip IR: 25 deg Prone hip ER: 35 deg Muscle Strength: L LE: 5/5 Palpation: point tender right glut med/min, greater trochanter, L3-S1 Joint Play: decreased right hip, R SI Muscle length: decreased right hip flexors, hamstrings, ITB Special Tests: Positive SLR test right. Gait: right lateral trunk motion with WB on right Prior Level of Function: Ambulation: Indep Assistive Devices: none ADLs: Indep with modifications Extracurricular Activities: limited due to pain Employment: not working INTERVENTIONS: X 15 minutes of manual therapy: hip distraction, manual stretch, gentle gapping lumbar spine in sidelying X 25 minutes of therapeutic exercises per flowsheet. PT Assessment: Therapy Diagnosis: right hip pain with history of muscle tearing, loss of ROM, OA bilateral hips. Lumbar spine issues affecting right LE also. Functional Limitations: LEFS: 25/80 points: 69% impairment Prison Goals: in 6 weeks Improve ROM right hip flexion to enable ADL's don/doff shoes pain 50% in 6 weeks to 3/10 average Increase strength R LE to 4.5/5 - 5/5 to improve body mechanics, endurance, gait pattern Pt able to tolerate standing closed chain strengthening Home program in place 0-3/10 pain with pt able to manage indep. Rehab Potential: Good Plan: PT 2x/week x 6 weeks Treatment: therapeutic exercises, manual therapy, neuromuscular re-ed, modalities as needed for pain and inflammation: ice, heat, e-stim I hereby deem this POC medically necessary. Please sign below and fax back to the number below. Physician Signature: Date: documented in this encounterBoone Hospital [id number] History of Present illness Narrative* Ken Larry MD - 07/08/2024 1:33 PM EDTAssociated Problem(s): Generalized anxiety disorder (CMS/HCC) Symptoms stable and continue prozac. * Ken Larry MD - 07/08/2024 1:33 PM EDTAssociated Problem(s): Essential hypertension, benign (CMS/HCC) BP controlled and monitor PRN. * Ken Larry MD - 07/08/2024 1:32 PM EDTAssociated Problem(s): Primary localized osteoarthritis of hips, bilateral Continued pain and start PT. Follow up with specialists. Use norco PRN. * Ken Larry MD - 07/08/2024 1:32 PM EDTAssociated Problem(s): DDD (degenerative disc disease), lumbar Continued pain and start PT. Follow up with specialists. Use norco PRN. * Ken Larry MD - 07/08/2024 1:00 PM EDT Images from the original note were not included. Subjective Patient ID: Danuta Banegas is a 59 y.o. female who presents for Follow-up (6 m f/u), Hip Pain (Right hip), and Back Pain (Lower back). Follow up HTN, anxiety, and pain. Not checking BP away from office but taking medication daily. BP normal today. Tolerating medication without side effects. Anxiety stable. Not as stressed out or overwhelmed. Not as nervous or worry as much. Not as aparicio or irritable. Pain unchanged. Seen by ortho for OA hips and tendinosis and referred for PT. Concerned pain coming from back and referred to neurosurgeon. Using norco PRN and helps with pain. Review of Systems Respiratory: Negative for cough, [...] List Items Addressed This Visit Fibromyalgia syndrome Relevant Medications HYDROcodone-acetaminophen ([place]) 5-325 MG tablet Essential hypertension, benign (CMS/HCC) - Primary BP controlled and monitor PRN. Generalized anxiety disorder (CMS/HCC) Symptoms stable and continue prozac. Primary localized osteoarthritis of hips, bilateral Continued pain and start PT. Follow up with specialists. Use norco PRN. DDD (degenerative disc disease), lumbar Continued pain and start PT. Follow up with specialists. Use norco PRN. documented in this encounterBoone Hospital [id number] History of Present illness Narrative* Ken Larry MD - 05/12/2024 9:25 AM ESTAssociated Problem(s): Primary localized osteoarthritis of hips, bilateral Pain worse and continue medication. Follow with ortho. * Ken Larry MD - 05/12/2024 9:25 AM ESTAssociated Problem(s): Generalized anxiety disorder (CMS/HCC) Symptoms stable and continue prozac. * Ken Larry MD - 05/12/2024 9:25 AM ESTAssociated Problem(s): Essential hypertension, benign (CMS/HCC) BP elevated due to pain but previously controlled and monitor PRN. * Ken Larry MD - 05/12/2024 9:25 AM ESTAssociated Problem(s): DDD (degenerative disc disease), lumbar Pain worse and continue medication. Follow with ortho. * Ken Larry MD - 05/12/2024 9:25 AM ESTAssociated Problem(s): Class 3 severe obesity due to excess calories without serious comorbidity with body mass index (BMI) of 40.0 to 44.9 in adult ([facility]) Weight loss indicated. * Ken Larry MD - 05/12/2024 8:45 AM EST Images from the original note were not included. Subjective Patient ID: Danuta Banegas is a 59 y.o. female who presents for Follow-up (1M). Follow up HTN, pain, and anxiety. Checking BP PRN and recently elevated. BP slightly elevated todaybut pain worse. Taking medication daily and tolerating without side effects. Continued pain in right hip and low back. Pain deep in groin and in hip. Pain worse with walking and standing. Pain to sitprolonged and hard to ride in car. To ER 05/03 and given toradol and dilaudid. Seen by ortho in November and MRI showed OA but no tear. Follow up scheduled 05/27. Anxiety stable. Not as stressed out or overwhelmed. Not as nervous or worry as much. Not as aparicio or irritable. Review of Systems Respiratory: Negative for cough, [...] Assessment/Plan Problem List Items Addressed This Visit Class 3 severe obesity due to excess calories without serious comorbidity with body mass index (BMI) of 40.0 to 44.9 in adult (CMS/HCC) Weight loss indicated. Essential hypertension, benign (CMS/HCC) BP elevated due to pain but previously controlled and monitor PRN. Generalized anxiety disorder (CMS/HCC) Symptoms stable and continue prozac. Primary localized osteoarthritis of hips, bilateral - Primary Pain worse and continue medication. Follow with ortho. DDD (degenerative disc disease), lumbar Pain worse and continue medication. Follow with ortho. documented in this encounterBoone Hospital [id number] Hospital Discharge instructions Additional Instructions Sitting on a doughnut pillow/airplane pillow may be beneficial in comfort Ice to affected area Relafen instead of your Motrin for discomfort You could also rotate Tylenol Your [place] as provided at home could be taken every 4-6 hours 1-2 tabs Your Zanaflex which is the muscle relaxers can be taken up to 3 times a day Continue your gabapentin Follow-up with your PCP Please return if any problems persist or worsen Monitor your blood pressure readings at home Follow-up with Ortho and see if they have any cancellations or you can get an earlier appointment besides may to go over your MRI results Apply lidocaine patches as directed [facility] Work Phone: [phone] History of Present illness Narrative* Ken Larry MD - 04/16/2024 8:36 AM ESTAssociated Problem(s): Generalized anxiety disorder ([facility]) Symptoms stable and continue prozac. * Ken Larry MD - 04/16/2024 8:36 AM ESTAssociated Problem(s): Fibromyalgia syndrome Worsening pain and treat with prednisone. Increase neurontin to BID and add elavil. * Ken Larry MD - 04/16/2024 8:36 AM ESTAssociated Problem(s): Essential hypertension, benign ([facility]) BP elevated but previously controlled and monitor PRN. * Ken Larry MD - 04/16/2024 8:35 AM ESTAssociated Problem(s): Class 3 severe obesity due to excess calories without serious comorbidity with body mass index (BMI) of 40.0 to 44.9 in adult ([facility]) Weight loss indicated. * Ken Larry MD - 04/16/2024 7:45 AM EST Images from the original note were not included. Subjective Patient ID: Danuta Banegas is a 59 y.o. female who presents [...] tablet amitriptyline (Elavil) 25 MG tablet HYDROcodone-acetaminophen ([place]) 5-325 MG tablet predniSONE (Deltasone) 10 MG tablet Class 3 severe obesity due to excess calories without serious comorbidity with body mass index (BMI) of 40.0 to 44.9 in adult (CMS/HCC) Weight loss indicated. Relevant Orders TSH W/REFLEX TO FT4 Essential hypertension, benign (CMS/HCC) - Primary BP elevated but previously controlled and monitor PRN. Generalized anxiety disorder (CMS/HCC) Symptoms stable and continue prozac. Arthralgia Relevant Orders Sedimentation rate, automated C-reactive protein KRISTIN Rheumatoid factor Uric acid Encounter for long-term (current) use of medications Relevant Orders Basic metabolic panel CBC and differential documented in this encounterNOMS [id number] Telephone encounter Note* Telephone Encounter - Ken Larry MD - 04/04/2024 12:25 PM EST [facility] [id number] Miscellaneous Notes* Telephone Encounter - Ken Larry MD - 04/04/2024 12:25 PM EST documented in this encounterBoone Hospital [id number] History of Present illness Narrative* Ken Larry MD - 03/25/2024 10:54 AM ESTAssociated Problem(s): Class 3 severe obesity due to excess calories without serious comorbidity with body mass index (BMI) of 40.0 to 44.9 in adult ([facility]) Weight loss indicated. * Ken Larry MD - 03/25/2024 10:52 AM ESTAssociated Problem(s): Acute bronchitis due to other specified organisms Take antibiotics for 7 days. Use prednisone for inflammation. Use sudafed or other decongestants asneeded. Use Robitussin or Robitussin-DM for cough. Can use afrin for congestion but no longer than 3 days. Can use Mucinex to bring up phlegm. Use Motrin or Tylenol as needed for fever, aches, or pains. Increase fluid intake and rest. Should improve over next 5-7 days and if no better or worse callfor re-evaluation. * Ken Larry MD - 03/25/2024 10:15 AM EST Images from the original note were not included. Subjective Patient ID: Danuta Banegas is a 58 y.o. female who presents for Cough and Hip Pain (Right hip downleg). C/o cough, congestion, and rhinorrhea for almost 3 weeks. Afebrile. Severe fatigue and no energy. Frequent cough productive green sputum. Chest tight and SOB. PLUNKETT and sinus pressure in forehead and cheeks along with postnasal drip. Ears plugged and popping. Sore throat and pain to swallow. Mild nausea. Grandson recently sick. Using OTC medication and mild relief. Started cefdinir 1/2 and seemed tohelp then symptoms worsened. No improvement in symptoms [...] for inflammation. Use sudafed or other decongestants asneeded. Use Robitussin or Robitussin-DM for cough. Can use afrin for congestion but no longer than 3 days. Can use Mucinex to bring up phlegm. Use Motrin or Tylenol as needed for fever, aches, or pains. Increase fluid intake and rest. Should improve over next 5-7 days and if no better or worse callfor re-evaluation. Relevant Medications levoFLOXacin (Levaquin) 750 MG tablet predniSONE (Deltasone) 50 MG tablet albuterol HFA 90 mcg/act inhaler benzonatate (Tessalon) 200 MG capsule documented in this encounterBoone Hospital [id number] Telephone encounter Note* Telephone Encounter - Teresa Fischer - 03/13/2024 1:37 PM EST Patient called been sick since [place], cough, sore throat, congestion. Would like something called in. an [facility] [id number] Miscellaneous Notes* Telephone Encounter - Teresa Qiuon - 03/13/2024 1:37 PM EST Patient called been sick since [place], cough, sore throat, congestion. Would like something called in. an documented in this encounterBoone Hospital [id number] History of Present illness Narrative* Ken Larry MD - 01/07/2024 2:46 PM EDTAssociated Problem(s): Class 3 severe obesity without serious comorbidity with body mass index (BMI) of 40.0 to 44.9 in adult (CMS/HCC) Discussed proper diet and regular aerobic exercise. Recommend Weight Watchers and need to limit calories and smaller portions. Need to increase activity and regular aerobic exercise several days a week for 30 minutes at a time. * Ken Larry MD - 01/07/2024 2:44 PM EDTAssociated Problem(s): Fibromyalgia syndrome Pain unchanged and use celebrex PRN. Add norco PRN. * Ken Larry MD - 01/07/2024 2:43 PM EDTAssociated Problem(s): Essential hypertension, benign (CMS/HCC) BP controlled and monitor PRN. * Ken Larry MD - 01/07/2024 2:43 PM EDTAssociated Problem(s): Annual physical exam Reviewed labs. Discussed proper diet and regular aerobic exercise. Need aerobic exercise 5-6 days aweek for 30 minutes at a time. Smaller portions and limit total calories. Cologuard normal in July 2023. Tetanus every 10 years. Advised not to smoke. Discussed daily Aspirin therapy. * Ken Larry MD - 01/07/2024 2:15 PM EDT Images from the original note were not included. Subjective Patient ID: Danuta Banegas is a 58 y.o. female who presents for Follow-up (6m ) and Cough. Presents for annual PE. Patient feels well today. Weight unchanged over the past year. Active at work but no regular exercise or activity. Tries to watch diet and eat healthy. Increased fruits and vegetables. Smaller portions and limits snacking. Tries to limit total daily calories. Reviewed recentlabs. Checking BP PRN and typically controlled. BP [...] PRN. Add norco PRN. Relevant Medications HYDROcodone-acetaminophen ([place]) 5-325 MG tablet Essential hypertension, benign (CMS/HCC) BP controlled and monitor PRN. Annual physical exam - Primary Reviewed labs. Discussed proper diet and regular aerobic exercise. Need aerobic exercise 5-6 days aweek for 30 minutes at a time. Smaller portions and limit total calories. Cologuard normal in July 2023. Tetanus every 10 years. Advised not to smoke. Discussed daily Aspirin therapy. documented in this encounterBoone Hospital [id number] History of Present illness Narrative* Encounter Date Complaint History Of Prese nt Illness New Problem Right Hip The elham garner is a pleasant 58-year-old female presenting today [...] injury, fall, fever, chills, numbness or tingling. 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 No other reported concerns or problems. Patient radiographically has healed her fracture. 01/12/23 Danuta Banegas is a 57 y.o. female 10 days [...] volar tilt and radial inclination Assessment/Plan Danuta Banegas is a 57 y.o. female s/p ORIF, FRACTURE, WRIST, distal - Left (01/02/2023). -Patient has made great progress following her surgery, do not believe she will need any formal therapy as she is regained significant range of motion. Radiographic findings show her fracture has healed and no concerns for any hardware pullout. Patient can follow-up as needed Umberto Barrientos, Orthopedic Surgery, PGY1 Ortho Pager [phone] 02/08/23 2:49 PM I am available via [employer] 6a-6p. May contact the on-call resident with [...] may be an additional personal documentation from me.[facility]11-03-2023 Note Attestation signed by Otto George [...] FRACTURE, WRIST, distal - Left 01/12/23 Danuta Banegas is a 57 y.o. female 10 days [...] refill Imaging None taken today Assessment/Plan Danuta Banegas is a 57 y.o. female s/p ORIF, [...] may be an additional personal documentation from me.[facility]10-25-2023 NoteSpoke with patient regarding her recent [...] if any questions/concerns arise in the meantime. [facility]10-24-2023 NotePatient: Danuta Banegas Procedure Summary Date: 01/02/23 Room / Location: [facility] OR [address] [place] [address] [facility] OR Anesthesia Start: 1218 Anesthesia Stop: 1350 Procedure: ORIF, FRACTURE, WRIST, distal (Left: Wrist) Diagnosis: Open fracture of right wrist, initial encounter (Open fracture of right wrist, initial encounter [S62.101B]) Surgeons: Otto George MD Responsible Provider: Mary Duenas MD Anesthesia Type: regional ASA Status: 3 Anesthesia Type: regional [id number] Value Taken Time BP 184/83 01/02/23 1422 [...] PACU per anesthesia protocol. No notable events documented.[facility]10-24-2023 Note Peripheral Block Patient location during [...] ultrasound Paresthesia pain: none Heart rate change: [facility]10-24-2023 NotePatient: Danuta Banegas Procedure Information Date/Time: 01/02/23 1215 Procedure: ORIF, FRACTURE, WRIST, distal (Left: Wrist) - C-arm, Synthes NOTIFIED 12/29 Location: [facility] OR [address] [place] [address] OR Surgeons: Otto George MD Past Medical [...] risks discussed with patient. Plan discussed with SSIS SSRS DEVELOPER. Additional Equipment RequestsSt. Elizabeth Hospital10-20-2023 Note Attestation signed by Otto George [...] Wrist (ED follow up ) 12/29/22 Danuta Banegas is a 57 y.o. year old female [...] gabapentin (NEURONTIN) 600 mg, oral, Nightly HYDROcodone-acetaminophen ([place]) 5-325 mg tablet 1 tablet, oral, Every [...] Psych: Appropriate mood behavior Left Upper Extremity: Jzjfoqvrjv-yukto-jjhn splint in place without any damage ROM Left hand digits: full AROM and PROM with pain at extremes of thumb ROM Strength: business control manager 5/5, thumb 5/5, interossei 5/5 Sensation: intact over median, ulnar, and radial nerve distributions Cardiovascular: Well-perfused digits Imaging personally reviewed and our interpretation: XR Left wrist shows a reduced distal radius fracture with comminution and neutral alignment Assessment/Plan Danuta Banegas is a 57 y.o. year old female [...] dry. Renetta Kinsey MD Orthopaedic Surgery PGY-1 [facility] 12/29/22 10:57 AMSt. [facility] Hospital10-18-2023 NoteOrthopedic Surgery Procedure Note: Pre-Procedure Diagnosis: [...] Priest II MD Orthopedic Surgery Resident, PGY-3 12/26/2022[facility]10-18-2023 NoteORTHOPEDIC SURGERY CONSULTATION CHIEF COMPLAINT: Left distal radius fracture HPI: Danuta Banegas is a 57 y.o. xeex-yjwo-kojwygrp female with complaint of pain in left wrist after a fall. Pain began after she fell earlier this evening, patient sate she had uneven ground and just lost her footing. She has known low vitamin D and is on 2000 units per her PCP. They presented to the [facility] Emergency Department where x-rays were obtained which [...] for this encounter. Current Outpatient Medications: HYDROcodone-acetaminophen ([place]) 5-325 mg tablet, Take 1 tablet by [...] reduced, comminuted distal radius fracture Assessment: Danuta Banegas is a 57 y.o.female with Left displaced [...] with Dr. Jett (more content not included)... [facility]10-10-2022 NotePROCEDURE: XR FOOT RT MIN 3 VIEWS HISTORY: Pain in right foot ; acute anterior foot pain for 3 weeks COMPARISON: None. FINDINGS: BONES:No fracture, acute abnormality, or significant arthropathy. SOFT TISSUES:No visible soft tissue swelling. EFFUSION:None visible. OTHER: Negative. IMPRESSION: 1. No acute bone abnormality or significant degenerative changes. Electronically authenticated by: YARITZA LEMONS Date: 2021-12-19 16:30[facility] note* Clinical Note Date No Information [facility] Work Phone: Discharge summary* Clinical Note Date No Information [facility] Work Phone: Evaluation note* Diagnosis Breast cancer [...] Type Assessment Date No Information [facility] Work Phone: Evaluation note* Diagnosis Breast cancer [...] Primary Routine general medical examination at a [facility] care facility Essential hypertension, benign (CMS/HCC) Essential hypertension, benign Fibromyalgia syndrome Unspecified myalgia and myositis Fibromyalgia syndrome Unspecified myalgia and myositis documented in this encounter [facility]* Diagnosis Breast cancer screening by mammogram- Primary Annual physical exam Routine general medical examination at a [facility] care facility Vitamin D deficiency Essential hypertension, benign (CMS/HCC) Essential hypertension, benign Fibromyalgia syndrome Unspecified myalgia and myositis Generalized anxiety disorder (CMS/HCC) Generalized anxiety disorder Acute non-recurrent pansinusitis Annual physical exam- Primary Routine general medical examination at a [facility] care facility Essential hypertension, benign (CMS/HCC) Essential [...] (BMI) of 40.0 to 44.9 in adult ([facility]/HCC) Fibromyalgia syndrome Unspecified myalgia and myositis documented in this encounter [facility] HealthcareEvaluation note* Diagnosis Breast cancer screening by [...] (BMI) of 40.0 to 44.9 in adult ([facility]) Fibromyalgia syndrome Unspecified myalgia and myositis documented in this encounter [facility] HealthcareEvaluation note* Diagnosis Breast cancer screening by [...] (BMI) of 40.0 to 44.9 in adult ([facility]) Chronic pain syndrome documented in this encounter [facility] HealthcareEvaluation note* Diagnosis Breast cancer screening by [...] (BMI) of 40.0 to 44.9 in adult ([facility]) Essential hypertension, benign ([facility]/HCC)- Primary Essential hypertension, benign Fibromyalgia syndrome Unspecified myalgia and myositis Generalized anxiety disorder ([facility]/HCC) Generalized anxiety disorder Arthralgia, unspecified joint Class 3 severe obesity due to excess calories without serious comorbidity with body mass index (BMI) of 40.0 to 44.9 in adult ([facility]) Encounter for long-term (current) use of medications Encounter for long-term (current) use of other medications documented in this encounter [facility] HealthcareEvaluation noteNo assessment information available[facility] Work Phone: Evaluation note* Diagnosis Breast cancer screening by mammogram- Primary Annual physical exam Routine general medical examination at a health care facility Vitamin D deficiency Essential hypertension, benign ([facility]) Essential hypertension, benign Fibromyalgia syndrome Unspecified myalgia and myositis Generalized anxiety disorder ([facility]/HCC) Generalized anxiety disorder Acute non-recurrent pansinusitis Annual physical exam- Primary Routine general medical examination at a health care facility Essential hypertension, benign (CMS/HCC) Essential hypertension, benign Fibromyalgia syndrome Unspecified myalgia and myositis Acute bronchitis due to other specified organisms- Primary Class 3 severe obesity due to excess calories without serious comorbidity with body mass index (BMI) of 40.0 to 44.9 in adult ([facility]) Essential hypertension, benign ([facility]/HCC)- Primary Essential hypertension, benign Fibromyalgia syndrome Unspecified myalgia and myositis Generalized anxiety disorder ([facility]/HCC) Generalized anxiety disorder Arthralgia, unspecified joint Class 3 severe obesity due to excess calories without serious comorbidity with body mass index (BMI) of 40.0 to 44.9 in adult ([facility]) Encounter for long-term (current) use of medications Encounter for long-term (current) use of other medications Fibromyalgia syndrome Unspecified myalgia and myositis documented in this encounter [facility] HealthcareEvaluation note* Diagnosis Breast cancer screening by mammogram- Primary Annual physical exam Routine general medical examination at a health care facility Vitamin D deficiency Essential hypertension, benign (CMS/HCC) Essential hypertension, benign Fibromyalgia syndrome Unspecified myalgia and myositis Generalized anxiety disorder ([facility]/HCC) Generalized anxiety disorder Acute non-recurrent pansinusitis Annual physical exam- Primary Routine general medical examination at a health care facility Essential hypertension, benign (CMS/HCC) Essential hypertension, benign Fibromyalgia syndrome Unspecified myalgia and myositis Acute bronchitis due to other specified organisms- Primary Class 3 severe obesity due to excess calories without serious comorbidity with body mass index (BMI) of 40.0 to 44.9 in adult ([facility]) Essential hypertension, benign ([facility])- Primary Essential hypertension, benign Fibromyalgia syndrome Unspecified myalgia and myositis Generalized anxiety disorder ([facility]) Generalized anxiety disorder Arthralgia, unspecified joint Class 3 severe obesity due to excess calories without serious comorbidity with body mass index (BMI) of 40.0 to 44.9 in adult ([facility]) Encounter for long-term (current) use of medications Encounter for long-term (current) use of other medications Primary localized osteoarthritis of hips, bilateral- Primary Degeneration of intervertebral disc of lumbar region with discogenic back pain and lower extremity pain Essential hypertension, benign ([facility]) Essential hypertension, benign Generalized anxiety disorder ([facility]) Generalized anxiety disorder Class 3 severe obesity due to excess calories without serious comorbidity with body mass index (BMI) of 40.0 to 44.9 in adult ([facility]) documented in this encounter [facility] HealthcareEvaluation note* Diagnosis Breast cancer screening by mammogram- Primary Annual physical exam Routine general medical examination at a health care facility Vitamin D deficiency Essential hypertension, benign ([facility]) Essential hypertension, benign Fibromyalgia syndrome Unspecified myalgia and myositis Generalized anxiety disorder ([facility]) Generalized anxiety disorder Acute non-recurrent pansinusitis Annual physical exam- Primary Routine general medical examination at a health care facility Essential hypertension, benign ([facility]) Essential hypertension, benign Fibromyalgia syndrome Unspecified myalgia and myositis Acute bronchitis due to other specified organisms- Primary Class 3 severe obesity due to excess calories without serious comorbidity with body mass index (BMI) of 40.0 to 44.9 in adult Essential hypertension, benign ([facility]/HCC)- Primary Essential hypertension, benign Fibromyalgia syndrome Unspecified myalgia and myositis Generalized anxiety disorder ([facility]/HCC) Generalized anxiety disorder Arthralgia, unspecified joint Class 3 severe obesity due to excess calories without serious comorbidity with body mass index (BMI) of 40.0 to 44.9 in adult Encounter for long-term (current) use of medications Encounter for long-term (current) use of other medications Primary localized osteoarthritis of hips, bilateral- Primary Degeneration of intervertebral disc of lumbar region with discogenic back pain and lower extremity pain Essential hypertension, benign (CMS/HCC) Essential hypertension, benign Generalized anxiety disorder (CMS/HCC) Generalized anxiety disorder Class 3 severe obesity due to excess calories without serious comorbidity with body mass index (BMI) of 40.0 to 44.9 in adult Fibromyalgia syndrome Unspecified myalgia and myositis documented in this encounter [facility] HealthcareEvaluation note* Diagnosis Breast cancer screening by [...] (BMI) of 40.0 to 44.9 in adult Essential hypertension, benign (CMS/HCC)- Primary Essential hypertension, benign Fibromyalgia syndrome Unspecified myalgia and myositis Generalized anxiety disorder (CMS/HCC) Generalized anxiety disorder Arthralgia, unspecified joint Class 3 severe obesity due to excess calories without serious comorbidity with body mass index (BMI) of 40.0 to 44.9 in adult Encounter for long-term (current) use of medications Encounter for long-term (current) use of other medications Primary localized osteoarthritis of hips, bilateral- Primary Degeneration of intervertebral disc of lumbar region with discogenic back pain and lower extremity pain Essential hypertension, benign (CMS/HCC) Essential hypertension, benign Generalized anxiety disorder (CMS/HCC) Generalized anxiety disorder Class 3 severe obesity due to excess calories without serious comorbidity with body mass index (BMI) of 40.0 to 44.9 in adult Essential hypertension, benign (CMS/HCC)- Primary Essential hypertension, benign Generalized anxiety disorder (CMS/HCC) Generalized anxiety disorder Primary localized osteoarthritis of hips, bilateral Degeneration of intervertebral disc of lumbar region with discogenic back pain and lower extremity pain Fibromyalgia syndrome Unspecified myalgia and myositis documented in this encounter [facility] HealthcareEvaluation note* Diagnosis Breast cancer screening by [...] (BMI) of 40.0 to 44.9 in adult Essential hypertension, benign (CMS/HCC)- Primary Essential hypertension, benign Fibromyalgia syndrome Unspecified myalgia and myositis Generalized anxiety disorder (CMS/HCC) Generalized anxiety disorder Arthralgia, unspecified joint Class 3 severe obesity due to excess calories without serious comorbidity with body mass index (BMI) of 40.0 to 44.9 in adult Encounter for long-term (current) use of medications Encounter for long-term (current) use of other medications Primary localized osteoarthritis of hips, bilateral- Primary Degeneration of intervertebral disc of lumbar region with discogenic back pain and lower extremity pain Essential hypertension, benign (CMS/HCC) Essential hypertension, benign Generalized anxiety disorder (CMS/HCC) Generalized anxiety disorder Class 3 severe obesity due to excess calories without serious comorbidity with body mass index (BMI) of 40.0 to 44.9 in adult Essential hypertension, benign (CMS/HCC)- Primary Essential hypertension, benign Generalized anxiety disorder (CMS/HCC) Generalized anxiety disorder Primary localized osteoarthritis of hips, bilateral Degeneration of intervertebral disc of lumbar region with discogenic back pain and lower extremity pain Fibromyalgia syndrome Unspecified myalgia and myositis Other specified joint disorders, right hip- Primary Primary localized osteoarthritis of hips, bilateral Pain of right hip joint documented in this encounter [facility] HealthcareEvaluation note* Diagnosis Breast cancer screening by mammogram- Primary Annual physical exam Routine general medical examination at a [facility] care facility Vitamin D deficiency Essential hypertension, [...] (BMI) of 40.0 to 44.9 in adult Essential hypertension, benign (CMS/HCC)- Primary Essential hypertension, benign Fibromyalgia syndrome Unspecified myalgia and myositis Generalized anxiety disorder (CMS/HCC) Generalized anxiety disorder Arthralgia, unspecified joint Class 3 severe obesity due to excess calories without serious comorbidity with body mass index (BMI) of 40.0 to 44.9 in adult Encounter for long-term (current) use of medications Encounter for long-term (current) use of other medications Primary localized osteoarthritis of hips, bilateral- Primary Degeneration of intervertebral disc of lumbar region with discogenic back pain and lower extremity pain Essential hypertension, benign (CMS/HCC) Essential hypertension, benign Generalized anxiety disorder (CMS/HCC) Generalized anxiety disorder Class 3 severe obesity due to excess calories without serious comorbidity with body mass index (BMI) of 40.0 to 44.9 in adult Essential hypertension, benign (CMS/HCC)- Primary Essential hypertension, benign Generalized anxiety disorder (CMS/HCC) Generalized anxiety disorder Primary localized osteoarthritis of hips, bilateral Degeneration of intervertebral disc of lumbar region with discogenic back pain and lower extremity pain Fibromyalgia syndrome Unspecified myalgia and myositis Other specified joint disorders, right hip- Primary Primary localized osteoarthritis of hips, bilateral Pain of right hip joint documented in this encounter [facility]* [...] (BMI) of 40.0 to 44.9 in adult Essential hypertension, benign (CMS/HCC)- Primary Essential hypertension, benign Fibromyalgia syndrome Unspecified myalgia and myositis Generalized anxiety disorder (CMS/HCC) Generalized anxiety disorder Arthralgia, unspecified joint Class 3 severe obesity due to excess calories without serious comorbidity with body mass index (BMI) of 40.0 to 44.9 in adult Encounter for long-term (current) use of medications Encounter for long-term (current) use of other medications Primary localized osteoarthritis of hips, bilateral- Primary Degeneration of intervertebral disc of lumbar region with discogenic back pain and lower extremity pain Essential hypertension, benign (CMS/HCC) Essential hypertension, benign Generalized anxiety disorder (CMS/HCC) Generalized anxiety disorder Class 3 severe obesity due to excess calories without serious comorbidity with body mass index (BMI) of 40.0 to 44.9 in adult Essential hypertension, benign (CMS/HCC)- Primary Essential hypertension, benign Generalized anxiety disorder (CMS/HCC) Generalized anxiety disorder Primary localized osteoarthritis of hips, bilateral Degeneration of intervertebral disc of lumbar region with discogenic back pain and lower extremity pain Fibromyalgia syndrome Unspecified myalgia and myositis Other specified joint disorders, right hip- Primary Primary localized osteoarthritis of hips, bilateral Pain of right hip joint documented in this encounter [facility] HealthcareEvaluation note* Diagnosis Breast cancer screening by [...] (BMI) of 40.0 to 44.9 in adult Essential hypertension, benign (CMS/HCC)- Primary Essential hypertension, benign Fibromyalgia syndrome Unspecified myalgia and myositis Generalized anxiety disorder (CMS/HCC) Generalized anxiety disorder Arthralgia, unspecified joint Class 3 severe obesity due to excess calories without serious comorbidity with body mass index (BMI) of 40.0 to 44.9 in adult Encounter for long-term (current) use of medications Encounter for long-term (current) use of other medications Primary localized osteoarthritis of hips, bilateral- Primary Degeneration of intervertebral disc of lumbar region with discogenic back pain and lower extremity pain Essential hypertension, benign (CMS/HCC) Essential hypertension, benign Generalized anxiety disorder (CMS/HCC) Generalized anxiety disorder Class 3 severe obesity due to excess calories without serious comorbidity with body mass index (BMI) of 40.0 to 44.9 in adult Essential hypertension, benign (CMS/HCC)- Primary Essential hypertension, benign Generalized anxiety disorder (CMS/HCC) Generalized anxiety disorder Primary localized osteoarthritis of hips, bilateral Degeneration of intervertebral disc of lumbar region with discogenic back pain and lower extremity pain Fibromyalgia syndrome Unspecified myalgia and myositis Fibromyalgia syndrome Unspecified myalgia and myositis documented in this encounter [facility] HealthcareEvaluation note* Diagnosis Breast cancer screening by [...] (BMI) of 40.0 to 44.9 in adult Essential hypertension, benign (CMS/HCC)- Primary Essential hypertension, benign Fibromyalgia syndrome Unspecified myalgia and myositis Generalized anxiety disorder (CMS/HCC) Generalized anxiety disorder Arthralgia, unspecified joint Class 3 severe obesity due to excess calories without serious comorbidity with body mass index (BMI) of 40.0 to 44.9 in adult Encounter for long-term (current) use of medications Encounter for long-term (current) use of other medications Primary localized osteoarthritis of hips, bilateral- Primary Degeneration of intervertebral disc of lumbar region with discogenic back pain and lower extremity pain Essential hypertension, benign (CMS/HCC) Essential hypertension, benign Generalized anxiety disorder (CMS/HCC) Generalized anxiety disorder Class 3 severe obesity due to excess calories without serious comorbidity with body mass index (BMI) of 40.0 to 44.9 in adult Essential hypertension, benign (CMS/HCC)- Primary Essential hypertension, benign Generalized anxiety disorder (CMS/HCC) Generalized anxiety disorder Primary localized osteoarthritis of hips, bilateral Degeneration of intervertebral disc of lumbar region with discogenic back pain and lower extremity pain Fibromyalgia syndrome Unspecified myalgia and myositis Other specified joint disorders, right hip- Primary Primary localized osteoarthritis of hips, bilateral Pain of right hip joint documented in this encounter [facility] HealthcareEvaluation note* Diagnosis Breast cancer screening by mammogram- Primary Annual physical exam Routine general medical examination at a health care facility Vitamin D deficiency Essential hypertension, benign Essential hypertension, benign Fibromyalgia syndrome Unspecified myalgia and myositis Generalized anxiety disorder Generalized anxiety disorder Acute non-recurrent pansinusitis Annual physical exam- Primary Routine general medical examination at a [facility] care facility Essential hypertension, benign Essential hypertension, benign Fibromyalgia syndrome Unspecified myalgia and myositis Acute bronchitis due to other specified organisms- Primary Class 3 severe obesity due to excess calories without serious comorbidity with body mass index (BMI) of 40.0 to 44.9 in adult ([facility]) Essential hypertension, benign- Primary Essential hypertension, benign Fibromyalgia syndrome Unspecified myalgia and myositis Generalized anxiety disorder Generalized anxiety disorder Arthralgia, unspecified joint Class 3 severe obesity due to excess calories without serious comorbidity with body mass index (BMI) of 40.0 to 44.9 in adult ([facility]) Encounter for long-term (current) use of medications Encounter for long-term (current) use of other medications Primary localized osteoarthritis of hips, bilateral- Primary Degeneration of intervertebral disc of lumbar region with discogenic back pain and lower extremity pain Essential hypertension, benign Essential hypertension, benign Generalized anxiety disorder Generalized anxiety disorder Class 3 severe obesity due to excess calories without serious comorbidity with body mass index (BMI) of 40.0 to 44.9 in adult ([facility]) Essential hypertension, benign- Primary Essential hypertension, benign Generalized anxiety disorder Generalized anxiety disorder Primary localized osteoarthritis of hips, bilateral Degeneration of intervertebral disc of lumbar region with discogenic back pain and lower extremity pain Fibromyalgia syndrome Unspecified myalgia and myositis Other specified joint disorders, right hip- Primary Primary localized osteoarthritis of hips, bilateral Pain of right hip joint documented in this encounter [facility] HealthcareEvaluation note* Diagnosis Breast cancer screening by mammogram- Primary Annual physical exam Routine general medical examination at a health care facility Vitamin D deficiency Essential hypertension, benign Essential hypertension, benign Fibromyalgia syndrome Unspecified myalgia and myositis Generalized anxiety disorder Generalized anxiety disorder Acute non-recurrent pansinusitis Annual physical exam- Primary Routine general medical examination at a health care facility Essential hypertension, benign Essential hypertension, benign Fibromyalgia syndrome Unspecified myalgia and myositis Acute bronchitis due to other specified organisms- Primary Class 3 severe obesity due to excess calories without serious comorbidity with body mass index (BMI) of 40.0 to 44.9 in adult ([facility]) Essential hypertension, benign- Primary Essential hypertension, benign Fibromyalgia syndrome Unspecified myalgia and myositis Generalized anxiety disorder Generalized anxiety disorder Arthralgia, unspecified joint Class 3 severe obesity due to excess calories without serious comorbidity with body mass index (BMI) of 40.0 to 44.9 in adult ([facility]) Encounter for long-term (current) use of medications Encounter for long-term (current) use of other medications Primary localized osteoarthritis of hips, bilateral- Primary Degeneration of intervertebral disc of lumbar region with discogenic back pain and lower extremity pain Essential hypertension, benign Essential hypertension, benign Generalized anxiety disorder Generalized anxiety disorder Class 3 severe obesity due to excess calories without serious comorbidity with body mass index (BMI) of 40.0 to 44.9 in adult ([facility]) Essential hypertension, benign- Primary Essential hypertension, benign Generalized anxiety disorder Generalized anxiety disorder Primary localized osteoarthritis of hips, bilateral Degeneration of intervertebral disc of lumbar region with discogenic back pain and lower extremity pain Fibromyalgia syndrome Unspecified myalgia and myositis Other specified joint disorders, right hip- Primary Primary localized osteoarthritis of hips, bilateral Pain of right hip joint documented in this encounter [facility] HealthcareEvaluation note* Diagnosis Breast cancer screening by mammogram- Primary Annual physical exam Routine general medical examination at a health care facility Vitamin D deficiency Essential hypertension, benign Essential hypertension, benign Fibromyalgia syndrome Unspecified myalgia and myositis Generalized anxiety disorder Generalized anxiety disorder Acute non-recurrent pansinusitis Annual physical exam- Primary Routine general medical examination at a health care facility Essential hypertension, benign Essential hypertension, benign Fibromyalgia syndrome Unspecified myalgia and myositis Acute bronchitis due to other specified organisms- Primary Class 3 severe obesity due to excess calories without serious comorbidity with body mass index (BMI) of 40.0 to 44.9 in adult ([facility]) Essential hypertension, benign- Primary Essential hypertension, benign Fibromyalgia syndrome Unspecified myalgia and myositis Generalized anxiety disorder Generalized anxiety disorder Arthralgia, unspecified joint Class 3 severe obesity due to excess calories without serious comorbidity with body mass index (BMI) of 40.0 to 44.9 in adult ([facility]) Encounter for long-term (current) use of medications Encounter for long-term (current) use of other medications Primary localized osteoarthritis of hips, bilateral- Primary Degeneration of intervertebral disc of lumbar region with discogenic back pain and lower extremity pain Essential hypertension, benign Essential hypertension, benign Generalized anxiety disorder Generalized anxiety disorder Class 3 severe obesity due to excess calories without serious comorbidity with body mass index (BMI) of 40.0 to 44.9 in adult ([facility]) Essential hypertension, benign- Primary Essential hypertension, benign Generalized anxiety disorder Generalized anxiety disorder Primary localized osteoarthritis of hips, bilateral Degeneration of intervertebral disc of lumbar region with discogenic back pain and lower extremity pain Fibromyalgia syndrome Unspecified myalgia and myositis Degenerative lumbar spinal stenosis- Primary Spinal stenosis of lumbar region Pain of right hip joint Neck pain Cervicalgia Acute pain of left wrist documented in this encounter [facility] HealthcareEvaluation note* Diagnosis Breast cancer screening by mammogram- Primary Annual physical exam Routine general medical examination at a health care facility Vitamin D deficiency Essential hypertension, benign Essential hypertension, benign Fibromyalgia syndrome Unspecified myalgia and myositis Generalized anxiety disorder Generalized anxiety disorder Acute non-recurrent pansinusitis Annual physical exam- Primary Routine general medical examination at a health care facility Essential hypertension, benign Essential hypertension, benign Fibromyalgia syndrome Unspecified myalgia and myositis Acute bronchitis due to other specified organisms- Primary Class 3 severe obesity due to excess calories without serious comorbidity with body mass index (BMI) of 40.0 to 44.9 in adult ([facility]) Essential hypertension, benign- Primary Essential hypertension, benign Fibromyalgia syndrome Unspecified myalgia and myositis Generalized anxiety disorder Generalized anxiety disorder Arthralgia, unspecified joint Class 3 severe obesity due to excess calories without serious comorbidity with body mass index (BMI) of 40.0 to 44.9 in adult ([facility]) Encounter for long-term (current) use of medications Encounter for long-term (current) use of other medications Primary localized osteoarthritis of hips, bilateral- Primary Degeneration of intervertebral disc of lumbar region with discogenic back pain and lower extremity pain Essential hypertension, benign Essential hypertension, benign Generalized anxiety disorder Generalized anxiety disorder Class 3 severe obesity due to excess calories without serious comorbidity with body mass index (BMI) of 40.0 to 44.9 in adult ([facility]) Essential hypertension, benign- Primary Essential hypertension, benign Generalized anxiety disorder Generalized anxiety disorder Primary localized osteoarthritis of hips, bilateral Degeneration of intervertebral disc of lumbar region with discogenic back pain and lower extremity pain Fibromyalgia syndrome Unspecified myalgia and myositis Other specified joint disorders, right hip- Primary Primary localized osteoarthritis of hips, bilateral Pain of right hip joint Degenerative lumbar spinal stenosis- Primary Spinal stenosis of lumbar region Pain of right hip joint Neck pain Cervicalgia Acute pain of left wrist documented in this encounter [facility] HealthcareEvaluation note* Diagnosis Breast cancer screening by mammogram- Primary Annual physical exam Routine general medical examination at a health care facility Vitamin D deficiency Essential hypertension, benign Essential hypertension, benign Fibromyalgia syndrome Unspecified myalgia and myositis Generalized anxiety disorder Generalized anxiety disorder Acute non-recurrent pansinusitis Annual physical exam- Primary Routine general medical examination at a health care facility Essential hypertension, benign Essential hypertension, benign Fibromyalgia syndrome Unspecified myalgia and myositis Acute bronchitis due to other specified organisms- Primary Class 3 severe obesity due to excess calories without serious comorbidity with body mass index (BMI) of 40.0 to 44.9 in adult ([facility]) Essential hypertension, benign- Primary Essential hypertension, benign Fibromyalgia syndrome Unspecified myalgia and myositis Generalized anxiety disorder Generalized anxiety disorder Arthralgia, unspecified joint Class 3 severe obesity due to excess calories without serious comorbidity with body mass index (BMI) of 40.0 to 44.9 in adult ([facility]) Encounter for long-term (current) use of medications Encounter for long-term (current) use of other medications Primary localized osteoarthritis of hips, bilateral- Primary Degeneration of intervertebral disc of lumbar region with discogenic back pain and lower extremity pain Essential hypertension, benign Essential hypertension, benign Generalized anxiety disorder Generalized anxiety disorder Class 3 severe obesity due to excess calories without serious comorbidity with body mass index (BMI) of 40.0 to 44.9 in adult ([facility]) Essential hypertension, benign- Primary Essential hypertension, benign Generalized anxiety disorder Generalized anxiety disorder Primary localized osteoarthritis of hips, bilateral Degeneration of intervertebral disc of lumbar region with discogenic back pain and lower extremity pain Fibromyalgia syndrome Unspecified myalgia and myositis Degenerative lumbar spinal stenosis- Primary Spinal stenosis of lumbar region Pain of right hip joint Neck pain Cervicalgia Acute pain of left wrist Other specified joint disorders, right hip- Primary Primary localized osteoarthritis of hips, bilateral Pain of right hip joint documented in this encounter [facility] HealthcareEvaluation note* Diagnosis Breast cancer screening by mammogram- Primary Annual physical exam Routine general medical examination at a health care facility Vitamin D deficiency Essential hypertension, benign Essential hypertension, benign Fibromyalgia syndrome Unspecified myalgia and myositis Generalized anxiety disorder Generalized anxiety disorder Acute non-recurrent pansinusitis Annual physical exam- Primary Routine general medical examination at a health care facility Essential hypertension, benign Essential hypertension, benign Fibromyalgia syndrome Unspecified myalgia and myositis Acute bronchitis due to other specified organisms- Primary Class 3 severe obesity due to excess calories without serious comorbidity with body mass index (BMI) of 40.0 to 44.9 in adult ([facility]) Essential hypertension, benign- Primary Essential hypertension, benign Fibromyalgia syndrome Unspecified myalgia and myositis Generalized anxiety disorder Generalized anxiety disorder Arthralgia, unspecified joint Class 3 severe obesity due to excess calories without serious comorbidity with body mass index (BMI) of 40.0 to 44.9 in adult ([facility]) Encounter for long-term (current) use of medications Encounter for long-term (current) use of other medications Primary localized osteoarthritis of hips, bilateral- Primary Degeneration of intervertebral disc of lumbar region with discogenic back pain and lower extremity pain Essential hypertension, benign Essential hypertension, benign Generalized anxiety disorder Generalized anxiety disorder Class 3 severe obesity due to excess calories without serious comorbidity with body mass index (BMI) of 40.0 to 44.9 in adult ([facility]) Essential hypertension, benign- Primary Essential hypertension, benign Generalized anxiety disorder Generalized anxiety disorder Primary localized osteoarthritis of hips, bilateral Degeneration of intervertebral disc of lumbar region with discogenic back pain and lower extremity pain Fibromyalgia syndrome Unspecified myalgia and myositis Degenerative lumbar spinal stenosis- Primary Spinal stenosis of lumbar region Pain of right hip joint Neck pain Cervicalgia Acute pain of left wrist Other specified joint disorders, right hip- Primary Primary localized osteoarthritis of hips, bilateral Pain of right hip joint documented in this encounter [facility] HealthcareEvaluation note* Diagnosis Breast cancer screening by mammogram- Primary Annual physical exam Routine general medical examination at a health care facility Vitamin D deficiency Essential hypertension, benign Essential hypertension, benign Fibromyalgia syndrome Unspecified myalgia and myositis Generalized anxiety disorder Generalized anxiety disorder Acute non-recurrent pansinusitis Annual physical exam- Primary Routine general medical examination at a health care facility Essential hypertension, benign Essential hypertension, benign Fibromyalgia syndrome Unspecified myalgia and myositis Acute bronchitis due to other specified organisms- Primary Class 3 severe obesity due to excess calories without serious comorbidity with body mass index (BMI) of 40.0 to 44.9 in adult ([facility]) Essential hypertension, benign- Primary Essential hypertension, benign Fibromyalgia syndrome Unspecified myalgia and myositis Generalized anxiety disorder Generalized anxiety disorder Arthralgia, unspecified joint Class 3 severe obesity due to excess calories without serious comorbidity with body mass index (BMI) of 40.0 to 44.9 in adult ([facility]) Encounter for long-term (current) use of medications Encounter for long-term (current) use of other medications Primary localized osteoarthritis of hips, bilateral- Primary Degeneration of intervertebral disc of lumbar region with discogenic back pain and lower extremity pain Essential hypertension, benign Essential hypertension, benign Generalized anxiety disorder Generalized anxiety disorder Class 3 severe obesity due to excess calories without serious comorbidity with body mass index (BMI) of 40.0 to 44.9 in adult ([facility]) Essential hypertension, benign- Primary Essential hypertension, benign Generalized anxiety disorder Generalized anxiety disorder Primary localized osteoarthritis of hips, bilateral Degeneration of intervertebral disc of lumbar region with discogenic back pain and lower extremity pain Fibromyalgia syndrome Unspecified myalgia and myositis Degenerative lumbar spinal stenosis- Primary Spinal stenosis of lumbar region Pain of right hip joint Neck pain Cervicalgia Acute pain of left wrist Other specified joint disorders, right hip- Primary Primary localized osteoarthritis of hips, bilateral Pain of right hip joint documented in this encounter [facility] HealthcareEvaluation note* Diagnosis Breast cancer screening by mammogram- Primary Annual physical exam Routine general medical examination at a health care facility Vitamin D deficiency Essential hypertension, benign Essential hypertension, benign Fibromyalgia syndrome Unspecified myalgia and myositis Generalized anxiety disorder Generalized anxiety disorder Acute non-recurrent pansinusitis Annual physical exam- Primary Routine general medical examination at a health care facility Essential hypertension, benign Essential hypertension, benign Fibromyalgia syndrome Unspecified myalgia and myositis Acute bronchitis due to other specified organisms- Primary Class 3 severe obesity due to excess calories without serious comorbidity with body mass index (BMI) of 40.0 to 44.9 in adult ([facility]) Essential hypertension, benign- Primary Essential hypertension, benign Fibromyalgia syndrome Unspecified myalgia and myositis Generalized anxiety disorder Generalized anxiety disorder Arthralgia, unspecified joint Class 3 severe obesity due to excess calories without serious comorbidity with body mass index (BMI) of 40.0 to 44.9 in adult ([facility]) Encounter for long-term (current) use of medications Encounter for long-term (current) use of other medications Primary localized osteoarthritis of hips, bilateral- Primary Degeneration of intervertebral disc of lumbar region with discogenic back pain and lower extremity pain Essential hypertension, benign Essential hypertension, benign Generalized anxiety disorder Generalized anxiety disorder Class 3 severe obesity due to excess calories without serious comorbidity with body mass index (BMI) of 40.0 to 44.9 in adult ([facility]) Essential hypertension, benign- Primary Essential hypertension, benign Generalized anxiety disorder Generalized anxiety disorder Primary localized osteoarthritis of hips, bilateral Degeneration of intervertebral disc of lumbar region with discogenic back pain and lower extremity pain Fibromyalgia syndrome Unspecified myalgia and myositis Degenerative lumbar spinal stenosis- Primary Spinal stenosis of lumbar region Pain of right hip joint Neck pain Cervicalgia Acute pain of left wrist Other specified joint disorders, right hip- Primary Primary localized osteoarthritis of hips, bilateral Pain of right hip joint documented in this encounter [facility] HealthcareEvaluation note* Diagnosis Breast cancer screening by mammogram- Primary Annual physical exam Routine general medical examination at a health care facility Vitamin D deficiency Essential hypertension, benign Essential hypertension, benign Fibromyalgia syndrome Unspecified myalgia and myositis Generalized anxiety disorder Generalized anxiety disorder Acute non-recurrent pansinusitis Annual physical exam- Primary Routine general medical examination at a health care facility Essential hypertension, benign Essential hypertension, benign Fibromyalgia syndrome Unspecified myalgia and myositis Acute bronchitis due to other specified organisms- Primary Class 3 severe obesity due to excess calories without serious comorbidity with body mass index (BMI) of 40.0 to 44.9 in adult ([facility]) Essential hypertension, benign- Primary Essential hypertension, benign Fibromyalgia syndrome Unspecified myalgia and myositis Generalized anxiety disorder Generalized anxiety disorder Arthralgia, unspecified joint Class 3 severe obesity due to excess calories without serious comorbidity with body mass index (BMI) of 40.0 to 44.9 in adult ([facility]) Encounter for long-term (current) use of medications Encounter for long-term (current) use of other medications Primary localized osteoarthritis of hips, bilateral- Primary Degeneration of intervertebral disc of lumbar region with discogenic back pain and lower extremity pain Essential hypertension, benign Essential hypertension, benign Generalized anxiety disorder Generalized anxiety disorder Class 3 severe obesity due to excess calories without serious comorbidity with body mass index (BMI) of 40.0 to 44.9 in adult ([facility]) Essential hypertension, benign- Primary Essential hypertension, benign Generalized anxiety disorder Generalized anxiety disorder Primary localized osteoarthritis of hips, bilateral Degeneration of intervertebral disc of lumbar region with discogenic back pain and lower extremity pain Fibromyalgia syndrome Unspecified myalgia and myositis Degenerative lumbar spinal stenosis- Primary Spinal stenosis of lumbar region Pain of right hip joint Neck pain Cervicalgia Acute pain of left wrist Degenerative lumbar spinal stenosis Spinal stenosis of lumbar region documented in this encounter [facility] HealthcareEvaluation note* Diagnosis Breast cancer screening by mammogram- Primary Annual physical exam Routine general medical examination at a health care facility Vitamin D deficiency Essential hypertension, benign Essential hypertension, benign Fibromyalgia syndrome Unspecified myalgia and myositis Generalized anxiety disorder Generalized anxiety disorder Acute non-recurrent pansinusitis Annual physical exam- Primary Routine general medical examination at a health care facility Essential hypertension, benign Essential hypertension, benign Fibromyalgia syndrome Unspecified myalgia and myositis Acute bronchitis due to other specified organisms- Primary Class 3 severe obesity due to excess calories without serious comorbidity with body mass index (BMI) of 40.0 to 44.9 in adult ([facility]) Essential hypertension, benign- Primary Essential hypertension, benign Fibromyalgia syndrome Unspecified myalgia and myositis Generalized anxiety disorder Generalized anxiety disorder Arthralgia, unspecified joint Class 3 severe obesity due to excess calories without serious comorbidity with body mass index (BMI) of 40.0 to 44.9 in adult ([facility]) Encounter for long-term (current) use of medications Encounter for long-term (current) use of other medications Primary localized osteoarthritis of hips, bilateral- Primary Degeneration of intervertebral disc of lumbar region with discogenic back pain and lower extremity pain Essential hypertension, benign Essential hypertension, benign Generalized anxiety disorder Generalized anxiety disorder Class 3 severe obesity due to excess calories without serious comorbidity with body mass index (BMI) of 40.0 to 44.9 in adult ([facility]) Essential hypertension, benign- Primary Essential hypertension, benign Generalized anxiety disorder Generalized anxiety disorder Primary localized osteoarthritis of hips, bilateral Degeneration of intervertebral disc of lumbar region with discogenic back pain and lower extremity pain Fibromyalgia syndrome Unspecified myalgia and myositis Degenerative lumbar spinal stenosis- Primary Spinal stenosis of lumbar region Pain of right hip joint Neck pain Cervicalgia Acute pain of left wrist Other specified joint disorders, right hip- Primary Primary localized osteoarthritis of hips, bilateral Pain of right hip joint documented in this encounter [facility] HealthcareEvaluation note* Diagnosis Breast cancer screening by mammogram- Primary Annual physical exam Routine general medical examination at a health care facility Vitamin D deficiency Essential hypertension, benign Essential hypertension, benign Fibromyalgia syndrome Unspecified myalgia and myositis Generalized anxiety disorder Generalized anxiety disorder Acute non-recurrent pansinusitis Annual physical exam- Primary Routine general medical examination at a health care facility Essential hypertension, benign Essential hypertension, benign Fibromyalgia syndrome Unspecified myalgia and myositis Acute bronchitis due to other specified organisms- Primary Class 3 severe obesity due to excess calories without serious comorbidity with body mass index (BMI) of 40.0 to 44.9 in adult ([facility]) Essential hypertension, benign- Primary Essential hypertension, benign Fibromyalgia syndrome Unspecified myalgia and myositis Generalized anxiety disorder Generalized anxiety disorder Arthralgia, unspecified joint Class 3 severe obesity due to excess calories without serious comorbidity with body mass index (BMI) of 40.0 to 44.9 in adult ([facility]) Encounter for long-term (current) use of medications Encounter for long-term (current) use of other medications Primary localized osteoarthritis of hips, bilateral- Primary Degeneration of intervertebral disc of lumbar region with discogenic back pain and lower extremity pain Essential hypertension, benign Essential hypertension, benign Generalized anxiety disorder Generalized anxiety disorder Class 3 severe obesity due to excess calories without serious comorbidity with body mass index (BMI) of 40.0 to 44.9 in adult ([facility]) Essential hypertension, benign- Primary Essential hypertension, benign Generalized anxiety disorder Generalized anxiety disorder Primary localized osteoarthritis of hips, bilateral Degeneration of intervertebral disc of lumbar region with discogenic back pain and lower extremity pain Fibromyalgia syndrome Unspecified myalgia and myositis Degenerative lumbar spinal stenosis- Primary Spinal stenosis of lumbar region Pain of right hip joint Neck pain Cervicalgia Acute pain of left wrist Pain of right hip joint- Primary documented in this encounter [facility] HealthcareEvaluation note* Diagnosis Breast cancer screening by mammogram- Primary Annual physical exam Routine general medical examination at a health care facility Vitamin D deficiency Essential hypertension, benign Essential hypertension, benign Fibromyalgia syndrome Unspecified myalgia and myositis Generalized anxiety disorder Generalized anxiety disorder Acute non-recurrent pansinusitis Annual physical exam- Primary Routine general medical examination at a health care facility Essential hypertension, benign Essential hypertension, benign Fibromyalgia syndrome Unspecified myalgia and myositis Acute bronchitis due to other specified organisms- Primary Class 3 severe obesity due to excess calories without serious comorbidity with body mass index (BMI) of 40.0 to 44.9 in adult ([facility]) Essential hypertension, benign- Primary Essential hypertension, benign Fibromyalgia syndrome Unspecified myalgia and myositis Generalized anxiety disorder Generalized anxiety disorder Arthralgia, unspecified joint Class 3 severe obesity due to excess calories without serious comorbidity with body mass index (BMI) of 40.0 to 44.9 in adult ([facility]) Encounter for long-term (current) use of medications Encounter for long-term (current) use of other medications Primary localized osteoarthritis of hips, bilateral- Primary Degeneration of intervertebral disc of lumbar region with discogenic back pain and lower extremity pain Essential hypertension, benign Essential hypertension, benign Generalized anxiety disorder Generalized anxiety disorder Class 3 severe obesity due to excess calories without serious comorbidity with body mass index (BMI) of 40.0 to 44.9 in adult ([facility]) Essential hypertension, benign- Primary Essential hypertension, benign Generalized anxiety disorder Generalized anxiety disorder Primary localized osteoarthritis of hips, bilateral Degeneration of intervertebral disc of lumbar region with discogenic back pain and lower extremity pain Fibromyalgia syndrome Unspecified myalgia and myositis Degenerative lumbar spinal stenosis- Primary Spinal stenosis of lumbar region Pain of right hip joint Neck pain Cervicalgia Acute pain of left wrist Pain of right hip joint- Primary Degenerative lumbar spinal stenosis Spinal stenosis of lumbar region Generalized anxiety disorder Generalized anxiety disorder Essential hypertension, benign Essential hypertension, benign Dyslipidemia Other and unspecified hyperlipidemia documented in this encounter [facility] and physical note* Clinical Note Date No Information [facility] [employer] Phone: Instructions* Date Instruction Additional Infor mation No Information [facility] [employer] [place] [employer] Phone: Progress note* Clinical Note Date No Information [facility] [employer] Phone: Reason for referral (narrative)* Reason For Referral No Information [facility] Work Phone: Reason for referral (narrative)No reason for referral [facility]: Reason for visit Narrative* Rehabilitation - Outpatient (Routine) - AuthorizedSpecialtyDiagnoses / ProceduresReferred By ContactReferred To ContactPhysical Therapy Diagnoses Other specified joint disorders, right hip Pain in right hip Unilateral primary osteoarthritis, right hip Procedures DE PHYSICAL THERAPY EVALUATION LOW COMPLEX 20 MINS Ayanna Watts DO [address] [place] [address] Phone: tel: fax: Cirilo Kaplan, PT [address] [place] [address] Phone: tel: fax: Referral IDStatusReasonStart DateExpiration DateVisits RequestedVisits [id number] [facility] HealthcareReason for visit Narrative* Rehabilitation - Outpatient (Routine) - AuthorizedSpecialtyDiagnoses / ProceduresReferred By ContactReferred To ContactPhysical Therapy Diagnoses Other specified joint disorders, right hip Pain in right hip Unilateral primary osteoarthritis, right hip Procedures DE PHYSICAL THERAPY EVALUATION LOW COMPLEX 20 MINS Ayanna Watts, DO [address] [place] [address] Phone: tel: fax: Cirilo Kaplan, PT [address] [place] [address] Phone: tel: fax: Referral IDStatusReasonStart DateExpiration DateVisits RequestedVisits [id number]/ [facility] Summary Purpose Family History Family Member Type Diagnosis Age At Onset Mother Problem (finding) Cancer BrotherProblem (finding)Family history of Blood clotsBrotherProblem (finding) Congenital heart diseaseFatherProblem (finding)Congenital heart diseaseBrother Problem (finding)Cancer Relationship Condition Age at Onset Recorded Date/T brie father Myocardial infarction Unknown brotherHistory of heart surgeryUnknownFactor V Leiden mutationUnknownmother Malignant neuroendocrine neoplasmUnknownbrotherMalignant neoplasm of larynx UnknownbrotherFactor V Leiden mutationUnknown Advance Directives Directive Yes / No Effective Date File Name No Information Advance Directive Response Recorded Date/ Time Advance Directives No October 02 4:48pm Advance Directive Response Recorded Date/ Time Advance Directives No October 02 5:48pm Advance Directive Response Recorded Date/ Time Advance Directives No November 9:55am Chief Complaint and Reason for Visit Chief Complaint Admit Date M25.551 - Pain in right hip December 052024 8:01am NEW RT HIP PAIN NX PT HAD PREVIOUS MRI S eptember 2024 8:23am Chief Complaint Admit Date hip and back pain May 03, 2024 1:43pm Additional Source Comments INFORMATION SOURCE (unrecogn ized section and content) DATE CREATED AUTHOR 12/20/2021 [facility] DATE CREATED AUTHOR AUTHOR'S ORGANIZ ATION 03/01/2023 [facility] DATE CREATED AUTHOR AUTHOR'S ORGANIZ ATION 08/19/2024 [facility] DATE CREATED AUTHOR AUTHOR'S ORGANIZ ATION 10/09/2024 [facility] EPIC DATE CREATED AUTHOR AUTHOR'S ORGANIZ ATION 10/29/2024 [facility] DATE CREATED AUTHOR AUTHOR'S ORGANIZ ATION 12/12/2024 [facility] Care Teams (unrecognized sec tion and content) Team Status: Active Member Role Status Dates Ken Larry MD Primary Care Provider Active Team Status: Inactive Member Role Status Dates Ken Larry MD Primary Care Provider Active S tart: December 05, 2024 End: December 05, 2024Lupe Swenson II ProviderActiveStart: December 05, 2024 End: December 05, 2024 Team Status: Active Member Role Status Dates Ken Larry MD Primary Care Provider Active S tart: December 05, 2024 Lupe Swenson II ProviderActiveStart: December 05, 2024 Team MemberRelationshipSpecialtyStart DateEnd Date Ken Larry MD [address] [place] [address] PCP - GeneralFamily Medicine07/31/23 Ken Larry MD [address] [place] [address] PCP - [facility] [employer]09/10/1911Team MemberRelationshipSpecialty Start DateEnd Date Ken Larry MD [address] [place] [address] [facility] - [facility] Ken Larry MD [address] [place] [address] PCP - [facility]09/10/1911 Name Effective Dates (start - stop) Status Members No Information Team MemberRelationshipSpecialtyStart DateEnd Date Ken Larry MD [address] [place] [address] PCP - [facility]07/31/23 Ken Larry MD [address] [place] [address] PCP - [facility] [employer]09/10/1911Team MemberRelationshipSpecialty Start DateEnd Date Ken Larry MD [address] [place] [address] [facility] - [facility]/23 Ken Larry MD [address] [place] [address] PCP - [facility] [employer]09/10/1911Team MemberRelationshipSpecialty Start DateEnd Date Ken Larry MD [address] [place] [address] PCP - [facility]07/31/23 Ken Larry MD [address] [place] [address] [facility]09/10/1911Team MemberRelationshipSpecialty Start DateEnd Date Ken Larry MD [address] [place] [address] [facility] - [facility]07/31/23 Ken Larry MD [address] [place] [address] [facility] - [facility]09/10/1911Team MemberRelationshipSpecialty Start DateEnd Date Ken Larry MD [address] [place] [address] [facility] - [facility]07/31/23 Ken Larry MD [address] [place] [address] [facility] - [facility]09/10/1911Team MemberRelationshipSpecialty Start DateEnd Date Ken Larry MD [address] [place] [address] [facility] - [facility]07/31/23 Ken Larry MD [address] [place] [address] [facility] - [facility]09/10/1911Team MemberRelationshipSpecialty Start DateEnd Date Ken Larry MD [address] [place] [address] PCP - [facility]07/31/23 Ken Larry MD [address] [place] [address] PCP - [facility] [employer]09/10/1911Team MemberRelationshipSpecialty Start DateEnd Date Ken Larry MD [address] [place] [address] PCP - [facility]07/31/23 Ken Larry MD [address] [place] [address] PCP - Medical [facility]09/10/1911 Team Status: Inactive Member Role Status Dates Ken Larry MD Primary Care Provider Active S tart: May 03, 2024 End: May 03luztMelissa Fink ProviderActiveStart: May 03, 2024 End: May 03, 2024Team MemberRelationshipSpecialtyStart DateEnd Date Ken Larry MD [address] [place] [address] PCP - [facility]07/31/23 Ken Larry MD [address] [place] [address] PCP - [facility] [employer]09/10/1911Team MemberRelationshipSpecialty Start DateEnd Date Ken Larry MD [address] [place] [address] PCP - [facility]07/31/23 Ken Larry MD [address] [place] [address] PCP - [facility] [employer]09/10/1911Team MemberRelationshipSpecialty Start DateEnd Date Ken Larry MD [address] [place] [address] PCP - [facility]07/31/23 Ken Larry MD [address] [place] [address] PCP - [facility]09/10/1911Team MemberRelationshipSpecialty Start DateEnd Date Ken Larry MD [address] [place] [address] PCP - [facility]07/31/23 Ken Larry MD [address] [place] [address] PCP - [facility]09/10/1911Team MemberRelationshipSpecialty Start DateEnd Date Ken Larry MD [address] [place] [address] PCP - [facility]07/31/23 Ken Larry MD [address] [place] [address] PCP - [facility]09/10/1911Team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
[2025-01-29 08:42] LABS: Hematocrit 38.8 % (36.0-48.0); Hemoglobin 12.2 g/dL (12.0-16.0); Mean Corpuscular HGB Conc 31.4 g/dL (29.9-35.2); Mean Corpuscular Hemoglobin 30.0 pg (26.7-34.0); Mean Corpuscular Volume 95.6 fL (81.0-99.0); Platelet Count 245 10^3/uL (150-450); Red Blood Count 4.06 10^6/uL (4.20-5.40); White Blood Count 2.9 10^3/uL (4.0-11.0)
[2025-01-29 09:22] LABS: Alanine Aminotransferase 21 U/L (14-59); Albumin Globulin Ratio 1.1; Albumin Level 3.5 g/dL (3.4-5.0); Alkaline Phosphatase 107 U/L (46-116); Anion Gap 9.4; Aspartate Amino Transferase 19 U/L (15-37); Blood Urea Nitrogen 25.0 mg/dL (7.0-18.0); Calcium 8.9 mg/dL (8.5-10.1); Carbon Dioxide 30.8 mmol/L (21.0-32.0); Chloride 106 mmol/L (98-107); Cholesterol 148 mg/dL (<=200); Estimated GFR (African America >60 (>=60 mL/min/1.73m^2); Estimated GFR (Non-African Ame >60 (>=60 mL/min/1.73m^2); Globulin 3.1 g/dL; Glucose 78 mg/dL (74-106); HDL Cholesterol 55 mg/dL (40-60); Potassium 4.2 mmol/L (3.5-5.1); Sodium 142 mmol/L (136-145); Thyroid Stimulating Hormone 2.246 uIU/mL (0.358-3.740); Total Protein 6.6 g/dL (6.4-8.2); Triglycerides 93 mg/dL (<=150); VLDL CHOLESTEROL 18.6 mg/dL
[2025-01-29 09:50] LABS: Atypical Lymphocytes % Manual 2.0 %; Atypical Lymphocytes Abs Man 0.05; Band Neutrophils Absolute 0.1 10^3/uL (0.0-0.3); Basophils Abs Manual 0.00 10^3/uL (0.00-0.10); Basophils Percent Manual 0.0 % (0.2-2.0); Eosinophils Absolute Manual 0.26 10^3/uL (0.00-0.70); Eosinophils Percent Manual 9.0 % (0.9-7.0); Lymphocytes Absolute Manual 0.89 10^3/uL (1.20-3.80); Lymphocytes Percent Manual 31.0 % (20.5-60.0); Monocytes Absolute Manual 0.43 10^3/uL (0.30-0.80); Monocytes Percent Manual 15.0 % (1.7-12.0); Segmented Neut Absolute Manual 1.18 10^3/uL (1.4-6.5); Segmented Neutrophils % Manual 41.0 (43.0-75.0)
== END 2025-01-29 08:04 | disposition home or self-care (01) ==
LOC: LAB 08:05
PROVIDERS: PCP Family Medicine; Visit Provider Family Medicine
DX: Z00.00 Encounter for general adult medical examination without abnormal findings (principal)
CPT/HCPCS: 36415; 80053; 80061; 83036; 84443; 85007; 85027